=== PATIENT | female | born 1975 | race Caucasian/White ===

== ENCOUNTER 2019-12-02 08:39 | Outpatient (CLI) | payer BC, SELFPAY ==
[2019-12-02 09:02] LABS: Hematocrit 41.5 % (37.0-47.0); Hemoglobin 13.4 g/dL (12.0-15.0); Mean Corpuscular HGB Conc 32.3 g/dl (32-36); Mean Corpuscular Hemoglobin 27.1 pg (26-34); Mean Corpuscular Volume 83.8 fl (80-100); Platelet Count Result 435 k/mm3 (150-375); Red Blood Count 4.95 M/mm3 (4.2-5.4); Red Cell Distribution Width 13.7 % (11.5-14.5); White Blood Count 9.2 K/mm3 (4.5-10.0)
[2019-12-02 09:38] LABS: Creatinine Urine 172.4 mg/dL
[2019-12-02 09:43] LABS: MALB Creatinine Ratio 3.8 mg/g (0-30); Microalbumin Urine Random 6.5 mg/L (0-16.7)
[2019-12-02 11:12] LABS: Alanine Aminotransferase 29 U/L (4-35); Albumin Level 4.3 g/dL (3.5-5.1); Alkaline Phosphatase 81 U/L (38-126); Anion Gap 8 mmol/L (8-16); Aspartate Amino Transferase 34 U/L (14-36); Bilirubin,Total 0.2 mg/dL (0.2-1.3); Blood Urea Nitrogen 14 mg/dL (7-17); Calcium 9.6 mg/dL (8.4-10.2); Carbon Dioxide 31 mmol/L (22-30); Chloride 100 mmol/L (98-107); Estimated Glomerular Filt Rate > 60; Glucose 182 mg/dL (65-105); Magnesium 1.7 mg/dL (1.6-2.3); Potassium 4.2 mmol/L (3.4-5.0); Sodium 139 mmol/L (137-145)
[2019-12-02 11:45] LABS: Thyroid Stimulating Hormone 0.822 uIU/mL (0.465-4.680)
[2019-12-02 12:20] LABS: Folic Acid > 20.0 ng/mL (2.76->20)
== END 2019-12-02 08:40 | disposition home or self-care (01) ==
LOC: ANHLAB 08:41
PROVIDERS: Physician Assistant; PCP Internal Medicine; Visit Provider Internal Medicine
DX: R53.83 Other fatigue (principal); I10 Essential (primary) hypertension; E11.65 Type 2 diabetes mellitus with hyperglycemia
CPT/HCPCS: 36415; 80053; 82043; 82607; 82746; 83735; 84443; 85027

== ENCOUNTER 2020-01-16 17:07 | Outpatient (CLI) | payer BC, SELFPAY ==
[2020-01-16 17:41] LABS: Add Urine Microscopic? YES; Appearance Urine Clear (Clear); Bilirubin Urine Negative (Negative); Blood Urine Negative (Negative); Color Urine Yellow (Yellow); Glucose Urine UA Negative (Negative); Ketones Urine Trace mg/dL (Negative); Leukocyte Esterase Ur Negative LEU/UL (Negative); Nitrate Urine Negative (Negative); Protein Urine Negative (Negative); RBC Urine 0-2 /hpf (0-2); Specific Grav Ur 1.023 (1.001-1.035); Squamous Epithelial Cell Urine Rare /hpf (Few); Urobilinogen Urine Negative mg/dL (<2.0); WBC Urine 0-3 /hpf
== END 2020-01-16 17:08 | disposition home or self-care (01) ==
LOC: ANHLAB 17:08
PROVIDERS: PCP Internal Medicine; Visit Provider Internal Medicine
DX: R10.9 Unspecified abdominal pain (principal)
CPT/HCPCS: 81001

== ENCOUNTER 2021-02-22 07:54 | Outpatient (CLI) | payer BC, SELFPAY ==
[2021-02-22 08:37] LABS: Basophils Absolute Auto 0.1 K/mm3 (0.0-0.1); Basophils Percent Auto 0.7 % (0.2-1.2); Eosinophils Absolute Auto 0.1 K/mm3 (0-0.3); Eosinophils Percent Auto 1.9 % (0-4.4); Hematocrit 36.9 % (37.0-47.0); Hemoglobin 11.9 g/dL (12.0-15.0); Immature Granulocyte Absolute 0.02 K/mm3 (0.00-0.031); Immature Granulocyte Percent A 0.3 % (0-0.5); Lymphocytes Absolute Auto 2.49 K/mm3 (0.9-3.2); Lymphocytes Percent Auto 33.9 % (18.3-44.2); Mean Corpuscular HGB Conc 32.2 g/dl (32-36); Mean Corpuscular Hemoglobin 27.6 pg (26-34); Mean Corpuscular Volume 85.6 fl (80-100); Mean Platelet Volume 8.3 fl (7.4-10.4); Monocytes Absolute Auto 0.6 K/mm3 (0.1-0.6); Monocytes Percent Auto 7.6 % (2.6-8.5); Neutrophils Absolute Auto 4.1 K/mm3 (1.3-6.7); Neutrophils Percent Auto 55.6 % (45.5-73.1); Platelet Count Result 335 k/mm3 (150-375); Red Blood Count 4.31 M/mm3 (4.2-5.4); Red Cell Distribution Width 13.9 % (11.5-14.5); White Blood Count 7.4 K/mm3 (4.5-10.0)
[2021-02-22 08:49] LABS: Creatinine Urine 129.5 mg/dL
[2021-02-22 08:53] LABS: Microalbumin Urine Random 6.5 mg/L (0-16.7)
[2021-02-22 09:28] LABS: Alanine Aminotransferase 20 U/L (4-35); Albumin Level 4.2 g/dL (3.5-5.1); Alkaline Phosphatase 66 U/L (38-126); Anion Gap 7 mmol/L (8-16); Aspartate Amino Transferase 31 U/L (14-36); Bilirubin,Total 0.2 mg/dL (0.2-1.3); Blood Urea Nitrogen 18 mg/dL (7-17); Calcium 9.6 mg/dL (8.4-10.2); Carbon Dioxide 29 mmol/L (22-30); Chloride 101 mmol/L (98-107); Cholesterol 134 mg/dL (0-200); Estimated Glomerular Filt Rate > 60; Glucose 160 mg/dL (65-110); HDL Direct 38 mg/dL; Magnesium 1.7 mg/dL (1.6-2.3); Potassium 4.6 mmol/L (3.4-5.0); Sodium 137 mmol/L (137-145); Triglycerides 100 mg/dL (<150)
[2021-02-22 09:39] LABS: LDL Cholesterol Direct 74 mg/dL
[2021-02-22 10:34] LABS: Folic Acid 18.6 ng/mL (2.76->20)
[2021-02-22 12:18] LABS: Thyroid Stimulating Hormone 0.501 uIU/mL (0.465-4.680)
== END 2021-02-22 07:55 | disposition home or self-care (01) ==
PROVIDERS: PCP Internal Medicine; Referring Provider Internal Medicine; Visit Provider Nurse Practitioner Family
DX: E11.65 Type 2 diabetes mellitus with hyperglycemia (principal); R53.83 Other fatigue; E78.5 Hyperlipidemia, unspecified; E11.9 Type 2 diabetes mellitus without complications; I10 Essential (primary) hypertension
CPT/HCPCS: 36415; 80053; 80061; 82043; 82607; 82746; 83735; 84443; 85025

== ENCOUNTER → 2021-03-11 08:38 | Outpatient (CLI) | payer BC, SELFPAY ==
[2021-03-11 20:05] LABS: SARS-CoV-2 RNA PCR Negative
== END ==
PROVIDERS: PCP Internal Medicine; Visit Provider Internal Medicine
DX: R05.9 Cough, unspecified (principal); Z20.822 Contact with and (suspected) exposure to COVID-19
CPT/HCPCS: C9803; U0003; U0005

== ENCOUNTER → 2021-03-24 03:05 | Outpatient (CLI) | payer BC, SELFPAY ==
[2021-03-24 19:25] LABS: SARS-CoV-2 RNA PCR Negative
== END ==
PROVIDERS: PCP Internal Medicine; Visit Provider Internal Medicine
DX: Z20.822 Contact with and (suspected) exposure to COVID-19 (principal)
CPT/HCPCS: C9803; U0003; U0005

== ENCOUNTER → 2021-03-25 15:10 | Outpatient (CLI) | payer BC, SELFPAY ==
--- NOTE | ~2021-03-25 | XR_ITS ---
EXAMINATION: XR knee RT 3V DATE: 03/25/2021 15:45 INDICATION: Right knee pain. TECHNIQUE: 3 views of right knee including standing views were obtained. COMPARISON: None. FINDINGS: Bone alignment is normal. No fracture. There is mild tricompartmental osteoarthritis charac terized by tiny marginal osteophytes. No joint space narrowing. There is a small knee joint effusion. IMPRESSION: 1. Mild right knee osteoarthritis. 2. Small right knee joint effusion. Reviewed, dictated and finalized at location A. OSE CELLAR CHARGE HAND
--- NOTE | ~2021-03-25 | XR_ITS ---
EXAMINATION: XR knee LT 3V DATE: 03/25/2021 15:45 INDICATION: Left knee pain. TECHNIQUE: 3 views of left knee including standing views were obtained. COMPARISON: None. FINDINGS: Bone alignment is normal. No fracture. There is mild tricompartment osteoarthritis characte rized by tiny marginal osteophytes. No joint space narrowing. No knee joint effusion. IMPRESSION: 1. Mild left knee osteoarthritis. Reviewed, dictated and finalized at location A. CER
== END ==
PROVIDERS: PCP Internal Medicine; Visit Provider Internal Medicine
DX: M17.0 Bilateral primary osteoarthritis of knee (principal); M25.461 Effusion, right knee
CPT/HCPCS: 73562

== ENCOUNTER 2021-05-23 07:36 | Outpatient (CLI) | payer BC, SELFPAY ==
--- NOTE | 2021-05-27 15:02 | WPDSLEEPSTUD ---
Sleep Study Date of Study: 05/23/21 <Allie Bullard, DO - Last Filed: 05/27/21 16:06> Ordering Provider: Baltazar Hernandez DO <Allie Bullard DO - Last Filed: 05/27/21 16:06> Interpreting Physician: Allie Bullard DO <Allie Bullard DO - Last Filed: 05/27/21 16:06> Sleep Study Type: Split Polysomnogram <Allie Bullard DO - Last Filed: 05/27/21 16:06> Height: 1.88 m <Allie Bullard DO - Last Filed: 05/27/21 16:06> Weight: 139.706 kg <Allie Bullard DO - Last Filed: 05/27/21 16:06> Body Mass Index: 39.5 <Allie Bullrad DO - Last Filed: 05/27/21 16:06> Neck Circumference (inches): 19 <Allie Bullard DO - Last Filed: 05/27/21 16:06> [place]: 12 <Allie Bullard DO - Last Filed: 05/27/21 16:06> Reason for Sleep Study Previously diagnosed with MACARENA and prescribed CPAP. Uses CPAP regularly. <Allie Bullard DO - Last Filed: 05/27/21 16:06> Sleep History The patient is a 45-year-old female with asthma, depression, diabetes, hypertension, hyperlipidemia, osteoarthritis, obesity and known MACARENA that had a sleep study ordered by her PCP. the patient rarely awakens from sleep short of breath. She rarely awakens at night with heartburn, belching or cough. She frequently snores loud enough that others complain. she frequently has trouble sleeping when she has a cold. She rarely wakes up gasping for air throughout the night. She Thatch Ali has breathing problems at night observed by others. She occasionally sweats excessively at night. She rarely notices heart palpitations or irregular heartbeats during the night. She occasionally falls asleep during the day but never while driving. She rarely has trouble at school or work due to sleepiness. She occasionally feels unable to move while waking up or falling asleep. She occasionally experiences vivid dreamlike scenes upon awakening or falling asleep. She denies cataplexy. She occasionally has nightmares. She rarely has thoughts racing through her mind. She occasionally feels sad or depressed. She occasionally has anxiety. She denies noticing parts of her body jerk. She denies kicking throughout the night. She occasionally has crawling and aching feelings in her legs as well as leg pain during the night. She denies grinding her teeth during sleep and awakening with morning jaw pain. She occasionally is bothered by pain during the day and awakened by pain during the night. She occasionally wakes up feeling stiff in the morning with sore achy muscles. She occasionally wakes up with pain neck, spine or other joints. She goes to bed between 9 and 10:00 p.m. on weekdays and between 10 and 11:00 p.m. on the weekends. It takes her 1 hour to fall asleep. She wakes up 4 times throughout the night she roll over or switch positions. She is able to fall back asleep within minutes. She wakes up at 6:30 a.m. on the weekdays and between 730 and 8:00 a.m. on the weekends. She typically gets 8 hours of sleep per night. She will not stay in bed after waking up in the morning. She currently lives with her . She denies consuming any caffeinated beverages within 2 hours of bedtime. She does not engage in physical exercise before bedtime. She will watch television before falling asleep. She will occasionally take naps in the afternoon or the evening but they are not refreshing. She drinks 3-4 caffeinated beverages per day. She quit smoking several years ago. She denies alcohol and recreational drug use. <Allie Bullard DO - Last Filed: 05/27/21 16:06> [facility] Past Medical History Medical History: Medical History Anxiety Hyperlipidemia Hypertension Sleep apnea in adult Type 2 diabetes mellitus with hyperglycemia <Allie Bullard DO - Last Filed: 05/27/21 16:06> Family History Family History:
[2021-05-27 16:06] VITALS: BMI 39.5
== END 2021-05-24 08:08 | disposition home or self-care (01) ==
LOC: ANHCSM 07:38
PROVIDERS: PCP Internal Medicine; Visit Provider Internal Medicine
DX: G47.33 Obstructive sleep apnea (adult) (pediatric) (principal)
CPT/HCPCS: 95811

== ENCOUNTER 2021-08-23 07:02 | Outpatient (CLI) | payer BC, SELFPAY ==
[2021-08-23 07:41] LABS: Basophils Absolute Auto 0.1 K/mm3 (0.0-0.1); Basophils Percent Auto 0.6 % (0.2-1.2); Eosinophils Absolute Auto 0.1 K/mm3 (0-0.3); Eosinophils Percent Auto 1.4 % (0-4.4); Hematocrit 40.6 % (37.0-47.0); Hemoglobin 12.7 g/dL (12.0-15.0); Immature Granulocyte Absolute 0.03 K/mm3 (0.00-0.031); Immature Granulocyte Percent A 0.3 % (0-0.5); Lymphocytes Absolute Auto 2.37 K/mm3 (0.9-3.2); Lymphocytes Percent Auto 26.1 % (18.3-44.2); Mean Corpuscular HGB Conc 31.3 g/dl (32-36); Mean Corpuscular Hemoglobin 27.6 pg (26-34); Mean Corpuscular Volume 88.3 fl (80-100); Mean Platelet Volume 8.2 fl (7.4-10.4); Monocytes Absolute Auto 0.6 K/mm3 (0.1-0.6); Monocytes Percent Auto 6.9 % (2.6-8.5); Neutrophils Absolute Auto 5.9 K/mm3 (1.3-6.7); Neutrophils Percent Auto 64.7 % (45.5-73.1); Platelet Count Result 395 k/mm3 (150-375); Red Cell Distribution Width 14.2 % (11.5-14.5); White Blood Count 9.1 K/mm3 (4.5-10.0)
[2021-08-23 07:58] LABS: Cholesterol 150 mg/dL (0-200); HDL Direct 41 mg/dL; Triglycerides 95 mg/dL (<150)
[2021-08-23 08:11] LABS: LDL Cholesterol Direct 79 mg/dL
[2021-08-23 08:13] LABS: Iron 69 ug/dL (37-170)
[2021-08-23 08:14] LABS: Creatinine Urine 131.7 mg/dL
[2021-08-23 08:19] LABS: Microalbumin Urine Random 6.6 mg/L (0-16.7)
[2021-08-23 08:23] LABS: Percent Iron Saturation 18 % (20-50)
[2021-08-23 08:27] LABS: Thyroid Stimulating Hormone 0.688 uIU/mL (0.465-4.680)
[2021-08-23 09:09] LABS: Folic Acid 19.2 ng/mL (2.76->20)
== END 2021-08-23 07:03 | disposition home or self-care (01) ==
LOC: ANHLAB 07:04
PROVIDERS: PCP Internal Medicine; Visit Provider Internal Medicine
DX: E11.65 Type 2 diabetes mellitus with hyperglycemia (principal); D64.9 Anemia, unspecified; R53.83 Other fatigue
CPT/HCPCS: 36415; 80061; 82043; 82607; 82746; 83540; 83550; 84443; 85025

== ENCOUNTER 2021-09-24 07:07 | Outpatient (CLI) | payer BC, SELFPAY ==
[2021-09-24 08:15] LABS: Alanine Aminotransferase 18 U/L (6-35); Albumin Level 4.3 g/dL (3.5-5.1); Alkaline Phosphatase 77 U/L (38-126); Anion Gap 5 mmol/L (8-16); Aspartate Amino Transferase 24 U/L (14-36); Bilirubin,Total 0.3 mg/dL (0.2-1.3); Blood Urea Nitrogen 19 mg/dL (7-17); Calcium 9.1 mg/dL (8.4-10.2); Carbon Dioxide 30 mmol/L (22-30); Chloride 102 mmol/L (98-107); Estimated Glomerular Filt Rate > 60; Glucose 118 mg/dL (65-110); Potassium 4.1 mmol/L (3.4-5.0); Sodium 137 mmol/L (137-145)
== END 2021-09-24 07:08 | disposition home or self-care (01) ==
LOC: ANHLAB 07:08
PROVIDERS: PCP Internal Medicine; Visit Provider Internal Medicine
DX: E11.65 Type 2 diabetes mellitus with hyperglycemia (principal); D64.9 Anemia, unspecified; R53.83 Other fatigue
CPT/HCPCS: 36415; 80053

== ENCOUNTER 2022-01-07 14:31 | Emergency (ER) | payer BC, SELFPAY ==
[2022-01-07] VITALS (16 sets, daily range): BP systolic 123–157; BP diastolic 77–99; PULSE 91–114; RESP 10–19; TEMP 36.5; O2SAT 94–99
--- NOTE | 2022-01-07 14:35 | ECG_ITS ---
Measurements Intervals Banks Rate: 97 P: 28 ME: 164 QRS: -19 QRSD: 100 T: 66 QT: 354 QTc: 450 Interpretive Statements SINUS RHYTHM DELAYED PRECORDIAL R/S TRANSITION BORDERLINE ECG NO PREVIOUS ECG AVAILABLE FOR COMPARISON Electronically Signed On 01-07-2022 15:01:05 CDT by Richy Santiago D.O.
[2022-01-07] MEDS: SODIUM CHLORIDE 0.9% IV 1,000 ML 998.89 ML IV CONT (16:13)
[2022-01-07 16:15] LABS: Glucose Point of Care 84 mg/dl (65-105)
[2022-01-07 16:22] LABS: Basophils Absolute Auto 0.1 K/mm3 (0.0-0.1); Basophils Percent Auto 0.5 % (0.2-1.2); Eosinophils Absolute Auto 0.1 K/mm3 (0-0.3); Eosinophils Percent Auto 1.3 % (0-4.4); Hematocrit 41.3 % (37.0-47.0); Hemoglobin 13.5 g/dL (12.0-15.0); Immature Granulocyte Absolute 0.03 K/mm3 (0.00-0.031); Immature Granulocyte Percent A 0.3 % (0-0.5); Lymphocytes Absolute Auto 2.78 K/mm3 (0.9-3.2); Lymphocytes Percent Auto 27.9 % (18.3-44.2); Mean Corpuscular HGB Conc 32.7 g/dl (32-36); Mean Corpuscular Hemoglobin 27.9 pg (26-34); Mean Corpuscular Volume 85.3 fl (80-100); Monocytes Absolute Auto 0.6 K/mm3 (0.1-0.6); Monocytes Percent Auto 6.1 % (2.6-8.5); Neutrophils Absolute Auto 6.4 K/mm3 (1.3-6.7); Neutrophils Percent Auto 63.9 % (45.5-73.1); Platelet Count Result 445 k/mm3 (150-375); Red Blood Count 4.84 M/mm3 (4.2-5.4); Red Cell Distribution Width 14.6 % (11.5-14.5)
--- NOTE | 2022-01-07 16:31 | ED.GENADULT ---
HPI - General Adult General Chief complaint: Arrhythmia/Palpitations Stated complaint: rapid HR all morning Time Seen by Provider: 01/07/22 15:30 History of Present Illness HPI narrative: this is a 38-year-old woman presenting to ED with a chief complaint of palpitations for the month. Patient's had COVID on December 15. She says started about 1 week after that she is having intermittent episodes of palpitations and not feeling right. There is associated with some shortness of breath. There is no associated chest pain. Usually they last for several hours and then resolve on their own. Today they started ADM and last until 1:00 p.m.. She is not currently having palpitations. The patient denies any source of dehydration such as nausea vomiting diarrhea decreased oral intake. Patient has a history of anxiety with panic attacks although she says this is not feel like them. Patient denies any lower extremity edema, history of blood clots, recent trauma or or cancer. Related Data Home Medications Medication Instructions Recorded Confirmed escitalopram oxalate 20 mg tablet 20 mg PO DAILY 03/16/19 12/31/21 multivitamin (Multiple Vitamins 1 tablet PO DAILY 03/16/19 12/31/21 tablet) venlafaxine 150 mg 150 mg PO DAILY 03/16/19 12/31/21 capsule,extended release 24 hr melatonin 10 mg capsule 10 mg PO QHS 12/31/21 12/31/21 Allergies Allergy/AdvReac Type Severity Reaction Status Date / Time vancomycin Allergy Mild Hives Verified 12/31/21 09:04 Review of Systems Review of Systems: CONSTITUTIONAL: Denies night sweats. EYES: No eye pain ENT: Denies rhinorrhea CARDIOVASCULAR: Denies palpitations RESPIRATORY: Denies hemoptysis GASTROINTESTINAL: Denies hematemesis GENITOURINARY: Denies hematuria. SKIN: Denies rash MUSCULOSKELETAL: Denies myalgia. NEUROLOGIC: Denies weakness. PSYCHIATRIC: Denies delusions PMFSH Past Medical History Medical History Anemia Anxiety Bilateral hand numbness Bilateral knee pain Hyperlipidemia Hypertension Insomnia Obesity MACARENA (obstructive sleep apnea) Peripheral neuropathy Type 2 diabetes mellitus with hyperglycemia Surgical History Surgical History History of surgery on wrist 05/05/21, carpal tunnel right Previous back surgery x2 Family History Family History Other Asthma Depression Diabetes mellitus Family history of alcoholism Family history of lymphoma Family history of thyroid disease Hypertension Malignant neoplasm of prostate Social History Social History Smoking packs per day: 0.5 Smoking cigarettes per day: 10.0 Years smoked: 10 Smoking pack-years: 5.00 Smoking status: Former smoker Alcohol intake: never Substance use: never Exam Narrative: APPEARANCE: No apparent distress. Head atraumatic. EYES: PERRLA/EOMI, NOSE: Normal no drainage NECK: Supple, Trachea midline RESPIRATORY: CTAB, No increased work of breathing. CARDIOVASCULAR: S1S2 appreciated ABDOMINAL: Soft, nontender, nondistended, MUSCULOSKELETAl: No obvious deformities NEURO: Alert. Moving 4/4 extremities SKIN:: Warm, dry. Normal color PSYCHIATRIC: Normal affect Course Vital Signs Vital signs: Vital Signs Temperature 97.7 F 01/07/22 14:36 Pulse Rate 94 01/07/22 14:36 Respiratory Rate 18 01/07/22 14:36 Blood Pressure 157/84 H 01/07/22 14:36 Pulse Oximetry 99 01/07/22 14:36 Oxygen Delivery Room Air 01/07/22 14:36 Temperature 97.7 F 01/07/22 14:36 Pulse Rate 94 01/07/22 14:36 Respiratory Rate 18 01/07/22 14:36 Blood Pressure 157/84 H 01/07/22 14:36 Pulse Oximetry 99 01/07/22 14:36 Oxygen Delivery Room Air 01/07/22 14:36 Medical Decision Making MDM Narrative Medical decision making narrative: Is
[2022-01-07 16:35] LABS: Anion Gap 10 mmol/L (8-16); Blood Urea Nitrogen 19 mg/dL (7-17); Calcium 9.5 mg/dL (8.4-10.2); Carbon Dioxide 27 mmol/L (22-30); Chloride 100 mmol/L (98-107); Estimated CRCL calculation 160 ml/min; Estimated Glomerular Filt Rate > 60; Glucose 83 mg/dL (65-110); Potassium 3.8 mmol/L (3.4-5.0); Sodium 137 mmol/L (137-145)
[2022-01-07 16:52] LABS: Troponin I < 0.012 ng/mL (0.000-0.034)
== END 2022-01-07 17:39 | disposition home or self-care (01) ==
PROVIDERS: Emergency Provider Emergency Medicine; PCP Internal Medicine
DX: R00.2 Palpitations (principal); I49.1 Atrial premature depolarization; E78.5 Hyperlipidemia, unspecified; I10 Essential (primary) hypertension; G47.33 Obstructive sleep apnea (adult) (pediatric); E11.42 Type 2 diabetes mellitus with diabetic polyneuropathy; E66.9 Obesity, unspecified; Z68.41 Body mass index [BMI] 40.0-44.9, adult; F41.9 Anxiety disorder, unspecified; Z87.891 Personal history of nicotine dependence; Z79.84 Long term (current) use of oral hypoglycemic drugs
CPT/HCPCS: 36415; 80048; 82948; 83735; 84484; 85025; 93005; 99284; J7030

== ENCOUNTER 2023-03-20 09:06 | Outpatient (CLI) | payer BC, SELFPAY ==
[2023-03-20 11:23] LABS: Basophils Absolute Auto 0.1 K/mm3 (0.0-0.1); Basophils Percent Auto 0.6 % (0.2-1.2); Eosinophils Absolute Auto 0.1 K/mm3 (0-0.3); Eosinophils Percent Auto 1.2 % (0-4.4); Hematocrit 44.6 % (37.0-47.0); Immature Granulocyte Absolute 0.04 K/mm3 (0.00-0.031); Immature Granulocyte Percent A 0.5 % (0-0.5); Immature Platelet Fraction Pct 1.5 % (0.9-11.2); Lymphocytes Absolute Auto 2.18 K/mm3 (0.9-3.2); Lymphocytes Percent Auto 26.5 % (18.3-44.2); Mean Corpuscular HGB Conc 31.4 g/dl (32-36); Mean Corpuscular Hemoglobin 27.4 pg (26-34); Mean Corpuscular Volume 87.3 fl (80-100); Mean Platelet Volume 8.5 fl (7.4-10.4); Monocytes Absolute Auto 0.6 K/mm3 (0.1-0.6); Monocytes Percent Auto 7.1 % (2.6-8.5); Neutrophils Absolute Auto 5.3 K/mm3 (1.3-6.7); Neutrophils Percent Auto 64.1 % (45.5-73.1); Platelet Count Result 478 k/mm3 (150-375); Red Blood Count 5.11 M/mm3 (4.2-5.4); Red Cell Distribution Width 14.5 % (11.5-14.5); White Blood Count 8.2 K/mm3 (4.5-10.0)
[2023-03-20 11:38] LABS: Alanine Aminotransferase 20 U/L (6-35); Albumin Level 4.4 g/dL (3.5-5.1); Alkaline Phosphatase 102 U/L (38-126); Anion Gap 8 mmol/L (8-16); Aspartate Amino Transferase 28 U/L (14-36); Bilirubin,Total 0.3 mg/dL (0.2-1.3); Blood Urea Nitrogen 17 mg/dL (7-17); Carbon Dioxide 30 mmol/L (22-30); Chloride 99 mmol/L (98-107); Cholesterol 162 mg/dL (0-200); Estimated Glomerular Filt Rate > 60; Glucose 154 mg/dL (65-110); HDL Direct 42 mg/dL; Potassium 4.1 mmol/L (3.4-5.0); Sodium 137 mmol/L (137-145); Triglycerides 101 mg/dL (<150)
[2023-03-20 11:48] LABS: LDL Cholesterol Direct 96 mg/dL
[2023-03-20 12:07] LABS: Thyroid Stimulating Hormone 0.532 uIU/mL (0.465-4.680)
[2023-03-20 12:27] LABS: Creatinine Urine 64.1 mg/dL
[2023-03-20 12:41] LABS: Vitamin D 25 Hydroxy 24.6 ng/mL
[2023-03-20 13:00] LABS: MALB Creatinine Ratio < 9.4 mg/g (0-30); Microalbumin Urine Random < 6.0 mg/L (0-16.7)
== END 2023-03-20 09:07 | disposition home or self-care (01) ==
LOC: ANHLAB 09:11
PROVIDERS: Nurse Practitioner Family; PCP Internal Medicine; Visit Provider Internal Medicine
DX: E78.5 Hyperlipidemia, unspecified (principal); I10 Essential (primary) hypertension; E11.65 Type 2 diabetes mellitus with hyperglycemia; R53.83 Other fatigue; E66.01 Morbid (severe) obesity due to excess calories
CPT/HCPCS: 36415; 80053; 80061; 82043; 82306; 82607; 84443; 85025; 85055

== ENCOUNTER 2024-06-17 08:54 | Outpatient (CLI) | payer BC, SELFPAY ==
--- OUTSIDE RECORDS SUMMARY | 2024-06-17 08:57 | XMS_ITS | Referral Summary ---
Author Organization [facility] Address [address] [place] [address] Care Team Providers Care Recruiting Coordinator Name Role Phone Unavailable Primary Care Provider Unavailabl e Source Comments [facility],non-owned Affiliates and Associated Physician Practices is amultiple site organization consisting of ambulatory clinics and hospital sitesin [place] and [place]. This disclosure is being madepursuant to the Care Everywhere program and may not contain all information available regarding this patient. Last updated 17.[facility] Social History Tobacco Use Types Packs/Day Years Used Date Smoking Tobacco: Never Assessed Sex and Gender Information Value Date Recorded Sex Assigned at Not on file Gender Identity Not on file Sexual Orientation Not on file Plan of Treatment Not on file
--- OUTSIDE RECORDS SUMMARY | 2024-06-17 08:57 | XMS_ITS | Clinical Summary ---
Author Organization [facility] Address [address] [place] [address] Care Team Providers Care Db2 Dba Name Role Phone Baltazar Hernandez MD Primary Care Provider [phone] Allergies Active Allergy Reactions Criticality Noted Date Comments Vancomycin Fever,Flushing (skin),Hives,Itching,Rash,Swelling Medium 08/11/1995 Medications busPIRone (BUSPAR) 5 mg tabletIndications :Generalized Anxiety Disorder Take 5 mg by mouth every morning Active diclofenac DR (VOLTAREN) 75 mg EC tablet Take 75 mg by mouth as needed for pain 1 Active dulaglutide (TRULICITY) 3 mg/0.5 mL pen injectorIndicatio ns:type 2 diabetes mellitus Inject 3 mg under the skin once a week Wednesday Active escitalopram (LEXAPRO) 20 mg tabletIndications :Anxiety with Depression Take 20 mg by mouth every morning Active ezetimibe (ZETIA) 10 mg tabletIndications :hypercholesterol emia Take 10 mg by mouth every morning Active felodipine (PLENDIL) 5 mg 24 hr tabletIndications :hypertension Take 5 mg by mouth every morning Active hydroCHLOROthiazi de (HYDRODIURIL) 25 mg tabletIndications :hypertension Take 25 mg by mouth maintenance of way superintendent before breakfast Active insulin glargine (TOUJEO MAX) 300 unit/mL (3 mL) pen for injectionIndicati ons:type 2 diabetes mellitus Inject 80 Units under the skin nightly Active losartan (COZAAR) 100 mg tabletIndications :hypertension Take 100 mg by mouth every morning Active venlafaxine XR (EFFEXOR-XR) 150 mg 24 hr capsuleIndication s:Anxiety with Depression Take 150 mg by mouth every morning Active multivitamin capsuleIndication s:Vitamin Deficiency Prevention Take 1 capsule by mouth every morning Active melatonin 5 mg tablet Take 10 mg by mouth nightly as needed (sleep) Active ibuprofen (ADVIL,MOTRIN) 200 mg tab/cap Take 400 mg by mouth every 6 (six) hours as needed for pain Active dapagliflozin propanediol (FARXIGA ORAL) Take 10 mg by mouth every morning Active insulin regular U-500 (HumuLIN R) 500 unit/mL CONCENTRATED vial for injectionIndicati ons:Diabetes Mellitus with Severe Insulin Resistance,75-80 units in AM 60 units with Dinner Inject under the skin 2 (two) times a day with meals Active Active Problems Problem Noted Date Diagnosed Date Palpitations 01/23/2022 Hyperlipidemia 01/23/2022 Secondary hypertension 01/23/2022 Diabetes mellitus 01/23/2022 Morbid obesity 01/23/2022 Left carpal tunnel syndrome 11/03/2021 Overview (11/03/2021): Added automatically from request for surgery [id number] Right carpal tunnel syndrome 04/23/2021 Overview (04/23/2021): Added automatically from request for surgery [id number] Closed fracture of fourth cervical vertebra 01/10 Surgical History Surgery Date Site/Laterality Comments BACK SURGERY x2- lumbar CARPAL TUNNEL RELEASE 04/12/2021 - 05/12/2021 Right SPINE SURGERY 1993 Medical History Medical History Date Comments Anxiety and depression MACARENA (obstructive sleep apnea) we ars CPAP HTN (hypertension) well controll ed HLD (hyperlipidemia) on statin Motion sickness rare Diabetes mellitus (HCC) on Insul in and Trulicity. A1C ~8.0 02/2021 Family History Medical History Relation Name Comments Alcohol abuse Brother 1 Eloy Drug abuse Brother 1 Eloy Cancer Brother 2 Ramón Cancer Father Honorio Diabetes Father Honorio Hypertension Father Honorio Mental illness Father's Sister Brit Hearing loss Maternal Grandfather Guido Cancer Mother September Depression Mother September Hearing loss Mother September Obesity Mother September Diabetes Paternal Grandfather Bill Heart attack Paternal Grandfather Bill Stroke Paternal Grandfather Bill Vision loss Paternal Grandfather Bill Diabetes Paternal Grandmother Devika Mental illness Paternal Grandmother Devika Anesthesia problems Neg Hx Relation Name Status Comments Brother 1 Eloy Brother 2 Ramón Father Honorio Father's Sister Brit Maternal Grandfather Guido Mother Erendira Paternal Grandfather Dhruv Paternal Grandmother Devika Social History Tobacco Use Types Packs/Day Years Used Date Smoking Tobacco: Former Cigarettes 0.3 16 1 990 - 2006 Smokeless Tobacco: Never Tobacco Cessation:Counseling Given: Not Answered AUDIT-C Answer Date Recorded Q1: How often do you have a drink containing alc ohol? Monthly or less 11/17/2021 Q2: How many drinks containi ng alcohol do you have on a typical day when you are drinking? 1 or 2 11/17/2021 Frequency of Binge Drinking Not on file 11/2021 Personal Safety Answer Date Recorded Getting School Help Needed Not on file 06/11 Comments No Sex and Gender Information Value Date Recorded Sex Assigned at Not on file Legal Sex Female 5:09 PM CDT Gender Identity Not on file Sexual Orientation Lesbian 04/21/2021 4: 52 PM [employer] Obstetrics History Last Filed Vital Signs Vital Sign Reading Time Taken Comments Blood Pressure 118/76 01/23/2022 1:08 PM CDT Pulse 90 01/23/2022 1:08 PM CDT Temperature 36.4 C (97.5 F) 12/01/2021 9:40 AM CDT Respiratory Rate 14 12/01/2021 9:40 AM CDT Oxygen Saturation 98% 01/23/2022 1:08 PM CDT Inhaled Oxygen Concentration - - Weight 142 kg (313 lb) 01/23/2022 1:08 PM CDT Height 188 cm (6' 2 ) 01/23/2022 1:08 PM CDT Body Mass Index 40.19 01/23/2022 1:08 PM CDT Plan of Treatment Health Maintenance Due Date Last Done Comments Albumin Creatinine Ratio, Urine 1973 Breast Cancer Screening-Mammogram 1973 Cervical Cancer Screening 1973 Colon Cancer Screening-Colonoscopy 1973 Depression Screening 1973 Hemoglobin A1C 1973 Hepatitis C Screening 1973 eGFR 1973 Dilated Eye Exam 1973 Foot Exam 1973 Hepatitis B Screening 06/30/1991 Regular Well Visit/Exam 18-64 06/30/1991 Pneumococcal vaccine <65 (1 of 2 - PCV) 1992 DTaP/Tdap/Td Vaccine (1 - Tdap) 05/03/2018 9 Lipid Panel 01/23/2023 01/23/2022 Zoster Vaccine (1 of 2) 06/30/2023 Covid-19 Vaccine (4 - season) 2023 04/03/2021, 07/04/2020, 06/13/2020 Influenza Vaccine (#1) 2023 02/21/2020 Procedures Procedure Name Priority Date/Time Associated Diagnosis Comments POCT LIPID PANEL Routine 01/23/2022 4:17 PM CDT Hyperlipidemia, unspecified hyperlipidemia type from Last 3 Months or Most Recently Relevant to Health Maintenance Results * POCT lipid panel (01/23/2022 4:17 PM CDT) Cholesterol, POC 138 mg/dL HDL, POC 37 mg/dL Triglycerides, POC 100 mg/dL LDL Cholesterol POC 81 mg/dL Chol/HDL Ratio, POC 3.7 Non-HDL Cholesterol, POC 101 mg/dL Cholesterol Total, POC 138 mg/dL Capillary blood 01/23/2022 4 :17 PM CDT [facility] Courtney Lopez MD POINT OF CARE TEST YOU SANDERS Final Result from Last 3 Months or Most Recently Relevant to Health Maintenance Insurance [employer] [place] Care Teams Db2 Dba Relationship Specialty Start Date End Date Baltazar Hernandez MD [address] [facility] [address] [place] [address] PCP - General Internal Medicine 03/20/21
--- OUTSIDE RECORDS SUMMARY | 2024-06-17 08:57 | XMS_ITS ---
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 Name Role Phone Nilam Molina Unavailable [phone] Allergies Allergen (clinical drug ingredient) Drug/Non Drug Allergy documented on EMR Reaction Allergy Type Onset Date Status vancomycin Vancomycin Unknown Drug Allergy 06/28/2023 Acti ve REASON FOR VISIT f/u medications Medications Medication SIG (Take, Route, Frequency, Duration) Notes Start Date End Date Status busPIRone HCl 10 MG 1 tablet Oral Once a day for 90 days 06/28/2023 Active Escitalopram Oxalate 20 MG 1 tablet Oral Once a day for 90 days 06/28/2023 Active Venlafaxine HCl ER 150 MG 1 capsule Oral Once a day for 90 days 06/28/2023 Active FREESTYLE JH 2 SENSOR KIT *Reorder from [employer] for eRx and Interaction Alerts* 06/28/2023 Active Melatonin *[facility]* 06/28/2023 Active Felodipine ER 5 mg Oral 06/28/2023 Active Ezetimibe 10 MG Oral 06/28/2023 Act sang Ketoconazole 2% External 06/28/2023 Act sang Farxiga 10 MG Oral 06/28/2023 Activ e BD ULTRA-FINE PEN NEEDLE 32 gauge x MISCELLANEOUS *Reorder from [employer] for eRx and Interaction Alerts* 06/28/2023 Active Clobetasol Propionate 0.05 % External 06/28/2023 Active Losartan Potassium 100 MG Oral 06/28/2023 Active Mounjaro 10 MG/0.5ML Subcutaneous *Reorder fr om [employer] for eRx and Interaction Alerts* 06/28/2023 Active Glimepiride 4 MG Oral 06/28/2023 Ac tive hydroCHLOROthiazide 25 MG Oral 06/28/2023 Active Hydrocortisone 2.50% External 06/28/2023 Active Social History Sex Assigned At : Social History Observation Description Sex Assigned At Female Problems Problem Type SNOMED Code ICD Code Onset Dates Problem Status W/U Status Risk Notes Problem [id number] MDD (major depressive disorder), recurrent episode, mild (F33.0) Active confirmed Problem Generalized anxiety disorder (23667884) Generalized anxiety disorder (F41.1) Active confirmed Problem Primary insomnia (5028375) Primary insomnia (F51.01) Active confirmed Vital Signs Respiratory Rate 18 /min 12/27/2023 Height 74.00 in 12/27/2023 Weight 322 lbs 12/27/2023 BMI 41.34 kg/m2 12/27/2023 Height-cm 187.96 cm 12/27/2023 Weight-kg 146.06 kg 12/27/2023 Encounters Encounter Location Date Provider Diagnosis [facility] [employer] [facility] [address] [facility] [address] [place] [address] 12/27/2023 Nilam Molina MDD (major depressiv e disorder), recurrent episode, mild F33.0 ; Generalized anxiety disorder F41.1 and Primary insomnia F51.01 Assessments Encounter Date Diagnosis (ICD Code) Assessment Notes Treatment Notes Treatment Clinical Notes Section Notes 12/27/2023 MDD (major depressive disorder), recurrent episode, mild (ICD-10 - F33.0) 1. Mild major depression - stable Buspar 10mg a day in am Lexapro 20 mg daily Effexor 150 mg daily continue therapy schedule for colonoscopy, mammogram PAP 2023 seeing eye provider 06/28/23 2. Generalized anxiety disorder - stable Lexapro 20 mg daily Buspar 10mg a day in am sleep study completed- CPAP 12/27/2023 Generalized anxiety disorder (ICD-10 - F41.1) 1. Mild major depression - stable Buspar 10mg a day in am Lexapro 20 mg daily Effexor 150 mg daily continue therapy schedule for colonoscopy, mammogram PAP 2023 seeing eye provider 06/28/23 2. Generalized anxiety disorder - stable Lexapro 20 mg daily Buspar 10mg a day in am sleep study completed- CPAP 12/27/2023 Primary insomnia (ICD-10 - F51.01) 1. Mild major depression - stable Buspar 10mg a day in am Lexapro 20 mg daily Effexor 150 mg daily continue therapy schedule for colonoscopy, mammogram PAP 2023 seeing eye provider 06/28/23 2. Generalized anxiety disorder - stable Lexapro 20 mg daily Buspar 10mg a day in am sleep study completed- CPAP Plan Of Treatment Medication Medication Name Sig Start Date Stop Date Notes busPIRone HCl 10 MG 1 tablet Oral Once a day for 90 days 06/28/2023 06/24/2024 Escitalopram Oxalate 20 MG 1 tablet Oral Once a day for 90 days 06/28/2023 Venlafaxine HCl ER 150 MG 1 capsule Oral Once a day for 90 days 06/28/2023 Next Appt Details Follow Up: 6 Months, Reason: F/U Provider Name:Nilam Molina , 06/26/2024 08:15:00 AM, [address], [facility] [address], [place], [address], Progress Notes * CHRIS OLIVA ADOB: (48 yo F)Acc No.[id number]:12/27/2023 Patient: CHRIS BAKER Provider: Mohamud MOLINA PMHNP :1975 A ge:48 Y S ex:Female Date:12/27/2023 [address] [facility] Subjective: * Chief Complaints: * 1 . F/u medications. * HPI: H istory of Presenting Problem: Sleep Problems HPIReported by jamison santiago.General Sleep: n ormal sleep; not sleepy during the day (daytime somnolence); no early childhood lead teacher headache Onset/Timing: g radual onset; chronic Severity: d oes not interfere with daily activities; no drowsiness while driving; drowsiness not affecting work; mild Pain disturbing sleep: i mproved with current treatment Prescribed sleep medications: c urrently taking medication to help sleep CPAP: u ses CPAP every night Associated Symptoms: s leep problems for years, sleep problems are getting better and the patient has problems getting to sleepNotes:Insomnia chronic stable mild over last few months mild, sleeping use CPAP does not take Melatonin Suicide AssessmentReported by jamison santiago.Notes: NO SI/HI, no plans or intent no thoughts harm to self or others Follow up depression, anxiety and sleep chronic stable since last visit I feel timmy goood I was on vacation for week and camped and relaxing, now back to work today, depression and anxiety not been too bad, things been going well and Busapr at 10 mg daose in am been working well, denies r estless or fidgety or mind racing, no sad or down, no hopeless or helpless sleep is off and on, sleep at least 5- 8 hours, I in bed 8 hours and depend on how long to fall asleep some nights right to sleep and BS levels, CPAP nightly, I am better with Mounjaro with appetite and I had to be off it couple weeks with short supply and back on it and now low appetite being on it and ? my A1C 8.0 last time, and motivation and interest alright and also fine with concentration and focus, medications are good, no SI/HI no del, no psychosis ETOH denies smoking denies drugs denies labs with Dr. Hernandez. dad liver cancer, 2020 rx hx Lexapro Effexor. * ROS: Jamison santiago reports s leep apnea (CPAP) b ut reports no cough; covid 12/15/21 had sleep study completed. She reports a rthralgias/joint pain; h and surgery 2021. She reports f atigue. She reports no fever, no significant weight gain, and weight loss unsure on Mounjaro recently. She reports wears glasses/contact lenses. She reports no chest pain, no arm pain on exertion, no shortness of breath when walking, no shortness of breath when lying down, no palpitations, no known heart murmur, and no ankle swelling. She reports no abdominal pain, no nausea, no vomiting, no constipation, normal appetite, no diarrhea, and no GERD. She reports no incontinence, no difficulty urinating, nd no increased frequency. She reports no gait dysfunction. She reports no depression, no sleep disturbances, feeling safe in a relationship, no alcohol abuse, no anxiety, no hallucinations, no suicidal thoughts, no mood swings, no memory loss, and no agitation. * Medical History: P morgan: Acute COVID-19, Generalized anxiety disorder, Mild major depression, Primary insomnia, ,. * Medications: T aking Mounjaro 10 MG/0.5ML Solution Pen-injector Subcutaneous , Notes to Pharmacist: *[facility] for eRx and Interaction Alerts*, Taking Glimepiride 4 MG Tablet Oral , Taking hydroCHLOROthiazide 25 MG Tablet Oral , Taking Hydrocortisone 2.50% Cream External , Taking Losartan Potassium 100 MG Tablet Oral , Taking Clobetasol Propionate 0.05 % Ointment External , Taking busPIRone HCl 10 MG Tablet Oral , Taking Escitalopram Oxalate 20 MG Tablet Oral , Taking Ketoconazole 2% Cream External , Taking Farxiga 10 MG Tablet Oral , Taking BD ULTRA-FINE PEN NEEDLE 32 gauge x 5/32 NEEDLE, DISPOSABLE MISCELLANEOUS , Notes to Pharmacist: *[facility] for eRx and Interaction Alerts*, Taking FREESTYLE JH 2 SENSOR KIT , Notes to Pharmacist: *[facility] for eRx and Interaction Alerts*, Taking Felodipine ER 5 mg Tablet Extended Release 24 Hour Oral , Taking Venlafaxine HCl ER 150 MG Capsule Extended Release 24 Hour Oral , Taking Ezetimibe 10 MG Tablet Oral , Taking Melatonin , Notes to Pharmacist: *Pick strength-form from [employer] for eRX*, Discontinued busPIRone HCl 5 MG Tablet Oral , Discontinued Lexapro 20 MG Tablet Oral , Discontinued Effexor XR 150 MG Capsule Extended Release 24 Hour Oral * Allergies: V ancomycin: Allergy - Onset Date 06/28/2023. Objective: * Vitals: R R:18/min, Wt:322lbs, Wt-k.06 kg, Ht: 74.00 in, Ht-cm: 187.96 cm, BMI:41.34Index, Body Surface Area: 2.76. * Examination: P sychiatry: Appearance: w ell-groomed, well-nourished, appears stated age, over weight. Abnormal body movements: n one. Affect / mood: a ppropriate, full range. Aggression: l ow. Anger control: g ood. Attention: g ood. Attitude: c ooperative. Homicidal ideation: n one. Suicidal ideation: n one. Memory status: n o impairment noted. Degree of awareness of surroundings: w ithin normal limits.? Delusions: n o. Hallucinations: n o. Impulse control: g ood. Insight: g ood. Intellectual functioning: a verage. Comprehension - Intellectual function: a verage. Judgement: g ood. Orientation: a wake, alert and oriented x 3. Perceptual disorders: n o perceptual disorder noted. Psychomotor activity: w ithin normal range. Sexual impulse control: g ood. Speech / language: a ppropriate pitch/modulation, clear and coherent, normal rate, volume, and articulation (RVR), proper grammar used. Thought content: a ppropriate. Thought process: i ntact. Assessment: * Assessment: 1. M DD (major depressive disorder), recurrent episode, mild - F33.0 (Primary) 2 . G eneralized anxiety disorder - F41.1 3 . P rimary insomnia - F51.01? 1. Mild major depression - stable B uspar 10mg a day in am Lexapro 20 mg daily Effexor 150 mg daily continue therapy schedule for colonoscopy, mammogram PAP 2023 seeing eye provider 06/28/23 2. Generalized anxiety disorder - stable Lexapro 20 mg daily Buspar 10mg a day in am sleep study completed- CPAP Plan: * Treatment: 2. G eneralized anxiety disorder Refill busPIRone HCl Tablet, 10 MG, 1 tablet, Oral, Once a day, 90 days, 90 Tablet, Refills 1. * Procedure Codes: G 2211 VISIT COMPLEXITY INHERENT TO ONGOING CARE RELATED TO A PATIENT'S SINGLE, SERIOUS CONDITION OR A COMPLEX CONDITION * Follow Up: 6 Months (Reason: F/U) * Billing Information: * Visit Code: 28023 OFFICE OUTPATIENT VISIT 25 MINUTES DETAILED HISTORY AND EXAM/MODERATE MEDICAL DECISION MAKING. * Procedure Codes: G2211 VISIT COMPLEXITY INHERENT TO ONGOING CARE RELATED TO A PATIENT'S SINGLE, SERIOUS CONDITION OR A COMPLEX CONDITION. 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 and Physical Notes * HPI (History of Present Illness) Category Sub-Category Detail Notes Category Not es History of Presenting Problem Sleep Problems HPIReported by patient.General Sleep: normal sleep; not sleepy during the day (daytime somnolence); no early childhood lead teacher headache Onset/Timing: gradual onset; chronic Severity: does not interfere with daily activities; no drowsiness while driving; drowsiness not affecting work; mild Pain disturbing sleep: improved with current treatment Prescribed sleep medications: currently taking medication to help sleep CPAP: uses CPAP every night Associated Symptoms: sleep problems for years, sleep problems are getting better and the patient has problems getting to sleepNotes:Insomnia chronic stable mild over last few months mild, sleeping use CPAP does not take Melatonin Suicide AssessmentReported by patient.Notes: NO SI/HI, no plans or intent no thoughts harm to self or others Follow up depression, anxiety and sleep chronic stable since last visit I feel timmy goood I was on vacation for week and camped and relaxing, now back to work today, depression and anxiety not been too bad, things been going well and Busapr at 10 mg daose in am been working well, denies restless or fidgety or mind racing, no sad or down, no hopeless or helpless sleep is off and on, sleep at least 5- 8 hours, I in bed 8 hours and depend on how long to fall asleep some nights right to sleep and BS levels, CPAP nightly, I am better with Mounjaro with appetite and I had to be off it couple weeks with short supply and back on it and now low appetite being on it and my A1C 8.0 last time, and motivation and interest alright and also fine with concentration and focus, medications are good, no SI/HI no del, no psychosis ETOH denies smoking denies drugs denies labs with Dr. Hernandez. dad liver cancer, 2020 rx hx Lexapro Effexor Examination Category Sub-Category Detail Notes Category Not es Psychiatry Appearance: well-groomed, we ll-nourished, appears stated age, over weight Attitude: cooperative Psychomotor activity: within normal rang e Abnormal body movements: none Attention: good Degree of awareness of surroundings: wit hin normal limits Orientation: awake, alert and ted ented x 3 Affect / mood: appropriate, full ra nge Speech / language: appropriate pitch/mo dulation, clear and coherent, normal rate, volume, and articulation (RVR), proper grammar used Insight: good Judgement: good Thought process: intact Thought content: appropriate Perceptual disorders: no perceptual diso rder noted Aggression: low Anger control: good Suicidal ideation: none Homicidal ideation: none Intellectual functioning: average Impulse control: good Sexual impulse control: good Memory status: no impairment noted Delusions: no Hallucinations: no Comprehension - Intellectual function: a verage
--- OUTSIDE RECORDS SUMMARY | 2024-06-17 08:57 | XMS_ITS | Referral Summary ---
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 Active insulin glargine (TOUJEO MAX) [...] (11/03/2021): Added automatically from request for surgery [id number] Right carpal tunnel syndrome 04/23/2021 Overview (04/23/2021): Added automatically from request for surgery [id number] Closed fracture of fourth cervical vertebra 01/10 Social History Tobacco Use Types Packs/Day Years Used Date Smoking Tobacco: Former Cigarettes 0.3 16 1 990 - 2005 Smokeless Tobacco: Never Tobacco Cessation:Counseling Given: Not [...] Sexual Orientation Lesbian 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 Vital Signs Vital Sign Reading [...] 01/23/2022 1:08 PM CDT Plan of Treatment Not on file Procedures Procedure Name Priority Date/Time Associated Diagnosis [...] Capillary blood 01/23/2022 4 :17 PM CDT [facility] Courtney Lopez MD POINT OF CARE TEST YOU SANDERS Final Result from Last 3 Months or Most Recently Relevant to Health Maintenance Insurance [facility] Care Teams Truck Sales Manager Relationship Specialty Start Date End Date Baltazar Hernandez MD [address] [place] [address] PCP - General Internal Medicine 03/20/21
--- OUTSIDE RECORDS SUMMARY | 2024-06-17 08:57 | XMS_ITS | Patient Health Summary ---
Author Organization [facility] Address [address] [place] [address] Care Team Providers Care Drier Belt Conveyor Name Role Phone Unavailable Primary Care Provider Unavailabl e Note from [facility],non-owned Affiliates and Associated Physician Practices is amultiple site organization consisting of ambulatory clinics and hospital sitesin [place], [place], [place] and [place]. This disclosure is being madepursuant to the Care Everywhere program and may not contain all information available regarding this patient. Last updated 17.[facility] Social History Tobacco Use Types Packs/Day Years Used Date Smoking Tobacco: Never Assessed Sex and Gender Information Value Date Recorded Sex Assigned at Not on file Gender Identity Not on file Sexual Orientation Not on file Procedures * CULTURE URINE(Performed 10/01/2013) * GROSS + MICRO EXAM(Performed 12/07/1998) Results * CULTURE URINE (10/01/2013 5:48 PM CDT) Culture Urine Less than 10,000 CFU/ML of Normal Fecal [facility] Comment:. Culture Urine Less than 10,000 CFU/ML of Normal Urogenital/ Skin [facility] Comment:. Urine specimen (specimen) URINE SPECIMEN OBTAINED BY CLEAN CATCH PROCEDURE / Unknown 10/01/2013 5:48 PM CDT 10/01/2013 9:23 PM CDT Narrative [facility] - 10/04/2013 9:04 AM CDT HerreraSpecimen#[id number] Herrera Loc/Rm/Bed: ED// CLN CATCH U @10/01/13 1802: URINE CULTURE added. RFLXG = UAUCC. Historical Provider LAB - MICROBIOLOG Y ORDERABLES [facility] [address] [phone] * GROSS + MICRO EXAM (12/07/1998 10:12 AM CDT) Result CASE NUMBER [id number] Comment: ORDERING PHYSICIAN JUAN MANUEL SLOAN SPECIMEN TYPE Intervertebral Disc-lumbar Date 12/07/1998 Physician Gross Description The specimen is received in a single formalin-filled container labeled with the patient's name and disc and consists of numerous fibrous white tissue fragments with focal areas of brown granular cautery artifact, all of which measure 3.5 x 2.7 x .7 cm. All tissue is wrapped and submitted entirely in one cassette. KIMBERLY/marinoc Microscopic Exam Sections of the intervertebral disc shows cartilaginous material displaying mild degeneration characterized by condensation of nuclei. No inflammation, malignancy is seen. JW/marino Diagnosis I. Intervertebral disc, lumbar, for clinical diagnosis of lumbar disc displacement. /[facility] Line Installer [facility] [place] Pathologist Cesar Almaraz M.D. Snomed. 12/09/1998 1230 <1> CPT code 57589/42476 MISCELLANEOUS SAMPLES / Unknown 12/07/1998 10:12 AM CDT 12/07/1998 10:12 AM CDT Historical Provider LAB - PATHOLOGY/C YTOLOGY ORDERABLES
--- OUTSIDE RECORDS SUMMARY | 2024-06-17 08:57 | XMS_ITS | Clinical Summary ---
Author Organization [facility] Address [address] [place] [address] Care Team Providers Care Broadcast News Producer Name Role Phone Unavailable Primary Care Provider Unavailabl e Source Comments [facility],non-owned Affiliates and Associated Physician Practices is amultiple site organization consisting of ambulatory clinics and hospital sitesin [place], [place], [place] and [place]. This disclosure is being madepursuant to the Care Everywhere program and may not contain all information available regarding this patient. Last updated 17.[facility] Social History Tobacco Use Types Packs/Day Years Used Date Smoking Tobacco: Never Assessed Sex and Gender Information Value Date Recorded Sex Assigned at Not on file Gender Identity Not on file Sexual Orientation Not on file Plan of Treatment Health Maintenance Due Date Last Done Comments COLOGUARD (AGES 45-75) - COL ON CA SCREENING 1973 COLON MONITORING 1973 COLONOSCOPY - COLON CA SCREENING 1973 CT COLONOGRAPHY - COLON CA SCREENING 1973 Colorectal Cancer Screening 1973 FIT - COLON CA SCREENING 1973 FLEX SIG - COLON CA SCREENING 1973 LIPID TESTING 1973 MAMMOGRAM 1973 PAP SMEAR 1973 HIV SCREENING 1988 HEPATITIS C SCREENING 06/25/1991 DTAP/TDAP/TD VACCINES (1 - Tdap) 1992 HEPATITIS B VACCINE (1 of 3 - 19+ 3-dose series) 1992 PNEUMOCOCCAL VACCINE 50+ (1 of 1 - PCV) 06/30/2023 ZOSTER VACCINE (1 of 2) 06/30/2023 COVID-19 VACCINE (1 - 2023-2 5 season) 2023 INFLUENZA VACCINE (#1) 2023 DEPRESSION SCREENING 04/12/2024 HIB VACCINE Aged Out No longer eligi ble based on patient's age to complete this topic HPV VACCINE Aged Out No longer eligi ble based on patient's age to complete this topic MENINGOCOCCAL (Group B) VACCINE Aged Out No longer eligible based on patient's age to complete this topic MENINGOCOCCAL VACCINE Aged Out No rambo marc eligible based on patient's age to complete this topic PNEUMOCOCCAL VACCINE Aged Out No long er eligible based on patient's age to complete this topic
--- OUTSIDE RECORDS SUMMARY | 2024-06-17 08:57 | XMS_ITS ---
Author Organization [facility] [employer] Address [address] [place] [address] Care Team Providers Care Linen Supply Load Builder Name Role Phone Nilam Molina Unavailable [phone] Migration, Provider Unavailable Unavailable Allergies Allergen (clinical drug ingredient) Drug/Non Drug Allergy documented on EMR Reaction Allergy Type Onset Date Status vancomycin Vancomycin Unknown Drug Allergy 06/28/2023 Acti ve REASON FOR VISIT EMR-Pasquale Medications Medication SIG (Take, Route, Frequency, Duration) Notes Start Date End Date Status BD ULTRA-FINE PEN NEEDLE 32 gauge x MISCELLANEOUS *Reorder from [facility] for eRx and Interaction Alerts* 06/28/2023 Active FREESTYLE JH 2 SENSOR KIT *Reorder from [facility] for eRx and Interaction Alerts* 06/28/2023 Active Venlafaxine HCl ER 150 MG Oral 06/28/2023 Active Lexapro 20 MG Oral 06/28/2023 Activ e Felodipine ER 5 mg Oral 06/28/2023 Active Mounjaro 10 MG/0.5ML Subcutaneous *[facility] and Interaction Alerts* 06/28/2023 Active busPIRone HCl 5 MG Oral 06/28/2023 Active Hydrocortisone 2.50% External 06/28/2023 Active Losartan Potassium 100 MG Oral 06/28/2023 Active Clobetasol Propionate 0.05 % External 06/28/2023 Active Ezetimibe 10 MG Oral 06/28/2023 Act sang Effexor XR 150 MG Oral 06/28/2023 A ctive Melatonin *Pick strength-form from [employer] for eRX* 06/28/2023 Active Escitalopram Oxalate 20 MG Oral 06/28/2023 Active busPIRone HCl 10 MG Oral 06/28/2023 Active hydroCHLOROthiazide 25 MG Oral 06/28/2023 Active Farxiga 10 MG Oral 06/28/2023 Activ e Ketoconazole 2% External 06/28/2023 Act sang Glimepiride 4 MG Oral 06/28/2023 Ac tive Social History Sex Assigned At : Social History Observation Description Sex Assigned At Female Encounters Encounter Location Date Provider Diagnosis [facility] [address] [facility] [address] [place] [address] 08/29/2023 Provider Migration Plan Of Treatment Next Appt Details Provider Name:Nilam Molina , 06/26/2024 08:15:00 AM, [address], [facility] [address], [place], [address], Progress Notes * CHRIS OLIVA ADOB: (48 yo F)Acc No.[id number]:08/29/2023 Patient: Edvin CHRIS ANDERSON :1975 A ge:48 Y S ex:Female Address:[address] [place], [address] Subjective: * Chief Complaints: * E MR-Pasquale * Medical History: * Game Programmer History: M igrated GYNHistory M igrated GYNHistory:: Abnormal Pap: N Modified Date:06/17/2020,Age at Menarche: 12 Modified Date:06/17/2020,Date of Last Mammogram: 04/22/2020 Modified Date:06/17/2020,Date of Last Pap Smear: 04/15/2020 Modified Date:06/17/2020,LMP: Unknown Modified Date:06/17/2020,Sexual Problems: N Modified Date:06/17/2020,Sexually Active: Y Modified Date:12/29/2021, . * Surgical History: O ther right hand 05/05/2021ny surgical history 2Other 09/15/2018Other left hand 12/01/2021 * Hospitalization/Major Diagno stic Procedure: * Family History: F ather: Diabetes mellitus , Malignant neoplastic disease . U nspecified Relation: History of attempted suicide . M other: Depressive disorder , Diabetes mellitus , Anxiety disorder . Paternal Grandmother: Diabetes mellitus . B rother: Alcohol abuse . S ister: Hypothyroidism . * Social History: M igrated Social History: M igrated Social History: Alcohol Intake: None 07/25/2018,Tobacco Years: Former smoker 01/24/2018,Smoking Status: 5 12/28/2022. * Medications: T akingMounjaro 10 MG/0.5ML Solution Pen-injector Subcutaneous , Notes to Pharmacist: *Reorder from [facility] for eRx and Interaction Alerts*Glimepiride 4 MG Tablet Oral hydroCHLOROthiazide 25 MG Tablet Oral Hydrocortisone 2.50% Cream External Losartan Potassium 100 MG Tablet Oral Clobetasol Propionate 0.05 % Ointment External busPIRone HCl 10 MG Tablet Oral Escitalopram Oxalate 20 MG Tablet Oral Ketoconazole 2% Cream External Farxiga 10 MG Tablet Oral BD ULTRA-FINE PEN NEEDLE 32 gauge x 5/32 NEEDLE, DISPOSABLE MISCELLANEOUS , Notes to Pharmacist: *Reorder from [facility] for eRx and Interaction Alerts*FREESTYLE JH 2 SENSOR KIT , Notes to Pharmacist: *Reorder from [facility] for eRx and Interaction Alerts*busPIRone HCl 5 MG Tablet Oral Lexapro 20 MG Tablet Oral Felodipine ER 5 mg Tablet Extended Release 24 Hour Oral Venlafaxine HCl ER 150 MG Capsule Extended Release 24 Hour Oral Ezetimibe 10 MG Tablet Oral Effexor XR 150 MG Capsule Extended Release 24 Hour Oral Melatonin , Notes to Pharmacist: *Pick strength-form from [facility] for eRX*Taking Mounjaro 10 MG/0.5ML Solution Pen-injector Subcutaneous , Notes to Pharmacist: *Reorder from [facility] for eRx and Interaction Alerts*Taking Glimepiride 4 MG Tablet Oral Taking hydroCHLOROthiazide 25 MG Tablet Oral Taking Hydrocortisone 2.50% Cream External Taking Losartan Potassium 100 MG Tablet Oral Taking Clobetasol Propionate 0.05 % Ointment External Taking busPIRone HCl 10 MG Tablet Oral Taking Escitalopram Oxalate 20 MG Tablet Oral Taking Ketoconazole 2% Cream External Taking Farxiga 10 MG Tablet Oral Taking BD ULTRA- FINE PEN NEEDLE 32 gauge x 5/32 NEEDLE, DISPOSABLE MISCELLANEOUS , Notes to Pharmacist: *Reorder from [facility] for eRx and Interaction Alerts*Taking FREESTYLE JH 2 SENSOR KIT , Notes to Pharmacist: *Reorder from [facility] for eRx and Interaction Alerts*Taking busPIRone HCl 5 MG Tablet Oral Taking Lexapro 20 MG Tablet Oral Taking Felodipine ER 5 mg Tablet Extended Release 24 Hour Oral Taking Venlafaxine HCl ER 150 MG Capsule Extended Release 24 Hour Oral Taking Ezetimibe 10 MG Tablet Oral Taking Effexor XR 150 MG Capsule Extended Release 24 Hour Oral Taking Melatonin , Notes to Pharmacist: *Pick strength-form from [facility] for eRX* * Allergies: V ancomycin: Allergy - Onset Date 06/28/2023 Objective: * Vitals: * Physical Examination: Assessment: Plan: * Treatment: * Procedure Codes: * true * Date: Generated for Gab crane/Tim/Williamsitting on: 0 06/17/2024 08:57 AM SUPERINTENDENT LAUNDRY
--- OUTSIDE RECORDS SUMMARY | 2024-06-17 08:57 | XMS_ITS | Continuity of Care Document ---
Author Organization [facility] Address [address] [facility] [address] [place] [address] Phone Care Team Providers Care Filter Cleaner Name Role Phone Norbert Talavera MD Unavailable Unavailable Allergies, Adverse Reactions, Alerts Substance Reaction Status Criticality vancomycin swelling Active No Information Medications Medication Instructions Dosage Effective Dates (start - stop) Status Comments felodipine ER 5 mg tablet,extended release 24 hr - Active losartan 100 mg-hydrochlorothiazide 25 mg tablet - Active metformin 500 mg tablet - Active Trulicity 0.75 mg/0.5 mL subcutaneous pen injector - Active venlafaxine ER 150 mg capsule,extended release 24 hr - Active WelChol 625 mg tablet - Active Procedures Procedure Date OFFICE/OUTPATIENT VISIT [facility] OFFICE/OUTPATIENT VISIT [facility] Advance Directives Directive Yes / No Effective Date File Name No Information Encounters Encounter Description Practice Location Reason(s) For Visit Diagnoses Date Provider Providers Copied on Encounter OFFICE/OUTPAT IENT VISIT [facility], [address] [place] [address], [address], [place] tel:[phone] [facility] Follow Up of L knee-MRI results (chief complaint) Acute pain of left knee 6 Ilan Toussaint. [address], [place], [place], [id number] . tel: [phone] OFFICE/OUTPAT IENT VISIT [facility], [address] [facility] [address], [place], [address], [place] tel:[phone] [facility] [place] left knee subluxation /dislocatio n (chief complaint) Acute pain of left knee 6 Ilan Toussaint. [address], [place], [place], [address] . tel: [phone] Family History Family Member Type Diagnosis Age At Onset Father Problem (finding) Maternal history of debbie betes mellitus 55 Payers Payer name Insurance type Covered libertarian ID Chen farley(s) Blue Access Choice PPO [id number] Social History Type Description Quantity Date Captured [...]
--- OUTSIDE RECORDS SUMMARY | 2024-06-17 08:57 | XMS_ITS | Continuity of Care Document ---
Author Organization [facility] Address [address] [place] [address] [facility] [address] [place] [address] Phone Care Team Providers Care Hand Crocheter Name Role Phone Luis Miguel Gudino Unavailable Unavailable Procedures Procedure Date Office/outpatient Visit, Est Eye Exam & Treatment Advance Directives Directive Yes / No Effective Date File Name No Information Encounters Encounter Description Practice Location Reason(s) For Visit Diagnoses Date Provider Providers Copied on Encounter Office/outpa tient Visit, Est [facility], [address], [place], [place], [id number], [place] tel:[phone] [facility] No Information 5-200 8 Vidalcatherinerobert Bolanos. [address] [facility] [facility] [address], [address], [place]. tel:[phone] [facility], [address] [place] [address] [address], [place], [place], [address], [place] tel:[phone] [facility] No Information 8-200 7 Wankgricelda Delgado. [address] [facility], [place], [place], [address], [place]. tel:[phone] Referring Provider: Riki Phillips MD, [address], [address]. tel:[phone] Family History Family Member Type Diagnosis Age [...]
--- OUTSIDE RECORDS SUMMARY | 2024-06-17 08:57 | XMS_ITS | Encounter Summary ---
Author Organization [facility] Address [address] [place] [address] Care Team Providers Care Urban Planner Name Role Phone Malathi Mackay Primary Care Provider [phone] Encounter Details Date Type Department Care Team (Late st Contact Info) Description 04/26/2020 Lyks Message Enc [facility] Family & Internal Medicine [facility] [address] [place] [address] [facility], [facility] Provider Pap smear result Social History Tobacco Use Types Packs/Day Years Used Date Smoking Tobacco: Former Cigarettes Q uit: 04/12/2001 Smokeless Tobacco: Never Alcohol Use Standard Drinks/Week Comments Not Currently 0 (1 standard drink = 0.6 oz pur e alcohol) PHQ-2 Answer Date Recorded PHQ-2 Score - If the patient scores above 3, please move on to questions 3-9 0 04/17/2020 Comments No Sex and Gender Information Value Date Recorded Sex Assigned at Not on file Legal Sex Female 12:54 PM FISH 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 No / Unsure 04/17/2020 7:34 AM FISH AND WILDLIFE BIOLOGIST documented as of this encounter Plan of Treatment Not on file documented as of this encounter Visit Diagnoses Not on filedocumented in this encounter Care Teams Urban Planner Relationship Specialty Start Date End Date Malathi Mackay [place] [id number] [place] [address] PCP - General PHYSICIAN BANK BOSS 04/08/20 documented as of this encounter
--- OUTSIDE RECORDS SUMMARY | 2024-06-17 08:57 | XMS_ITS | Clinical Summary ---
Author Organization [facility] Address [address] [place] [address] Care Team Providers Care Title One Reading Teacher Name Role Phone Malathi Mackay Primary Care Provider [phone] Allergies Active Allergy Reactions Criticality Noted Date Comments Vancomycin Swelling Medium 04/17/2020 Medications busPIRone 5 MG tablet Take 5 mg by mouth 2 (two) times daily. Active escitalopram 20 MG tablet Take 20 mg by mouth daily. Active ezetimibe 10 MG tablet Take 10 mg by mouth daily. Active felodipine ER 10 MG TABLET SR 24 HR 24 hr tablet Take 1 tablet by mouth daily. Active glimepiride 4 MG tablet Take 4 mg by mouth every morning before breakfast. Active hydroCHLOROthia zide 25 MG tablet Take 25 mg by mouth every morning. Active losartan 100 MG tablet Take 100 mg by mouth daily. Active metFORMIN 1000 MG tablet Take 1,000 mg by mouth 2 (two) times daily with meals. Active Insulin Glargine, 2 Unit Dial, (TOUJEO MAX SOLOSTAR) 300 UNIT/ML Solution Pen-injector Active Dulaglutide (TRULICITY) 1.5 MG/0.5ML Solution Pen-injector Active venlafaxine XR 150 MG 24 hr capsule Take 150 mg by mouth daily. Active Active Problems No known active problems Immunizations Name Administration Dates Next Due Influenza Adult (Generic) 02/21/2020 Family History Medical History Relation Comments Cancer Brother 1 prostate Alcohol Abuse Brother 2 Cirrhosis of the Liver Brother 2 Depression Brother 2 Early Brother 2 Diabetes Father type 2 Hyperlipidemia Father Hypertension Father Cancer Maternal Grandfather prostate Asthma Maternal Grandmother Dementia Maternal Grandmother Heart Disease Mother Lymphoma Mother Early Paternal Aunt Diabetes Paternal Grandfather Heart Attack Paternal Grandfather Heart Disease Paternal Grandfather Stroke Paternal Grandfather Diabetes Paternal Grandmother Heart Disease Paternal Grandmother Allergies Sister Anxiety Sister Asthma Sister Depression Sister Relation Status Comments Brother 1 Alive Brother 2 Father Alive Maternal Grandfather Maternal Grandmother Mother Alive Paternal Aunt Paternal Grandfather Paternal Grandmother Sister Alive Social History Tobacco Use Types Packs/Day Years [...] on file Legal Sex Female 12:54 PM REAL ESTATE PARALEGAL Gender Identity Not on file Sexual Orientation Not on file Last Filed Vital Signs Vital Sign Reading Time Taken Comments Blood Pressure 138/80 04/17/2020 7:52 AM REAL ESTATE PARALEGAL Pulse 86 04/17/2020 7:52 AM REAL ESTATE PARALEGAL Temperature 36.2 C (97.2 F) 04/17/2020 7:52 AM REAL ESTATE PARALEGAL Respiratory Rate 18 04/17/2020 7:52 AM REAL ESTATE PARALEGAL Oxygen Saturation 98% 04/17/2020 7:52 AM REAL ESTATE PARALEGAL Inhaled Oxygen Concentration - - Weight 138.9 kg (306 lb 3.2 oz) 04/17/2020 7:52 AM REAL ESTATE PARALEGAL Height 188 cm (6' 2 ) 04/17/2020 7:52 AM REAL ESTATE PARALEGAL Body Mass Index 39.31 04/17/2020 7:52 AM REAL ESTATE PARALEGAL Plan of Treatment Health Maintenance Due Date Last Done Comments Colorectal Cancer Screening Colonoscopy (10 Years) 1975 Hepatitis C 06/30/1991 Hepatitis B Vaccines (1 of 3 - 19+ 3-dose series) 1992 Cervical Cancer Screening Pa p with HPV Testing (Age 30 to 64) Every 5 Years 06/30/2003 Annual Physical 04/17/2021 04/17/2020, 04/17/2020 Mammogram Screening 05/08/2022 05/08/2020 Cervical Cancer Screening Pa p Smear (Age 30 to 64) Every 3 Years 04/17/2023 04/17/2020 Cervical Cancer Screening with HPV 04/17/2023 Zoster Vaccines (1 of 2) 06/30/2023 COVID-19 Vaccine (3 - 2023-2 5 season) 2023 07/04/2020, 06/13/2020 Influenza Adult (#1) 2024 02/21/2020 DTaP, Tdap and Td Vaccines ( 1 - Tdap) 04/17/2028 05/02/2018 Postponed from 05/03 (Patient Refused) Meningococcal B Vaccine Aged Out No l onger eligible based on patient's age to complete this topic Meningococcal Vaccine Aged Out No rambo marc eligible based on patient's age to complete this topic Pneumococcal Vaccine: Pediatrics (0 to 5 Years) and At-Risk Patients (6 to 64 Years) Aged Out No longer eligible b ased on patient's age to complete this topic RSV Immunizations Under 20 Months Aged Out No longer eligible b ased on patient's age to complete this topic Procedures Procedure Name Priority Date/Time Associated Diagnosis Comments MG SCREENING W VINNY TROY DIGI Routine 05/08/2020 8:42 AM REAL ESTATE PARALEGAL Breast cancer screening by mammogram OUTSIDE CYTOPATH CERV/VAG INTERPRET (PAP) (SCAN ORDER) 04/17/2020 from Last 3 Months or Most Recently Relevant to Health Maintenance Results * MG SCREENING W VINNY TROY DIGI (05/08/2020 8:42 AM REAL ESTATE PARALEGAL) Anatomical Region Laterality Modality Breast Bilateral Mammography 05/10/2020 3:26 PM REAL ESTATE PARALEGAL Narrative 05/10/2020 3:27 PM REAL ESTATE PARALEGAL IMAGING STUDIES: MG SCREENING W VINNY TROY DIGI DATE: 05/08/2020 8:30 AM INDICATION: screening. COMPARISON: 11/22/2017, 11/04/2011. FINDINGS: Bilateral CC and MLO views, digital with CAD. 2-D with 3-D tomosynthesis. Breast compostition: Category B - There are areas of scattered fibroglandular density. No suspicious microcalcification, worrisome mass or evidence of architectural distortion. No skin thickening or nipple retraction. Benign microcalcifications. CONCLUSION: No mammographic evidence of malignancy. BI-RADS Category 2 - benign findings. Routine screening mammography recommended MQSA BI-RADS Categories: Category 0 - needs additional imaging evaluation. Category 1 - negative. Category 2 - benign findings. Category 3 - probably benign findings, but short interval follow-up is recommended. Category 4 - suspicious abnormality and biopsy should be considered though the lesion may well be benign. Category 5 - highly suggestive of malignancy and appropriate action should be taken. A) A negative report should not delay a biopsy if a dominant or clinically suspicious mass is present. B) Adenosis and dense breasts may obscure an underlying neoplasm. C) Study interpreted with computer aided detection. Interpreted By: Riki Denton, 05/10/2020 3:26 PM Malathi DE DIOS MAMMO Final Result * OUTSIDE CYTOPATH CERV/VAG INTERPRET (PAP) (04/17/2020) 04/17/2020 Narrative 04/17/2020 Ordered by an unspecified provider. us Documents Scanned SCANNING Final Result from Last 3 Months or Most Recently Relevant to Health Maintenance Insurance [facility] Care Teams Title One Reading Teacher Relationship Specialty Start Date End Date Malathi Mackay, LAN[place] [address] [place] [address] PCP - General PHYSICIAN SUBSTANCE ABUSE NURSE 04/08/20
--- OUTSIDE RECORDS SUMMARY | 2024-06-17 08:58 | XMS_ITS ---
Author Organization [facility] Address [address] [facility] [address] [facility] [address] [place] [address] Care Team Providers Care Internal Medicine Doctor Name Role Phone Nilam Molina Unavailable [phone] Migration, Provider Unavailable Unavailable REASON FOR VISIT [facility] Social History Sex Assigned At : Social History Observation Description Sex Assigned At Female Encounters Encounter Location Date Provider Diagnosis [facility] [employer] [place] [id number] [facility] [address] [address] 08/28/2023 Provider Migration Plan Of Treatment Next Appt Details Provider Name:Nilam Molina , 06/26/2024 08:15:00 AM, [address], [facility] [address], [place], [address], Progress Notes * CHRIS OLIVA ADOB: (48 yo F)Acc No.[id number]:08/28/2023 Patient: Edvin MENDOZACHRIS DECKER Edvin :1975 A ge:48 Y S ex:Female Address:[address] [place], [address] Subjective: * Chief Complaints: * E MR-Pasquale * Medical History: * Surgical History: * Hospitalization/Major Diagno stic Procedure: * Medications: Objective: * Vitals: * Physical Examination: Assessment: Plan: * Treatment: * Procedure Codes: * true * Date: Generated for Printi ng/Faxing/eTransmitting on: 0 06/17/2024 08:57 AM CONSTRUCTION TEACHER
[2024-06-17 09:56] LABS: Hematocrit 44.8 % (37.0-47.0); Hemoglobin 14.1 g/dL (12.0-15.0); Mean Corpuscular HGB Conc 31.5 g/dl (32-36); Mean Corpuscular Hemoglobin 27.1 pg (26-34); Mean Platelet Volume 7.9 fl (7.4-10.4); Platelet Count Result 413 k/mm3 (150-375); Red Blood Count 5.21 M/mm3 (4.2-5.4); Red Cell Distribution Width 14.6 % (11.5-14.5)
[2024-06-17 10:33] LABS: Alanine Aminotransferase 19 U/L (6-35); Albumin Level 4.3 g/dL (3.5-5.1); Alkaline Phosphatase 97 U/L (38-126); Anion Gap 8 mmol/L (4-12); Aspartate Amino Transferase 26 U/L (14-36); Bilirubin,Total 0.5 mg/dL (0.2-1.3); Blood Urea Nitrogen 17 mg/dL (7-17); Calcium 9.5 mg/dL (8.4-10.2); Carbon Dioxide 31 mmol/L (22-30); Chloride 100 mmol/L (98-107); Cholesterol 151 mg/dL (0-200); Estimated Glomerular Filt Rate > 60; Glucose 155 mg/dL (65-110); HDL Direct 41 mg/dL; LDL Cholesterol Direct 84 mg/dL; Sodium 139 mmol/L (137-145); Triglycerides 101 mg/dL (<150)
[2024-06-17 10:46] LABS: Thyroid Stimulating Hormone 0.235 uIU/mL (0.465-4.680)
[2024-06-17 10:51] LABS: Vitamin D 25 Hydroxy 35.1 ng/mL
== END 2024-06-17 08:55 | disposition home or self-care (01) ==
LOC: ANHLAB 08:55
PROVIDERS: PCP Family Medicine; Visit Provider Family Medicine
DX: F41.9 Anxiety disorder, unspecified (principal); I10 Essential (primary) hypertension; E11.65 Type 2 diabetes mellitus with hyperglycemia; Z79.4 Long term (current) use of insulin; Z00.00 Encounter for general adult medical examination without abnormal findings; E66.9 Obesity, unspecified; D64.9 Anemia, unspecified; R53.83 Other fatigue; G47.33 Obstructive sleep apnea (adult) (pediatric); G47.00 Insomnia, unspecified
CPT/HCPCS: 36415; 80053; 80061; 82306; 82607; 84443; 85027

== ENCOUNTER 2024-07-12 23:00 | Emergency (ER) | payer BC, SELFPAY ==
--- NOTE | ~2024-07-12 | XR_ITS ---
HISTORY: twistng injury, felt hip pop COMPARISON: None TECHNIQUE: 2 views of the right hip along with an AP view of the pelvis FINDINGS: No acute fracture or dislocation is identified. Superior lateral sclerosis of the femoral acetabular joint space is present consistent with osteoarth ritis. Degenerative disease within the visualized portion of the lower lumbar spine. Fecal stasis within the colon. Air within the rectum. Age-appropriate mineralization. IMPRESSION: Degenerative disease, without acute fracture or dislocation. Reviewed, dictated and finalized at location A.
[2024-07-12 23:00] VITALS: BP 139/64; PULSE 80; RESP 17; TEMP 36.8; O2SAT 100
--- NOTE | 2024-07-12 23:16 | ED_ITS ---
HPI - Extremity Injury (Lower) General Chief Complaint: Extremity Injury, Lower Stated Complaint: R HIP PAIN Time Seen by Provider: 07/12/24 23:05 History of Present Illness HPI Narrative: 49-year-old female with no significant past medical history presenting to the emergency department with right hip pain after twisting while trying to get her pants off to go to bed. She felt a loud pop and some crepitus and fell to her bed. EMS called and patient was administered 100 mcg of fentanyl EN route with improvement. Patient denies any weakness or numbness in the extremity. No history of orthopedic surgeries in that hip or knee. She has a history of laminectomy in the lumbar region but this is not the area that she is in pain from. No loss of continence. No other trauma. She was otherwise in her normal state of health. Related Data Home Medications ?Medication ?Instructions ?Recorded ?Confirmed ?Last Taken ?Type escitalopram oxalate 20 mg tablet 20 mg PO DAILY 03/16/19 07/12/24 Unknown History multivitamin (Multiple Vitamins 1 tablet PO DAILY 03/16/19 07/12/24 Unknown History tablet) venlafaxine 150 mg 150 mg PO DAILY 03/16/19 07/12/24 Unknown History capsule,extended release 24 hr hydrocortisone 2.5 % topical cream g topical 02/16/22 07/12/24 Unknown History ketoconazole 2 % topical cream g topical 02/16/22 07/12/24 Unknown History buspirone 5 mg tablet 10 mg PO ONCE 07/07/23 07/12/24 Unknown History aripiprazole 5 mg tablet (Abilify) 5 mg PO DAILY 07/12/24 07/12/24 Unknown History Allergies Allergy/AdvReac Type Severity Reaction Status Date / Time Penicillins Allergy Intermediate Rash Verified 07/12/24 23:21 Sulfa (Sulfonamide Allergy Intermediate Rash Verified 07/12/24 23:21 Antibiotics) vancomycin Allergy Mild Hives Verified 07/12/24 23:21 Review of Systems Review of Systems: As reviewed above in HPI REPLACED BY [facility] Past Medical History Medical History Headache Peripheral neuropathy Obesity, Class III, BMI 40-49.9 (morbid obesity) MACARENA (obstructive sleep apnea) Insomnia Anemia Bilateral hand numbness Bilateral knee pain Hypertension Type 2 diabetes mellitus with hyperglycemia Anxiety Hyperlipidemia Surgical History Surgical History Previous back surgery x2 History of surgery on wrist 05/05/21, carpal tunnel right Family History Family History Other Asthma Cerebrovascular accident Depression Diabetes mellitus Family history of alcoholism Family history of lymphoma Family history of thyroid disease Heart problem Hypertension Malignant neoplasm of prostate Social History Social History Smoking packs per day: 0.5 Smoking cigarettes per day: 10.0 Years smoked: 10 Smoking pack-years: 5.00 Smoking status: Former smoker Additional smoking assessment comments: Quit a long time ago 20+ years ago. Alcohol intake: never Substance use: never Lack of Transportation: No Lack of Food: Never True Current Housing: I Have Housing Concerned About Future Housing: No Difficulty Paying Gas/Electric Bills: No Difficulty Paying for Meds: No Currently Unemployed: No Education: High School Diploma/GED Difficulty w/ Childcare or Family Care: No Exam Narrative: GENERAL: Morbidly obese, not in any distress HEAD: [Normocephalic, atraumatic.] EYES: [PERRLA and EOMI.] ENT: Nares clear, no rhinorrhea or epistaxis. Mucous membranes moist. NECK: Supple. CHEST: [Clear to auscultation. No respiratory distress.] HEART: [Regular rate and rhythm]. No murmur heard. [Normal peripheral pulses.] ABDOMEN: [Soft, nondistended], [nontender], [No rigidity or guarding] EXTREMITIES: Normal range of motion. [No edema.] Able to hold extensor mechanism of bilateral lower extremities, EHL and FHL 5/5 strength. Tenderness to palpation over the lateral aspect of the right hip posteriorly but no step- offs deformities. No overlying skin changes. No crepitus with manipulation of the hip or knee. Pain in the right hip with flexion of the hip but internal and external rotation without any any pain. SKIN: Warm, dry, no rash. NEURO: [No focal deficits]. Alert and oriented [x3.] PSYCH: [Normal mood and affect.] Course Vital Signs Vital signs: Vital Signs Temperature 36.8 C 07/12/24 23:00 Pulse Rate 80 07/12/24 23:00 Respiratory Rate 17 07/12/24 23:00 Blood Pressure 139/64 07/12/24 23:00 Pulse Oximetry 100 07/12/24 23:00 Oxygen Delivery Room Air 07/12/24 23:00 Temperature 36.8 C 07/12/24 23:27 Pulse Rate 80 07/12/24 23:27 Respiratory Rate 17 07/12/24 23:27 Blood Pressure 139/64 07/12/24 23:27 Pulse Oximetry 100 07/12/24 23:27 Oxygen Delivery Room Air 07/12/24 23:00 MDM - Extremity Injury (Lower) MDM Narrative Medical decision making narrative: 49-year-old female presenting with right hip pain after twisting while trying to get her pants off to go to bed. She heard a loud pop and felt some crepitus in her right hip. No orthopedic history on that side. She has a history of lumbar laminectomy for bulging discs. No midline back pain, no back pain radiating down the leg. Was administered fentanyl EN route for significant pain with resolution. Patient is comfortable without any pain at this time. Normal vital signs, 2+ dorsalis pedis pulse, warm extremity. She has a positive straight leg raise on that side causing hip pain but otherwise able to hold extensor mechanism intact, distal neuro vasculature is intact, no bony tenderness in the knee or ankle. Some tenderness over the lateral posterior aspect of the right hip without any crepitus or deformity. Multiple views of the right hip and pelvis were obtained. Patient politely declined any additional analgesia at this time. Suspicion presently is for musculoskeletal hip pain, low suspicion for fracture dislocation/relocation. Low suspicion for any lumbar pathology and she has no red flag signs for neurological insult. Patient's x-rays were independently reviewed and there is no acute osseous injury. She was given morphine for analgesia and ambulated. Patient successfully ambulated albeit slow from some discomfort but is safe for discharge at this time will be given pain control medications as needed and follow-up instructions. Medical Records Attestation: I reviewed the patient's medical records. Imaging Data Attestation: I personally reviewed and interpreted this imaging study as follows: My impression: Impressions Hip/Pelvis X-Ray 07/12/24 23:36 IMPRESSION: Degenerative disease, without acute fracture or dislocation. Discharge Plan Discharge Clinical Impression: Acute hip pain, Osteoarthritis Patient Disposition: Home, Self-Care Condition: Stable Instructions: Antibiotic Form Additional Instructions: Your x-rays are reassuring, no broken or dislocated bones. You likely pulled a muscle around her hip joint and we will send you home with some anti- inflammatory medications and pain medications as needed. If this is a persistent concern after several days of treatments follow-up with regular doctor. You can apply ice up to 20 minutes at a time to the area that is mostly painful and then you can introduce heat in approximately 48 hours. Patient Language: Turkmen Prescriptions: New acetaminophen [Tylenol Extra Strength] 500 mg tablet 1,000 mg PO TID PRN (Reason: pain) Qty: 30 0RF ketorolac 10 mg tablet 10 mg PO Q8H PRN (Reason: pain) 5 Days Qty: 20 0RF Rx Instructions: maximum total duration of 5 days from all oral, intranasal, or parenteral formulations methocarbamol 750 mg tablet 750 mg PO TID PRN (Reason: pain) Qty: 20 0RF lidocaine 5 % adhesive patch,medicated 1 patch topical DAILY Qty: 15 0RF Rx Instructions: leave on most painful area for up to 12 hrs No Action buspirone 5 mg tablet 10 mg PO ONCE aripiprazole [Abilify] 5 mg tablet 5 mg PO DAILY multivitamin [Multiple Vitamins] Tablet 1 tablet PO DAILY venlafaxine 150 mg capsule,extended release 24hr 150 mg PO DAILY escitalopram oxalate 20 mg tablet 20 mg PO DAILY hydrocortisone 2.5 % cream topical ketoconazole 2 % cream topical (DME) Dexcom G7 Hospice Registered Nurse Misc See Rx Instructions .ROUTE .MEDSUPPLY Qty: 1 0RF Rx Instructions: Will use smartphone Humulin R U-500 (Conc) Kwikpen 500 unit/mL (3 mL) insulin pen 200 unit subcut DAILY Qty: 36 3RF Rx Instructions: Take 100 units before breakfast, 50 units before lunch, 50 units before Farxiga 10 mg tablet 10 mg PO DAILY Qty: 90 3RF Gvoke HypoPen 2-Pack 1 mg/0.2 mL auto-injector 1 mg subcut ONCE Qty: 0.4 4RF Rx Instructions: may repeat once after 15 minutes if no response ezetimibe [Zetia] 10 mg tablet 10 mg PO DAILY Qty: 90 3RF hydrochlorothiazide 25 mg tablet See Rx Instructions .ROUTE .COMPLEX Qty: 90 1RF Dose Instruction: TAKE 1 TABLET BY MOUTH DAILY Rx Instructions: TAKE 1 TABLET BY MOUTH DAILY Mounjaro 15 mg/0.5 mL pen injector 15 mg subcut WEEKLY Qty: 2 5RF losartan 100 mg tablet 100 mg PO DAILY Qty: 90 3RF felodipine 5 mg tablet extended release 24 hr 5 mg PO DAILY Qty: 90 2RF (DME) Dexcom G7 Sensor Device See Rx Instructions .ROUTE .MEDSUPPLY Qty: 9 3RF Rx Instructions: Use to monitor glcuose hydroxyzine HCl 50 mg tablet 50 mg PO QHS PRN (Reason: insomnia) Qty: 30 0RF (DME) pen needle, diabetic 32 gauge x /32 needle See Rx Instructions .ROUTE .MEDSUPPLY Qty: 400 3RF Rx Instructions: Use with insulin, 4 shots daily Follow-up/Referrals: Alvaro Parker MD [Primary Care Provider] - Time of Disposition: 00:33
--- OUTSIDE RECORDS SUMMARY | 2024-07-12 23:16 | XMS_ITS | Clinical Summary ---
Author Organization [facility] Address [address] [place] [address] Care Team Providers Care Parent Trainer Name Role Phone Baltazar Hernandez MD Primary Care Provider [phone] Allergies Active Allergy Reactions Criticality Noted Date [...] tabletIndications :hypertension Take 25 mg by mouth striker off before breakfast Active insulin glargine (TOUJEO MAX) [...] (11/03/2021): Added automatically from request for surgery [id number] Right carpal tunnel syndrome 04/23/2021 Overview (04/23/2021): Added automatically from request for surgery [id number] Closed fracture of fourth cervical vertebra 01/10 [...] Sexual Orientation Lesbian 04/21/2021 4: 52 PM 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
--- OUTSIDE RECORDS SUMMARY | 2024-07-12 23:16 | XMS_ITS | Clinical Summary ---
Author Organization [facility] Address [address] [place] [address] Care Team Providers Care Toys Inspector Name Role Phone Unavailable Primary Care Provider Unavailabl e Source Comments [facility],non-owned Affiliates and Associated Physician Practices is amultiple site organization consisting of ambulatory clinics and hospital sitesin [place], [place], [place] and [place]. This disclosure is being madepursuant to the Care Everywhere program and may not contain all information available regarding this patient. Last updated 17.[facility] Social History Tobacco Use Types Packs/Day Years [...] VACCINE (1 of 2) 06/30/2023 COVID-19 VACCINE ( - 2023-2 5 season) 2023 DEPRESSION SCREENING 04/12/2024 INFLUENZA VACCINE (Season Ended) 2024 HIB VACCINE Aged Out No longer eligi ble based on patient's age to complete this topic HPV VACCINE Aged Out No longer eligi ble based on patient's age to complete this topic MENINGOCOCCAL (Group B) VACC INE SHARED DECISION-MAKING Aged Out No longer eligibl e based on patient's age to complete this topic MENINGOCOCCAL GROUPS A/C/Y/W VACCINE Aged Out No longer eligible b ased on patient's age to complete this topic PNEUMOCOCCAL VACCINE Aged Out No long er eligible based on patient's age to complete this topic
--- OUTSIDE RECORDS SUMMARY | 2024-07-12 23:16 | XMS_ITS | Clinical Summary ---
Author Organization [facility] Address [address] [place] [address] Care Team Providers Care Adjunct Lecturer Name Role Phone Malathi Mackay Primary Care Provider + [phone] Allergies Active Allergy Reactions Criticality Noted Date [...] on file Legal Sex Female 12:54 PM GARAGE WORKER Gender Identity Not on file Sexual Orientation Not on file Last Filed Vital Signs Vital Sign Reading Time Taken Comments Blood Pressure 138/80 04/17/2020 7:52 AM GARAGE WORKER Pulse 86 04/17/2020 7:52 AM GARAGE WORKER Temperature 36.2 C (97.2 F) 04/17/2020 7:52 AM GARAGE WORKER Respiratory Rate 18 04/17/2020 7:52 AM GARAGE WORKER Oxygen Saturation 98% 04/17/2020 7:52 AM GARAGE WORKER Inhaled Oxygen Concentration - - Weight 138.9 kg (306 lb 3.2 oz) 04/17/2020 7:52 AM GARAGE WORKER Height 188 cm (6' 2 ) 04/17/2020 7:52 AM GARAGE WORKER Body Mass Index 39.31 04/17/2020 7:52 AM GARAGE WORKER Plan of Treatment Health Maintenance Due Date [...] - 2023-2 5 season) 2023 07/04/2020, 06/13/2020 DTaP, Tdap and Td Vaccines ( 1 [...] VINNY TROY DIGI Routine 05/08/2020 8:42 AM GARAGE WORKER Breast cancer screening by mammogram OUTSIDE CYTOPATH CERV/VAG INTERPRET (PAP) (SCAN ORDER) 04/17/2020 from Last 3 Months or Most Recently Relevant to Health Maintenance Results * MG SCREENING W VINNY TROY DIGI (05/08/2020 8:42 AM GARAGE WORKER) Anatomical Region Laterality Modality Breast Bilateral Mammography 05/10/2020 3:26 PM GARAGE WORKER Narrative 05/10/2020 3:27 PM GARAGE WORKER IMAGING STUDIES: MG SCREENING W VINNY TROY [...] Most Recently Relevant to Health Maintenance Insurance [facility] Care Teams Adjunct Lecturer Relationship Specialty [place] [address] [place] [address] PCP - General PHYSICIAN PURSE FRAMER 04/08/20
--- OUTSIDE RECORDS SUMMARY | 2024-07-12 23:16 | XMS_ITS | Continuity of Care Document ---
Author Organization [facility] Address [address] [place] [address] [facility] [address] [place] [address] Phone Care Team Providers Care Autocutter Name Role Phone Luis Miguel Gudino Unavailable Unavailable Procedures Procedure Date Office/outpatient Visit, Est Eye Exam & Treatment Advance Directives Directive Yes / No Effective Date File Name No Information Encounters Encounter Description Practice Location Reason(s) For Visit Diagnoses Date Provider Providers Copied on Encounter Office/outpa tient Visit, Est [facility], [address], [place], [place], [id number], [place] tel:[phone] [facility] No Information 5-200 8 Vidalcatherinerobert Bolanos. [address] [facility] [address], [place], [address], [place]. tel:[phone] [facility], [address] [place] [address] [address], [place], [place], [id number], [place] tel:[phone] [facility] No Information 8-200 7 Wankgricelda Delgado. [address] [facility], [place], [place], [address], [place]. tel:[phone] Referring Provider: Riki Phillips MD, [address], [address]. tel:[phone] Family History Family Member Type Diagnosis Age At Onset No Information Payers Payer name Insurance type Covered democrat ID Authoriza tion(s) No Information Social History [...]
--- OUTSIDE RECORDS SUMMARY | 2024-07-12 23:16 | XMS_ITS ---
Author Organization [facility] Address [address] [place] [address] Care Team Providers Care Coal Equipment Operator Name Role Phone Alvaro Parker MD Primary Care Provider Nilam Manzo Unavailable [phone] Allergies Allergen (clinical drug ingredient) Drug/Non Drug Allergy documented on EMR Reaction Allergy Type Onset Date Status vancomycin Vancomycin Unknown Drug Allergy 06/28/2023 Acti ve REASON FOR VISIT f/u depression and anxiety Medications Medication SIG (Take, Route, Frequency, Duration) Notes Start Date End Date Status Hydrocortisone 2.50% External 06/28/2023 Active Losartan Potassium 100 MG Oral 06/28/2023 Active hydroCHLOROthiazide 25 MG Oral 06/28/2023 Active busPIRone HCl 10 MG 1 tablet Oral Once a day for 90 days Active Venlafaxine HCl ER 150 MG 1 capsule ever y motning Oral Once a day for 90 days Active Glimepiride 4 MG Oral 06/28/2023 Ac tive Melatonin *Pick strength-form from [facility] for eRX* 06/28/2023 Active Ezetimibe 10 MG Oral 06/28/2023 Act sang Felodipine ER 5 mg Oral 06/28/2023 Active Mounjaro 10 MG/0.5ML Subcutaneous *[facility] for [facility] and Interaction Alerts* 06/28/2023 Active Farxiga 10 MG Oral 06/28/2023 Activ e BD ULTRA-FINE PEN NEEDLE 32 gauge x MISCELLANEOUS *Reorder from [facility] for eRx and Interaction Alerts* 06/28/2023 Active Ketoconazole 2% External 06/28/2023 Act sang FREESTYLE JH 2 SENSOR KIT *Reorder from [employer] for eRx and Interaction Alerts* 06/28/2023 Active Dextromethorphan-buPROPio n ER 45-105 MG 1 tablet Orally twice a day for 30 days 06/30/2024 Active Escitalopram Oxalate 20 MG 1 tablet Once a day for 90 days Active Clobetasol Propionate 0.05 % External 06/28/2023 Active Social History Sex Assigned At : Social History Observation Description Sex Assigned At Female Problems Problem Type SNOMED Code ICD Code Onset Dates Problem Status W/U Status Risk Notes Problem [id number] MDD (major depressive disorder), recurrent episode, moderate (F33.1) Active confirmed Encounters Encounter Location Date Provider Diagnosis [facility] [employer] [facility] [address] [facility] [address] [place] [address] 06/30/2024 Nilam Molina Generalized anxiety disorder F41.1 ; MDD (major depressive disorder), recurrent episode, moderate F33.1 ; Primary insomnia F51.01 and Encounter for screening for depression Z13.31 Assessments Encounter Date Diagnosis (ICD Code) Assessment Notes Treatment Notes Treatment Clinical Notes Section Notes 06/30/2024 Generalized anxiety disorder (ICD-10 - F41.1) Learning About Generalized Anxiety Disorder material was published, Generalized Anxiety Disorder: Care Instructions material was published, Learning About Anxiety Disorders material was published, Learning About Transcranial Magnetic Stimulation (TMS) material was published 1. depression - increase depression labs done PCP - thyroid low and rechecking in 2 weeks seeing MAINTENANCE REPAIRER for hormone isuses discuss and educated on medications options for depression and anxiety Add Auvelity 45/105 mg 1 tablet for 3 days then take 1 tablet twice a day samples given and sent to pharmacy - educated on rx educated on medical issues may cause depresison and anxiety s/s - Thyroid and hormonal Lexapro 20 mg daily Effexor 150 mg daily monitor B/P continue therapy colonoscopy, mammogram PAP 2023 eye provider 06/28/23 2. Generalized anxiety disorder - increase anxiety Lexapro 20 mg daily Buspar 10 mg a day in am reported has a hard time remember more than daily sleep study completed- CPAP 06/30/2024 MDD (major depressive disorder), recurrent episode, moderate (ICD-10 - F33.1) Preventing Depression From Coming Back: Care Instructions material was published, Depression Treatment: Care Instructions material was published, Seasonal Affective Disorder: Care Instructions material was published 1. depression - increase depression labs done PCP - thyroid low and rechecking in 2 weeks seeing MAINTENANCE REPAIRER for hormone isuses discuss and educated on medications options for depression and anxiety Add Auvelity 45/105 mg 1 tablet for 3 days then take 1 tablet twice a day samples given and sent to pharmacy - educated on rx educated on medical issues may cause depresison and anxiety s/s - Thyroid and hormonal Lexapro 20 mg daily Effexor 150 mg daily monitor B/P continue therapy colonoscopy, mammogram PAP 2023 eye provider 06/28/23 2. Generalized anxiety disorder - increase anxiety Lexapro 20 mg daily Buspar 10 mg a day in am reported has a hard time remember more than daily sleep study completed- CPAP 06/30/2024 Primary insomnia (ICD-10 - F51.01) Insomnia: Care Instructions material was published, Learning About Sleeping Well material was published 1. depression - increase depression labs done PCP - thyroid low and rechecking in 2 weeks seeing MAINTENANCE REPAIRER for hormone isuses discuss and educated on medications options for depression and anxiety Add Auvelity 45/105 mg 1 tablet for 3 days then take 1 tablet twice a day samples given and sent to pharmacy - educated on rx educated on medical issues may cause depresison and anxiety s/s - Thyroid and hormonal Lexapro 20 mg daily Effexor 150 mg daily monitor B/P continue therapy colonoscopy, mammogram PAP 2023 eye provider 06/28/23 2. Generalized anxiety disorder - increase anxiety Lexapro 20 mg daily Buspar 10 mg a day in am reported has a hard time remember more than daily sleep study completed- CPAP 06/30/2024 Encounter for screening for depression (ICD-10 - Z13.31) 1. depression - increase depression labs done PCP - thyroid low and rechecking in 2 weeks seeing MAINTENANCE REPAIRER for hormone isuses discuss and educated on medications options for depression and anxiety Add Auvelity 45/105 mg 1 tablet for 3 days then take 1 tablet twice a day samples given and sent to pharmacy - educated on rx educated on medical issues may cause depresison and anxiety s/s - Thyroid and hormonal Lexapro 20 mg daily Effexor 150 mg daily monitor B/P continue therapy colonoscopy, mammogram PAP 2023 eye provider 06/28/23 2. Generalized anxiety disorder - increase anxiety Lexapro 20 mg daily Buspar 10 mg a day in am reported has a hard time remember more than daily sleep study completed- CPAP 06/30/2024 Other Venlafaxine material was published, Dextromethorphan and Bupropion material was published, Buspirone material was published 1. depression - increase depression labs done PCP - thyroid low and rechecking in 2 weeks seeing MAINTENANCE REPAIRER for hormone isuses discuss and educated on medications options for depression and anxiety Add Auvelity 45/105 mg 1 tablet for 3 days then take 1 tablet twice a day samples given and sent to pharmacy - educated on rx educated on medical issues may cause depresison and anxiety s/s - Thyroid and hormonal Lexapro 20 mg daily Effexor 150 mg daily monitor B/P continue therapy colonoscopy, mammogram PAP 2023 eye provider 06/28/23 2. Generalized anxiety disorder - increase anxiety Lexapro 20 mg daily Buspar 10 mg a day in am reported has a hard time remember more than daily sleep study completed- CPAP Plan Of Treatment Medication Medication Name Sig Start Date Stop Date Notes busPIRone HCl 10 MG 1 tablet Oral Once a day for 90 days 09/28/2024 Venlafaxine HCl ER 150 MG 1 capsule ever y motning Oral Once a day for 90 days Dextromethorphan-buPROPion E R 45-105 MG 1 tablet Orally twice a day for 30 days 06/30/2024 Escitalopram Oxalate 20 MG 1 tablet Once a day for 90 days Treatment Notes Assessment Notes Generalized anxiety disorder Learning Ab out Generalized Anxiety Disorder material was published, Generalized Anxiety Disorder: Care Instructions material was published, Learning About Anxiety Disorders material was published, Learning About Transcranial Magnetic Stimulation (TMS) material was published MDD (major depressive disord er), recurrent episode, moderate Preventing Depression From Coming Back: Care Instructions material was published, Depression Treatment: Care Instructions material was published, Seasonal Affective Disorder: Care Instructions material was published Primary insomnia Insomnia: Care Instr uctions material was published, Learning About Sleeping Well material was published Other Venlafaxine material was published, Dextromethorphan and Bupropion material was published, Buspirone material was published Next Appt Details Follow Up: 3 Weeks, Reason: medication follow up Auvelity Provider Name:Nilam Jesse , 07/25/2024 10:45:00 AM, [address], [place], [address], Progress Notes * CHRIS OLIVA ADOB: (49 yo F)Acc No.[id number]:06/30/2024 Patient: CHRIS BAKER Provider: DANISH NAIDU :1975 A ge:49 Y S ex:Female Date:06/30/2024 Address:[address], [facility] Pcp:Alvaro Parker MD Subjective: * Chief Complaints: * 1 . F/u depression and anxiety. * HPI: H istory of Presenting Problem: Sleep Problems HPIReported by jamison santiago.General Sleep: n ormal sleep; not sleepy during the day (daytime somnolence); no shank rander headache Onset/Timing: g radual onset; chronic Severity: [...] Follow up depression, anxiety and sleep chronic since last visit I feel not really good, may be menopausal and since 05/06 increase d epression I just want to beat home and not do things and augment with and I have not change things and I have appt with MAINTENANCE REPAIRER and PCP change seen 06/06, some hot flashes in past none in 3 months but mood down, and irritable and low interest, motivation, work seem more stressful and not handling things same level as before, anxiety been worst also, and why do not do things, I feel not restless or fidgety, and some mind racing I am worthless and stuck in a paterrn, sleep same, and when I fall asleep I am on new rx for night just filled from PCP, I have not had it last few nights and brain races at night to solve problems, and dreams stressful, CPAP and appetite less and also adjusted rx for DM and weight loss and A1C improved and go again next month, concentration and focus on stuff I want to, board games, no SI/HI no del, no psychosis ETOH denies smoking denies drugs denies labs with PCP- thyroid low and recheck in 2 weeks dad liver cancer, 2020 rx hx Lexapro Effexor. D epression screening: Intervention D epression Screening Findings P ositve F ollow-Up for Depression M ental health treatment assessment, Patient follow-up to return when and if necessary S uicide Risk Assessment Performed _ A dditional Evaluation for Depression P sychiatric interview and evaluation N lesia of the standardized tool used for adult depression screening: Jamison santiago Health Questionnaire (PHQ-9) * ROS: Jamison santiago reports s leep apnea (CPAP) b ut reports no cough; covid 12/15/21 had sleep study completed. She reports a rthralgias/joint pain; h and surgery 2021. She reports f atigue. She reports no fever, no significant weight gain, and weight loss unsure on Mounjaro recently. She reports wears glasses She reports no chest pain, , no shortness of breath , no palpitations, no known heart murmur, and no ankle swelling. She reports no abdominal pain, no nausea, no vomiting, no constipation, normal appetite, no diarrhea, and no GERD. She reports no incontinence, no difficulty urinating, nd no increased frequency. She reports no gait dysfunction. She reports depression, sleep disturbances, feeling safe in a relationship, no alcohol abuse, reported anxiety, no hallucinations, no suicidal thoughts, no mood swings, no memory loss, and reported agitation. * Medical History: Jamison mora: Acute COVID-19, Generalized anxiety disorder, Mild major depression, Primary insomnia, ,. * Medications: T aking Mounjaro 10 MG/0.5ML Solution Pen-injector Subcutaneous , Notes to Pharmacist: *Reorder from [employer] for eRx and Interaction Alerts*, Taking Glimepiride 4 MG Tablet Oral , Taking hydroCHLOROthiazide 25 MG Tablet Oral , Taking Hydrocortisone 2.50% Cream External , Taking Losartan Potassium 100 MG Tablet Oral , Taking Clobetasol Propionate 0.05 % Ointment External , Taking Ketoconazole 2% Cream External , Taking Farxiga 10 MG Tablet Oral , Taking BD ULTRA-FINE PEN NEEDLE 32 gauge x 5/32 NEEDLE, DISPOSABLE MISCELLANEOUS , Notes to Pharmacist: *Reorder from [facility] for eRx and Interaction Alerts*, Taking FREESTYLE JH 2 SENSOR KIT , Notes to Pharmacist: *Reorder from [facility] for eRx and Interaction Alerts*, Taking Felodipine ER 5 mg Tablet Extended Release 24 Hour Oral , Taking Ezetimibe 10 MG Tablet Oral , Taking Melatonin , Notes to Pharmacist: *Pick strength-form from [facility] for eRX*, Taking busPIRone HCl 10 MG Tablet TAKE 1 TABLET BY MOUTH ONCE A DAY , Taking Venlafaxine HCl ER 150 MG Capsule Extended Release 24 Hour TAKE 1 CAPSULE BY MOUTH ONCE A DAY , Taking Escitalopram Oxalate 20 MG Tablet TAKE 1 TABLET BY MOUTH ONCE A DAY , Medication List reviewed and reconciled with the patient * Allergies: V ancomycin: Allergy - Onset Date 06/28/2023. Objective: * Vitals: * Examination: P sychiatry: Appearance: w ell-groomed, well-nourished, appears stated age, over weight. Abnormal body movements: n one. Affect / mood: a ppropriate, full range. Aggression: l ow. Anger control: g ood. Attention: g ood. Attitude: c ooperative. Gait s teady. Homicidal ideation: n one. Suicidal ideation: n [...] M DD (major depressive disorder), recurrent episode, moderate - F33.1 (Primary) ?2. G eneralized anxiety disorder - F41.1 3 . P rimary insomnia - F51.01? 4. E ncounter for screening for depression - Z13.31 1. depression - increase depression labs done PCP - thyroid low and rechecking in 2 weeks seeing MAINTENANCE REPAIRER for hormone isuses discuss and educated on medications options for depression and anxiety Add Auvelity 45/105 mg 1 tablet for 3 days then take 1 tablet twice a day samples given and sent to pharmacy - educated on rx educated on medical issues may cause depresison and anxiety s/s - Thyroid and hormonal Lexapro 20 mg daily Effexor 150 mg daily monitor B/P continue therapy colonoscopy, mammogram PAP 2023 e ye provider 06/28/23 2. Generalized anxiety disorder - increase anxiety Lexapro 20 mg daily Buspar 10 mg a day in am r eported has a hard time remember more than daily sleep study completed- CPAP Plan: * Treatment: 2. G eneralized anxiety disorder Refill busPIRone HCl Tablet, 10 MG, 1 tablet, Oral, Once a day, 90 days, 90 Tablet, Refills 0. Notes: Learning About Generalized Anxiety Disorder material was published, Generalized Anxiety Disorder: Care Instructions material was published, Learning About Anxiety Disorders material was published, Learning About Transcranial Magnetic Stimulation (TMS) material was published 3. P rimary insomnia Notes: Insomnia: Care Instructions material was published, Learning About Sleeping Well material was published 4. O thers Notes: Venlafaxine material was published, Dextromethorphan and Bupropion material was published, Buspirone material was published * Procedure Codes: 9 6127 BEHAV ASSMT W/SCORE & DOCD/STAND INSTRUMENT, G2211 VISIT COMPLEXITY INHERENT TO ONGOING CARE RELATED TO A PATIENT'S SINGLE, SERIOUS CONDITION OR A COMPLEX CONDITION, G8431 CLIN DEPRESSION SCREEN DOC * Follow Up: 3 Weeks (Reason: medication follow up Auvelity) * Billing Information: * Visit Code: 35478 OFFICE OUTPATIENT VISIT 25 MINUTES DETAILED HISTORY AND EXAM/MODERATE MEDICAL DECISION MAKING. * Procedure Codes: 50534 BEHAV ASSMT W/SCORE & DOCD/STAND INSTRUMENT. G2211 VISIT COMPLEXITY INHERENT TO ONGOING CARE RELATED TO A PATIENT'S SINGLE, SERIOUS CONDITION OR A COMPLEX CONDITION. G8431 CLIN DEPRESSION SCREEN DOC. * Sign off status: Completed true * Provider: MANOJ NAIDUP Date: 06/30/2024 Generated for Gab crane/Tim/Helene on: 0 07/12/2024 08:42 AM CDT History and Physical Notes * HPI (History of Present Illness) Category Sub-Category Detail Notes Category Not es History of Presenting Problem Sleep Problems HPIReported by patient.General Sleep: normal sleep; not sleepy during the day (daytime somnolence); no shank rander headache Onset/Timing: gradual onset; chronic Severity: does [...] Follow up depression, anxiety and sleep chronic since last visit I feel not really good, may be menopausal and since 05/06 increase depression I just want to beat home and not do things and augment with and I have not change things and I have appt with MAINTENANCE REPAIRER and PCP change seen 06/06, some hot flashes in past none in 3 months but mood down, and irritable and low interest, motivation, work seem more stressful and not handling things same level as before, anxiety been worst also, and why do not do things, I feel not restless or fidgety, and some mind racing I am worthless and stuck in a paterrn, sleep same, and when I fall asleep I am on new rx for night just filled from PCP, I have not had it last few nights and brain races at night to solve problems, and dreams stressful, CPAP and appetite less and also adjusted rx for DM and weight loss and A1C improved and go again next month, concentration and focus on stuff I want to, board games, no SI/HI no del, no psychosis ETOH denies smoking denies drugs denies labs with PCP- thyroid low and recheck in 2 weeks dad liver cancer, 2020 rx hx Lexapro Effexor Depression screening Intervention Depression Screening Findings: Positve Follow-Up for Depression: Va nta health treatment assessment, Patient follow-up to return when and if necessary Suicide Risk Assessment Performed: Additional Evaluation for Depression: Ps ychiatric interview and evaluation Name of the standardized too l used for adult depression screening:: Patient Health Questionnaire (PHQ-9) Examination Category Sub-Category Detail Notes Category Not [...] no Comprehension - Intellectual function: a verage Gait steady
--- OUTSIDE RECORDS SUMMARY | 2024-07-12 23:16 | XMS_ITS | Continuity of Care Document ---
Author Organization [facility] Address [address] [facility] [address] [place] [address] Phone Care Team Providers Care Wound Specialist Name Role Phone Norbert Talavera MD Unavailable [...] - Active Procedures Procedure Date OFFICE/OUTPATIENT VISIT [facility] OFFICE/OUTPATIENT VISIT [facility] Advance Directives Directive Yes / No Effective Date File Name No Information Encounters Encounter Description Practice Location Reason(s) For Visit Diagnoses Date Provider Providers Copied on Encounter OFFICE/OUTPAT IENT VISIT EST [facility], [address] [place] [address], [address], [place] tel:[phone] [facility] Follow Up of L knee-MRI results (chief complaint) Acute pain of left knee 6 Ilan Toussaint. [address], [place], [place], [id number] . tel: [phone] OFFICE/OUTPAT IENT VISIT [facility], [address] [facility] [address], [place], [address], [place] tel:[phone] [facility] [place] left knee subluxation /dislocatio n (chief complaint) Acute pain of left knee 6 Ilan Toussaint. [address], [place], [place], [id number] . tel: [phone] Family History Family Member Type Diagnosis Age At Onset Father Problem (finding) Maternal history of debbie betes mellitus 55 Payers Payer name Insurance type Covered green party ID Chen farley(s) Blue Access Choice PPO [id number] [id number] Social History Type Description Quantity Date Captured [...]
--- OUTSIDE RECORDS SUMMARY | 2024-07-12 23:16 | XMS_ITS | Encounter Summary ---
Author Organization [facility] Address [address] [place] [address] Care Team Providers Care Public Health Aide Name Role Phone Malathi Mackay Primary Care Provider [phone] Encounter Details Date Type Department Care Team (Late st Contact Info) Description 04/26/2020 AngioScore Message Enc [facility] Medical Group Family & Internal Medicine [facility] [address] [place] [address] [facility], [facility] Provider Pap smear result Social History Tobacco [...] on file Legal Sex Female 12:54 PM 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 No / Unsure 04/17/2020 7:34 AM CARROTING MACHINE OFFBEARER documented as of this encounter Plan of Treatment Not on file documented as of this encounter Visit Diagnoses Not on filedocumented in this encounter Care Teams Public Health Aide Relationship Specialty Start Date End Date Malathi Mackay [place] [id number] [place] [address] PCP - General PHYSICIAN REHABILITATION SERVICES AIDE 04/08/20 documented as of this encounter
--- OUTSIDE RECORDS SUMMARY | 2024-07-12 23:16 | XMS_ITS | Referral Summary ---
Author Organization [facility] Address [address] [place] [address] Care Team Providers Care Tow Truck Dispatcher Name Role Phone Baltazar Hernandez MD Primary Care Provider [phone] Allergies Active Allergy Reactions Criticality Noted Date [...] tabletIndications :hypertension Take 25 mg by mouth resident intern before breakfast Active insulin glargine (TOUJEO MAX) [...] (11/03/2021): Added automatically from request for surgery [id number] Right carpal tunnel syndrome 04/23/2021 Overview (04/23/2021): Added automatically from request for surgery [id number] Closed fracture of fourth cervical vertebra 01/10 [...] Sexual Orientation Lesbian 04/21/2021 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
[2024-07-12 23:27] VITALS: BP 139/64; PULSE 80; RESP 17; TEMP 36.8; O2SAT 100
[2024-07-13] MEDS: MORPHINE SULFATE (*CRX) 4 MG/ML INJ IV PUSH (00:01)
[2024-07-13 01:10] VITALS: BP 143/68; PULSE 87; RESP 16; O2SAT 97
== END 2024-07-13 01:10 | disposition home or self-care (01) ==
PROVIDERS: Emergency Provider Student in an Organized Health Care Education/Training Program; PCP Family Medicine
DX: M25.551 Pain in right hip (principal); M19.90 Unspecified osteoarthritis, unspecified site; G47.30 Sleep apnea, unspecified; D64.9 Anemia, unspecified; I10 Essential (primary) hypertension; E11.9 Type 2 diabetes mellitus without complications; F41.9 Anxiety disorder, unspecified; E78.5 Hyperlipidemia, unspecified
CPT/HCPCS: 73502; 96372; 99283; J2270

== ENCOUNTER 2024-07-24 09:25 | Outpatient (CLI) | payer BC, SELFPAY ==
--- OUTSIDE RECORDS SUMMARY | 2024-07-24 10:13 | XMS_ITS | Clinical Summary ---
Author Organization [facility] Address [address] [place] [address] Care Team Providers Care Flight Follower Name Role Phone Unavailable Primary Care Provider Unavailabl e Source Comments [facility],non-owned Affiliates and Associated Physician Practices is amultiple site organization consisting of ambulatory clinics and hospital sitesin [place], [place], [place] and [place]. This disclosure is being madepursuant to the Care Everywhere program and may not contain all information available regarding this patient. Last updated 17.[facility] Social History Tobacco Use Types Packs/Day Years Used Date Smoking Tobacco: Never Assessed Comments Unknown Sex and Gender Information Value Date Recorded Sex Assigned at Not on file Legal Sex Female 6:14 AM FICTION WRITER Gender Identity Not on file Sexual Orientation [...] SCREENING 1973 LIPID TESTING 1973 MAMMOGRAM 1973 HIV SCREENING 1988 HEPATITIS C SCREENING [...]
--- OUTSIDE RECORDS SUMMARY | 2024-07-24 10:13 | XMS_ITS | Encounter Summary ---
Author Organization [facility] Address [address] [place] [address] Care Team Providers Care Bulb Assembler Name Role Phone Malathi Mackay Primary Care Provider [phone] Encounter Details Date Type Department Care Team (Late st Contact Info) Description 04/26/2020 Ascender Software Message Enc [facility] Medical Group Family & Internal Medicine [facility] [address] [place] [address] [facility], [facility] Provider Pap smear result Social History Tobacco [...] on file Legal Sex Female 12:54 PM MERIT SYSTEM DIRECTOR Gender Identity Not on file Sexual Orientation Not on file COVID-19 Exposure Response Date Recorded In the last month, have you been in contact with someone who was confirmed or suspected to have Coronavirus / COVID-19? No / Unsure 04/17/2020 7:34 AM MERIT SYSTEM DIRECTOR documented as of this encounter Plan of Treatment Not on file documented as of this encounter Visit Diagnoses Not on filedocumented in this encounter Care Teams Bulb Assembler Relationship Specialty Start Date End Date Malathi Mackay [place] [id number] [place] [address] PCP - General PHYSICIAN CONCIERGE 04/08/20 documented as of this encounter
--- OUTSIDE RECORDS SUMMARY | 2024-07-24 10:13 | XMS_ITS | Clinical Summary ---
Author Organization [facility] Address [address] [place] [address] Care Team Providers Care Project Intern Name Role Phone Malathi Mackay Primary Care Provider + [phone] Allergies Active Allergy Reactions Criticality Noted Date [...] Active Problems No known active problems Immunizations Immunization Administration Dates Next Due Influenza Adult (Generic) [...] on file Legal Sex Female 12:54 PM DOCTOR OF NATUROPATHIC MEDICINE Gender Identity Not on file Sexual Orientation Not on file Last Filed Vital Signs Vital Sign Reading Time Taken Comments Blood Pressure 138/80 04/17/2020 7:52 AM DOCTOR OF NATUROPATHIC MEDICINE Pulse 86 04/17/2020 7:52 AM DOCTOR OF NATUROPATHIC MEDICINE Temperature 36.2 C (97.2 F) 04/17/2020 7:52 AM DOCTOR OF NATUROPATHIC MEDICINE Respiratory Rate 18 04/17/2020 7:52 AM DOCTOR OF NATUROPATHIC MEDICINE Oxygen Saturation 98% 04/17/2020 7:52 AM DOCTOR OF NATUROPATHIC MEDICINE Inhaled Oxygen Concentration - - Weight 138.9 kg (306 lb 3.2 oz) 04/17/2020 7:52 AM DOCTOR OF NATUROPATHIC MEDICINE Height 188 cm (6' 2 ) 04/17/2020 7:52 AM DOCTOR OF NATUROPATHIC MEDICINE Body Mass Index 39.31 04/17/2020 7:52 AM DOCTOR OF NATUROPATHIC MEDICINE Plan of Treatment Health Maintenance Due Date [...] 5 Years) and At-Risk Patients (6 to 49 Years) Aged Out No longer eligible b ased on patient's age to complete this topic RSV Immunizations Under 20 Months Aged Out No longer eligible b ased on patient's age to complete this topic Procedures Procedure Name Priority Date/Time Associated Diagnosis Comments MG SCREENING W VINNY TROY DIGI Routine 05/08/2020 8:42 AM DOCTOR OF NATUROPATHIC MEDICINE Breast cancer screening by mammogram OUTSIDE CYTOPATH CERV/VAG INTERPRET (PAP) (SCAN ORDER) 04/17/2020 from Last 3 Months or Most Recently Relevant to Health Maintenance Results * MG SCREENING W VINNY TROY DIGI (05/08/2020 8:42 AM DOCTOR OF NATUROPATHIC MEDICINE) Anatomical Region Laterality Modality Breast Bilateral Mammography 05/10/2020 3:26 PM DOCTOR OF NATUROPATHIC MEDICINE Narrative 05/10/2020 3:27 PM DOCTOR OF NATUROPATHIC MEDICINE IMAGING STUDIES: MG SCREENING W VINNY TROY [...] Most Recently Relevant to Health Maintenance Insurance [facility] Care Teams Project Intern Relationship Specialty [place] [address] [place] [address] PCP - General PHYSICIAN SALES AND SERVICE ENGINEER 04/08/20
--- OUTSIDE RECORDS SUMMARY | 2024-07-24 10:13 | XMS_ITS | Continuity of Care Document ---
Author Organization [facility] Address [address] [facility] [address] [place] [address] Phone Care Team Providers Care Electric Powerline Examiner Name Role Phone Norbert Talavera MD Unavailable [...] - Active Procedures Procedure Date OFFICE/OUTPATIENT VISIT [facility] OFFICE/OUTPATIENT VISIT [facility] Advance Directives Directive Yes / No Effective Date File Name No Information Encounters Encounter Description Practice Location Reason(s) For Visit Diagnoses Date Provider Providers Copied on Encounter OFFICE/OUTPAT IENT VISIT EST [facility], [address] [place] [address], [address], [place] tel:[phone] [facility] Follow Up of L knee-MRI results (chief complaint) Acute pain of left knee 6 Ilan Toussaint. [address], [place], [place], [address] . tel: [phone] OFFICE/OUTPAT IENT VISIT [facility], [address] [facility] [address], [place], [address], [place] tel:[phone] [facility] [place] left knee subluxation /dislocatio n (chief complaint) Acute pain of left knee 6 Ilan Toussaint. [address], [place], [place], [id number] . tel: [phone] Family History Family Member Type Diagnosis Age At Onset Father Problem (finding) Maternal history of debbie betes mellitus 55 Payers Payer name Insurance type Covered green party ID Chen farley(s) Blue Access Choice PPO [id number] [id number] Social History Type Description Quantity Date Captured [...]
--- OUTSIDE RECORDS SUMMARY | 2024-07-24 10:13 | XMS_ITS | Continuity of Care Document ---
Author Organization [facility] Address [address] [place] [address] [facility] [address] [place] [address] Phone Care Team Providers Care Wreath And Garland Maker Name Role Phone Luis Miguel Gudino Unavailable Unavailable Procedures Procedure Date Office/outpatient Visit, Est Eye Exam & Treatment Advance Directives Directive Yes / No Effective Date File Name No Information Encounters Encounter Description Practice Location Reason(s) For Visit Diagnoses Date Provider Providers Copied on Encounter Office/outpa tient Visit, Est [facility], [address], [place], [place], [id number], [place] tel:[phone] [facility] No Information 5-200 [address] Vidalcatherinerobert Bolanos. [address] [facility] [address], [place], [address], [place]. tel:[phone] [facility], [address] [place] [address] [address], [place], [place], [id number], [place] tel:[phone] [facility] No Information 8-200 [address] Wankgricelda Delgado. [address] [facility], [place], [place], [address], [place]. tel:[phone] Referring Provider: Riki Phillips MD, [address], [address]. tel:[phone] Family History Family Member Type Diagnosis Age At Onset No Information Payers Payer name Insurance type Covered constitution party ID Authoriza tion(s) No Information Social History [...]
[2024-07-24 10:19] LABS: Creatinine Urine 64.1 mg/dL
[2024-07-24 10:41] LABS: Thyroid Stimulating Hormone 0.257 uIU/mL (0.465-4.680)
[2024-07-24 10:44] LABS: Free T4 Free Thyroxine 0.83 ng/dL (0.78-2.19)
[2024-07-24 10:45] LABS: MALB Creatinine Ratio < 9.4 mg/g (0-30); Microalbumin Urine Random < 6.0 mg/L (0-16.7)
[2024-07-27 09:39] LABS: Thyroid Peroxidase Antibodies 3 IU/mL (<9)
== END 2024-07-24 09:26 | disposition home or self-care (01) ==
PROVIDERS: PCP Family Medicine; Referring Provider Family Medicine; Visit Provider Nurse Practitioner Family
DX: E78.5 Hyperlipidemia, unspecified (principal); E11.65 Type 2 diabetes mellitus with hyperglycemia; Z79.4 Long term (current) use of insulin; I10 Essential (primary) hypertension; G47.33 Obstructive sleep apnea (adult) (pediatric); R53.83 Other fatigue; R79.89 Other specified abnormal findings of blood chemistry
CPT/HCPCS: 36415; 82043; 84439; 84443; 86376

== ENCOUNTER 2024-12-27 16:22 | Outpatient (CLI) | payer BC, SELFPAY ==
--- OUTSIDE RECORDS SUMMARY | 2008-02-15 07:30 | XMS_ITS | Continuity of Care Document ---
Author Organization [facility] Address [address] [place] [address] [facility] [address] [place] [address] Phone Care Team Providers Care Senior Javascript Engineer Name Role Phone Luis Miguel Gudino Unavailable Unavailable Procedures Procedure Date Office/outpatient Visit, Est Eye Exam & Treatment Advance Directives Directive Yes / No Effective Date File Name No Information Encounters Encounter Description Practice Location Reason(s) For Visit Diagnoses Date Provider Providers Copied on Encounter Office/outpa tient Visit, Est [facility], [address], [place], [place], [id number], [place] tel:[phone] [facility] No Information 5-200 8 Vidalcatherinerobert Bolanos. [address] [facility] [address], [address], [place]. tel:[phone] [facility], [address] [place] [address] [address], [place], [place], [id number], [place] tel:[phone] [facility] No Information 8-200 7 Wankgricelda Delgado. [address] [facility], [place], [place], [id number], [place]. tel:[phone] Referring Provider: Riki Phillips MD, [address], [address]. tel:[phone] Family History Family Member Type Diagnosis Age At Onset No Information Payers Payer name Insurance type Covered libertarian ID Authoriza tion(s) No Information Social History Type Description Quantity Date Captured Comments Sex Female Smoking Status No Information Chief Complaint And Reason For Visit No Information Reason For Referral Reason For Referral No Information History Of Present Illness Encounter Date Complaint History Of Prese nt Illness No Information Functional Status Date Functional Assessmen t No Information Instructions Date Instruction Additional Infor mation No Information Assessments Type Assessment Date No Information Patient Care Teams Name Effective Dates (start - stop) Status Members No Information
--- OUTSIDE RECORDS SUMMARY | 2015-11-13 11:00 | XMS_ITS | Continuity of Care Document ---
Author Organization [facility] Address [address] [facility] [address] [place] [address] Phone Care Team Providers Care Risk Management Manager Name Role Phone Norbert Talavera MD Unavailable Unavailable Allergies, Adverse Reactions, Alerts Substance Reaction Status Criticality vancomycin swelling Active No Information Medications Medication Instructions Dosage Effective Dates (start - stop) Status Comments WelChol 625 mg tablet - Active venlafaxine ER 150 mg capsule,extended release 24 hr - Active Trulicity 0.75 mg/0.5 mL subcutaneous pen injector - Active metformin 500 mg tablet - Active losartan 100 mg-hydrochlorothiazide 25 mg tablet - Active felodipine ER 5 mg tablet,extended release 24 hr - Active Procedures Procedure Date OFFICE/OUTPATIENT VISIT [facility] OFFICE/OUTPATIENT VISIT [facility] Advance Directives Directive Yes / No Effective Date File Name No Information Encounters Encounter Description Practice Location Reason(s) For Visit Diagnoses Date Provider Providers Copied on Encounter OFFICE/OUTPAT IENT VISIT EST [facility], [address] [place] [address], [address], [place] tel:[phone] [facility] Follow Up of L knee-MRI results (chief complaint) Acute pain of left knee 6 Ilan Toussaint. [address], [place], [place], [id number] . tel: [phone] OFFICE/OUTPAT IENT VISIT [facility], [address] [facility] [address], [place], [address], [place] tel:[phone] [facility] [place] left knee subluxation /dislocatio n (chief complaint) Acute pain of left knee 6 Ilan Toussaint. [address], [place], [place], [id number] . tel: [phone] Family History Family Member Type Diagnosis Age At Onset Father Problem (finding) Maternal history of debbie betes mellitus 55 Payers Payer name Insurance type Covered republican ID Chen farley(s) Blue Access Choice PPO E2 OT [id number] Social History Type Description Quantity Date Captured Comments Alcohol Use Details Unknown Caffeine Use Details Unknown Tobacco Use Status Never smoked tobacco 2015 Smoking Status Never smoker Non-Smoking Tobacco Use Details : No Details Available : No Details Available Sex Female Chief Complaint And Reason For Visit From encounter dated '11/13/2015 16:00'. Follow Up of L knee-MRI results (chief complaint) Reason For Referral Reason For Referral No Information Plan Of Treatment Date Type Action Status Referral Ordered: MRI ANY JT LXTR C-MATRL LT knee Appointment date/timeframe: 11/06/2015 ordered Referral Ordered: RADEX KNE COMPL 4/MORE VIEWS LT ordered History Of Present Illness Encounter Date Complaint History Of Prese nt Illness Follow Up of L knee-MRI results left knee subluxation/dislocatio n Functional Status Date Functional Assessmen t No Information Instructions Date Instruction Additional Infor mation elevate higher than your heart R elated to Acute pain of left knee activity as tolerated Related to Acute pain of left knee apply heating pad or ice as tole rated Related to Acute pain of left knee Assessments Type Assessment Date assessment Acute pain of left knee 016 Patient Care Teams Name Effective Dates (start - stop) Status Members No Information
--- OUTSIDE RECORDS SUMMARY | 2024-12-27 16:38 | XMS_ITS | Clinical Summary ---
Author Organization [facility] Address [address] [place] [address] Care Team Providers Care Pharmacognosy Teacher Name Role Phone Baltazar Hernandez MD Primary Care Provider [phone] Allergies Active Allergy Reactions Criticality Noted Date [...] tabletIndications :hypertension Take 25 mg by mouth water quality analyst before breakfast Active insulin glargine (TOUJEO MAX) [...] (11/03/2021): Added automatically from request for surgery [id number] Right carpal tunnel syndrome 04/23/2021 Overview (04/23/2021): Added automatically from request for surgery [id number] Closed fracture of fourth cervical vertebra 01/10 [...] Sexual Orientation Lesbian 04/21/2021 4: 52 PM SPORTS BOOKMAKER Obstetrics History Last Filed Vital Signs Vital [...] 1:08 PM CDT Height 188 cm (6' 2) 01/23/2022 1:08 PM CDT Body Mass Index [...] 2) 06/30/2023 Covid-19 Vaccine (4 - season) 2024 04/03/2021, 07/04/2020, 06/13/2020 Influenza Vaccine (#1) 2024 02/21/2020 Procedures Procedure Name Priority Date/Time Associated [...] Capillary blood 01/23/2022 4 :17 PM CDT [facility] Courtney Lopez MD POINT OF CARE TEST YOU SANDERS Final Result from Last 3 Months or Most Recently Relevant to Health Maintenance Insurance [facility] [employer] Care Teams Pharmacognosy Teacher Relationship Specialty Start Date End Date Baltazar Hernandez MD [address] [facility] [address] [place] [address] PCP - General Internal Medicine 03/20/21
--- OUTSIDE RECORDS SUMMARY | 2024-12-27 16:38 | XMS_ITS | Encounter Summary ---
Author Organization [facility] Address [address] [place] [address] Care Team Providers Care Head Waiter Name Role Phone Malathi Mackay Primary Care Provider [phone] Encounter Details Date Type Department Care Team (Late st Contact Info) Description 04/26/2020 [employer] Message Enc [facility] Medical Group Family & Internal Medicine [facility] [address] [place] [address] [facility] Provider Pap smear result Social History Tobacco [...] on file Legal Sex Female 12:54 PM ZIPPER JOINER Gender Identity Not on file Sexual Orientation Not on file COVID-19 Exposure Response Date Recorded In the last month, have you been in contact with someone who was confirmed or suspected to have Coronavirus / COVID-19? No / Unsure 04/17/2020 7:34 AM ZIPPER JOINER documented as of this encounter Plan of Treatment Not on file documented as of this encounter Visit Diagnoses Not on filedocumented in this encounter Care Teams Head Waiter Relationship Specialty Start Date End Date Malathi Mackay [place] [address] [place] [address] PCP - General PHYSICIAN PRODUCTION OPERATOR 04/08/20 documented as of this encounter
--- OUTSIDE RECORDS SUMMARY | 2024-12-27 16:38 | XMS_ITS | Clinical Summary ---
Author Organization [facility] Address [address] [place] [address] Care Team Providers Care Monomer Purification Operator Name Role Phone Unavailable Primary Care Provider Unavailabl e Source Comments [facility] Captain Wise,non-owned Affiliates and Associated Physician Practices is amultiple site organization consisting of ambulatory clinics and hospital sitesin [place], [place], [place] and [place]. This disclosure is being madepursuant to the Care Everywhere program and may not contain all information available regarding this patient. Last updated 17.[facility] Captain Wise Social History Tobacco Use Types Packs/Day Years Used Date Smoking Tobacco: Never Assessed Comments Unknown Sex and Gender Information Value Date Recorded Sex Assigned at Not on file Legal Sex Female 6:14 AM PROCESS ARTIST Gender Identity Not on file Sexual Orientation [...] 06/30/2023 ZOSTER VACCINE (1 of 2) 06/30/2023 DEPRESSION SCREENING 04/12/2024 COVID-19 VACCINE (1 - 2023-2 5 season) 2024 INFLUENZA VACCINE (#1) 2024 HIB VACCINE Aged Out No longer [...]
--- OUTSIDE RECORDS SUMMARY | 2024-12-27 16:38 | XMS_ITS | Clinical Summary ---
Author Organization [facility] Address [address] [place] [address] Care Team Providers Care As400 Consultant Name Role Phone Malathi Mackay Primary Care Provider + [phone] Allergies Active Allergy Reactions Criticality Noted Date [...] on file Legal Sex Female 12:54 PM PHARMACOLOGY ASSOCIATE Gender Identity Not on file Sexual Orientation Not on file Last Filed Vital Signs Vital Sign Reading Time Taken Comments Blood Pressure 138/80 04/17/2020 7:52 AM PHARMACOLOGY ASSOCIATE Pulse 86 04/17/2020 7:52 AM PHARMACOLOGY ASSOCIATE Temperature 36.2 C (97.2 F) 04/17/2020 7:52 AM PHARMACOLOGY ASSOCIATE Respiratory Rate 18 04/17/2020 7:52 AM PHARMACOLOGY ASSOCIATE Oxygen Saturation 98% 04/17/2020 7:52 AM PHARMACOLOGY ASSOCIATE Inhaled Oxygen Concentration - - Weight 138.9 kg (306 lb 3.2 oz) 04/17/2020 7:52 AM PHARMACOLOGY ASSOCIATE Height 188 cm (6' 2) 04/17/2020 7:52 AM PHARMACOLOGY ASSOCIATE Body Mass Index 39.31 04/17/2020 7:52 AM PHARMACOLOGY ASSOCIATE Plan of Treatment Health Maintenance Due Date [...] 04/17/2020 Cervical Cancer Screening with HPV 04/17/2023 Pneumococcal Vaccine: 50+ Years (1 of 1 - PCV) 06/30/2023 Zoster Vaccines (1 of 2) 06/30/2023 COVID-19 Vaccine (3 - 2024-2 6 season) 2024 07/04/2020, 06/13/2020 DTaP, Tdap and Td Vaccines [...] VINNY TROY DIGI Routine 05/08/2020 8:42 AM PHARMACOLOGY ASSOCIATE Breast cancer screening by mammogram OUTSIDE CYTOPATH CERV/VAG INTERPRET (PAP) (SCAN ORDER) 04/17/2020 from Last 3 Months or Most Recently Relevant to Health Maintenance Results * MG SCREENING W VINNY TROY DIGI (05/08/2020 8:42 AM PHARMACOLOGY ASSOCIATE) Anatomical Region Laterality Modality Breast Bilateral Mammography 05/10/2020 3:26 PM PHARMACOLOGY ASSOCIATE Narrative 05/10/2020 3:27 PM PHARMACOLOGY ASSOCIATE IMAGING STUDIES: MG SCREENING W VINNY TROY [...] Recently Relevant to Health Maintenance Insurance [facility] Care Teams As400 Consultant Relationship Specialty [place] [address] [place] [address] PCP - General PHYSICIAN FOOT DRILL OPERATOR 04/08/20
[2024-12-27 16:54] LABS: Hematocrit 42.8 % (37.0-47.0); Hemoglobin 13.9 g/dL (12.0-15.0); Immature Granulocyte Percent A 0.3 % (0-0.5); Lymphocytes Absolute Auto 2.54 K/mm3 (0.9-3.2); Mean Corpuscular HGB Conc 32.5 g/dl (32-36); Mean Corpuscular Hemoglobin 28.0 pg (26-34); Mean Corpuscular Volume 86.1 fl (80-100); Nucleated Red Blood Cells Absolute Auto 0.000 K/mm3 (0.0-0.012); Nucleated Red Blood Cells Perc 0.0 % (0.0-0.2); Platelet Count Result 404 k/mm3 (150-375); Red Blood Count 4.97 M/mm3 (4.2-5.4); White Blood Count 8.7 K/mm3 (4.5-10.0)
[2024-12-27 17:05] LABS: Add Urine Microscopic? YES; Appearance Urine Clear (Clear); Glucose Urine UA 3+ mg/dL (Negative); Leukocyte Esterase Ur Trace LEU/UL (Negative); Nitrate Urine Negative (Negative); Non Pathogenic Casts 0-2; Specific Grav Ur 1.028 (1.001-1.035)
[2024-12-27 17:11] LABS: Alanine Aminotransferase 17 U/L (6-35); Albumin Level 4.3 g/dL (3.5-5.1); Alkaline Phosphatase 87 U/L (38-126); Anion Gap 9 mmol/L (4-12); Aspartate Amino Transferase 30 U/L (14-36); Bilirubin,Total 0.2 mg/dL (0.2-1.3); Blood Urea Nitrogen 21 mg/dL (7-17); Calcium 9.2 mg/dL (8.4-10.2); Carbon Dioxide 28 mmol/L (22-30); Chloride 100 mmol/L (98-107); Cholesterol 151 mg/dL (0-200); Estimated Glomerular Filt Rate > 60; Glucose 73 mg/dL (65-110); HDL Direct 39 mg/dL; Potassium 3.7 mmol/L (3.4-5.0); Sodium 137 mmol/L (137-145); Total Protein 8.1 g/dL (6.3-8.2); Triglycerides 170 mg/dL (<150)
[2024-12-27 17:30] LABS: MALB Creatinine Ratio 6.6 mg/g (0-30)
[2024-12-27 17:39] LABS: Free T3 3.09 pg/mL (2.71-6.16); Free T4 Free Thyroxine 0.84 ng/dL (0.78-2.19)
[2024-12-27 17:43] LABS: Thyroid Stimulating Hormone 0.189 uIU/mL (0.465-4.680); Total Triiodothyronine (T3) 1.04 NG/ML (0.82-1.58)
[2024-12-27 18:06] LABS: Vitamin B12 561.0 pg/mL (239-931)
== END 2024-12-27 16:23 | disposition home or self-care (01) ==
LOC: ANHLAB 16:25
PROVIDERS: Nurse Practitioner Family; PCP Family Medicine; Visit Provider Nurse Practitioner Family
DX: I95.9 Hypotension, unspecified (principal); N39.0 Urinary tract infection, site not specified; E78.5 Hyperlipidemia, unspecified; E11.65 Type 2 diabetes mellitus with hyperglycemia; I10 Essential (primary) hypertension; R79.89 Other specified abnormal findings of blood chemistry; E66.9 Obesity, unspecified; Z79.4 Long term (current) use of insulin
CPT/HCPCS: 36415; 80053; 80061; 81001; 82043; 82306; 82607; 83520; 84439; 84443; 84480; 84481; 85025; 87086

== ENCOUNTER 2025-01-03 08:41 | Outpatient (CLI) | payer BC, SELFPAY ==
--- OUTSIDE RECORDS SUMMARY | 2025-01-03 09:01 | XMS_ITS | Clinical Summary ---
Author Organization [facility] Address [address] [place] [address] Care Team Providers Care National Account Manager Name Role Phone Baltazar Hernandez MD Primary Care Provider [phone] Allergies Active Allergy Reactions Criticality Noted Date [...] tabletIndications :hypertension Take 25 mg by mouth curve cleaner before breakfast Active insulin glargine (TOUJEO MAX) [...] (11/03/2021): Added automatically from request for surgery [id number] Right carpal tunnel syndrome 04/23/2021 Overview (04/23/2021): Added automatically from request for surgery [id number] Closed fracture of fourth cervical vertebra 01/10 Surgical History Surgery Date Site/Laterality Comments BACK SURGERY x2- lumbar CARPAL TUNNEL RELEASE 04/12/2021 - 05/12/2021 Right SPINE SURGERY 1993 Medical History Medical History Date Comments Anxiety and depression MACARENA (obstructive sleep apnea) we ars CPAP HTN (hypertension) well controll ed HLD (hyperlipidemia) on statin Motion sickness rare Diabetes mellitus on Insulin and Trulicity. 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 Obstetrics History Last Filed Vital Signs Vital [...] of 2) 06/30/2023 Covid-19 Vaccine (4 - 2024- season) 2024 04/03/2021, 07/04/2020, 06/13/2020 Influenza Vaccine [...] Capillary blood 01/23/2022 4 :17 PM CDT [facility] Courtney Lopez MD POINT OF CARE TEST YOU SANDERS Final Result from Last 3 Months or Most Recently Relevant to Health Maintenance Insurance [facility] [employer] Care Teams National Account Manager Relationship Specialty Start Date End Date Baltazar Hernandez MD [address] [facility] [[email or web address] [address] [place] [address] PCP - General Internal Medicine 03/20/21
--- OUTSIDE RECORDS SUMMARY | 2025-01-03 09:02 | XMS_ITS | Clinical Summary ---
Author Organization [facility] Address [address] [place] [address] Care Team Providers Care Director Of Rehabilitation Name Role Phone Malathi Mackay Primary Care Provider + [phone] Allergies Active Allergy Reactions Criticality Noted Date [...] on file Legal Sex Female 12:54 PM HOME CARE CH[facility]IN Gender Identity Not on file Sexual Orientation Not on file Last Filed Vital Signs Vital Sign Reading Time Taken Comments Blood Pressure 138/80 04/17/2020 7:52 AM HOME CARE CHAPLAIN Pulse 86 04/17/2020 7:52 AM HOME CARE [facility] Temperature 36.2 C (97.2 F) 04/17/2020 7:52 AM HOME CARE [facility] Respiratory Rate 18 04/17/2020 7:52 AM HOME CARE [facility] Oxygen Saturation 98% 04/17/2020 7:52 AM HOME CARE [facility] Inhaled Oxygen Concentration - - Weight 138.9 kg (306 lb 3.2 oz) 04/17/2020 7:52 AM HOME CARE [facility] Height 188 cm (6' 2) 04/17/2020 7:52 AM HOME CARE [facility] Body Mass Index 39.31 04/17/2020 7:52 AM HOME CARE [facility] Plan of Treatment Health Maintenance Due Date [...] VINNY TROY DIGI Routine 05/08/2020 8:42 AM HOME CARE [facility] Breast cancer screening by mammogram OUTSIDE CYTOPATH CERV/VAG INTERPRET (PAP) (SCAN ORDER) 04/17/2020 from Last 3 Months or Most Recently Relevant to Health Maintenance Results * MG SCREENING W VINNY TROY DIGI (05/08/2020 8:42 AM HOME CARE [facility]) Anatomical Region Laterality Modality Breast Bilateral Mammography 05/10/2020 3:26 PM HOME CARE [facility] Narrative 05/10/2020 3:27 PM HOME CARE [facility] IMAGING STUDIES: MG SCREENING W VINNY TROY [...] Most Recently Relevant to Health Maintenance Insurance [facility] Care Teams Director Of Rehabilitation Relationship Specialty [place] [address] [place] [address] PCP - General PHYSICIAN TILE LAYER DRAINAGE 04/08/20
--- OUTSIDE RECORDS SUMMARY | 2025-01-03 09:02 | XMS_ITS | Patient Health Record ---
Author Organization [facility] [employer] Address [address] [place] [address] Care Team Providers Care Victim Witness Administrator Name Role Phone Alvaro Parker MD Primary Care Provider Nilam Manzo Unavailable [phone] Allergies Allergen (clinical drug ingredient) Drug/Non Drug Allergy documented on EMR Reaction Allergy Type Onset Date Status vancomycin Vancomycin Unknown Drug Allergy 06/28/2023 Acti ve Reason For Referral No Information Medications Medication SIG (Take, Route, Frequency, Duration) Notes Start Date End Date Status hydroCHLOROthiazide 25 MG Tablet Oral 06/28/2023 Active Glimepiride 4 MG Tablet Oral 06/28/2023 Active Melatonin *Pick strength-form from [employer] for eRX* 06/28/2023 Active Losartan Potassium 100 MG Tablet Oral 06/28/2023 Active Hydrocortisone 2.50% Cream External 06/28/2023 Active Mounjaro 10 MG/0.5ML Solution Pen-injector Subcutaneous *Reorder from [employer] for eRx and Interaction Alerts* 06/28/2023 Active Ezetimibe 10 MG Tablet Oral 06/28/2023 Active Felodipine ER 5 mg Tablet Extended Release 24 Hour Oral 06/28/2023 Act sang FREESTYLE JH 2 SENSOR KIT *Reorder from [employer] for eRx and Interaction Alerts* 06/28/2023 Active Venlafaxine HCl ER 150 MG Capsule Extended Release 24 Hour 1 capsule every motning Oral Once a day; Duration: 90 days Active busPIRone HCl 10 MG Tablet 1 tablet Oral Once a day; Duration: 90 days Active Ketoconazole 2% Cream External 06/28/2023 Active Clobetasol Propionate 0.05 % Ointment External 06/28/2023 Active BD ULTRA-FINE PEN NEEDLE 32 gauge x 5/32 NEEDLE, DISPOSABLE MISCELLANEOUS *Reorder from [employer] for eRx and Interaction Alerts* 06/28/2023 Active Farxiga 10 MG Tablet Oral 06/28/2023 Active Dextromethorphan-buPROPio n ER 45-105 MG Tablet Extended Release 1 tablet Orally twice a day; Duration: 90 days Active Escitalopram Oxalate 20 MG Tablet 1 tablet Once a day; Duration: 90 days Active Immunizations Vaccine Route Administration Date Status Comme nts Influenza virus vaccine, quadrivalent (IIV4), split virus, 0.25 mL dosage Unknown 02/21/2020 Administered Influenza virus vaccine, quadrivalent (IIV4), split virus, 0.25 mL dosage Unknown 02/03/2021 Administered Influenza, injectable, MDCK, preservative free Unknown 02/21/2020 Administered Pfizer [employer] Covid-19 Vac cine 2nd dose Unknown 06/13/2020 Administered Pf[employer] Covid-19 Vac cine 2nd dose Unknown 07/04/2020 Administered Pf[employer] Covid-19 Vac cine 2nd dose Unknown 04/03/2021 Administered Td (adult), adsorbed Unknown 05/02/2018 Administered Social History Tobacco Use: Social History Observation Description Date Details (start date - stop date) Former Smoker NA - NA Sex Assigned At : Social History Observation Description Sex Assigned At Female Social History Tobacco Use: Social Info Question Answer Notes Tobacco Control (Standard) Tobacco use: Former smoker Additional Details Category Social Info Options Details Migrated Social History Migrated Social History Alcohol Intake: None 07/25/2018,Tobacco Years: Former smoker 01/24/2018,Smoking Status: 5 12/28/2022 Problems Problem Type SNOMED Code ICD Code Onset Dates Problem Status W/U Status Risk Notes Problem Generalized anxiety disorder (14212838) Generalized anxiety disorder (F41.1) 06/28/19 24 Active confirmed Problem Primary insomnia (8546555) Primary insomnia (F51.01) 06/28/19 24 Active confirmed Problem Screening for cardiovascular system disease (271335991) Encounter for screening for cardiovascular disorders (Z13.6) Active confirmed Problem Depression Screening (115899095) Encounter for screening for depression (Z13.31) Active confirmed Problem Moderate recurrent major depression (12702365) MDD (major depressive disorder), recurrent episode, moderate (F33.1) Active confirmed Problem Mild recurrent major depression (86447027) MDD (major depressive disorder), recurrent episode, mild (F33.0) Active confirmed Vital Signs Heart Rate 85 /min 11/13/2024 Respiratory Rate 18 /min 07/24/2024 Height-cm 187.96 cm 11/13/2024 Blood pressure diastolic 87 mm Hg 11/13/2024 Weight-kg 145.15 kg 11/13/2024 Height 74.00 in 11/13/2024 Blood pressure systolic 141 mm Hg 11/13/2024 Weight 320 lbs 11/13/2024 BMI 41.08 kg/m2 11/13/2024 Encounters Encounter Location Date Provider Diagnosis [facility] [employer] [place] [address] [address] 06/30/2024 Nilam Therhai Generalized anxiety disorder F41.1 ; MDD (major depressive disorder), recurrent episode, moderate F33.1 ; Primary insomnia F51.01 and Encounter for screening for depression Z13.31 [facility] [place] [address] [address] 07/24/2024 Nilma Thery Encounter for screen ing for cardiovascular disorders Z13.6 ; Generalized anxiety disorder F41.1 ; MDD (major depressive disorder), recurrent episode, moderate F33.1 ; Primary insomnia F51.01 and Encounter for screening for depression Z13.31 [facility] [place] [place] [address] [address] 10/23/2024 Nilam Thery [facility] [place] [place] [address] [address] 11/13/2024 Nilam Thery Encounter for screen ing for cardiovascular disorders Z13.6 ; Generalized anxiety disorder F41.1 ; MDD (major depressive disorder), recurrent episode, moderate F33.1 ; Primary insomnia F51.01 and Encounter for screening for depression Z13.31 [facility] [place] [address] [address] 11/15/2024 Nilam Thery [facility] [place] [place] [address] [address] 06/27/2024 Nilam Molina [facility] [employer] [address] [place] [address] 11/13/2024 Nilam Molina Assessments Encounter Date Diagnosis (ICD Code) Assessment Notes Treatment Notes Treatment Clinical Notes Section Notes 06/30/2024 MDD (major depressive disorder), recurrent episode, moderate (ICD-10 - F33.1) Preventing Depression From Coming Back: Care Instructions material was published, Depression Treatment: Care Instructions material was published, Seasonal Affective Disorder: Care Instructions material was published 1. depression - increase depression labs done PCP - thyroid low and rechecking in 2 weeks seeing [employer] for hormone isuses discuss and educated on [...] more than daily sleep study completed- CPAP 07/24/2024 Encounter for screening for cardiovascular disorders (ICD-10 - Z13.6) 1. depression - labs done PCP - seeing [employer] for hormone isuses- seen [employer] and watching thyroid first discuss and educated on medications options for depression and anxiety Auvelity 45/105 mg 1 tablet twice a day - educated on rx educated on take as prescribed educated on medical issues may cause depresison and anxiety s/s - Thyroid high - see Endo and A1C 7 and hormonal- recent Hip pain Lexapro 20 mg daily Effexor 150 mg daily monitor B/P continue therapy colonoscopy, mammogram PAP 2023 eye provider 06/28/23 2. Generalized anxiety disorder - Lexapro 20 mg daily Buspar 10 mg a day in am reported has a hard time remember more than daily sleep study completed- CPAP 11/13/2024 Encounter for screening for cardiovascular disorders (ICD-10 - Z13.6) 1. depression - labs done PCP - seeing [employer] for hormone isuses- seen [employer] and watching thyroid first discuss and educated on medications options for depression and anxiety Auvelity 45/105 mg 1 tablet twice a day - educated on rx educated on take as prescribed educated on medical issues may cause depresison and anxiety s/s - Thyroid high - see Endo and A1C 7 and hormonal- improved Hip pain Lexapro 20 mg daily Effexor 150 mg daily monitor B/P continue therapy colonoscopy, mammogram PAP 2023 eye provider 06/28/23 2. Generalized anxiety disorder - Lexapro 20 mg daily Buspar 10 mg a day in am reported has a hard time remember more than daily sleep study completed- CPAP 06/30/2024 Generalized anxiety disorder (ICD-10 - F41.1) [employer] Generalized Anxiety Disorder material was published, Generalized Anxiety Disorder: Care Instructions material was published, [employer] Anxiety Disorders material was published, [employer] Transcranial Magnetic Stimulation (TMS) material was published 1. depression - increase depression labs done PCP - thyroid low and rechecking in 2 weeks seeing [employer] for hormone isuses discuss and educated on [...] low and rechecking in 2 weeks seeing [employer] for hormone isuses discuss and educated on [...] more than daily sleep study completed- CPAP 11/13/2024 Generalized anxiety disorder (ICD-10 - F41.1) [employer] Generalized Anxiety Disorder material was published, Generalized Anxiety Disorder: Care Instructions material was published, [employer] Anxiety Disorders material was published, Learning About Transcranial Magnetic Stimulation (TMS) material was published 1. depression - labs done PCP - seeing [employer] for hormone isuses- seen [employer] and watching thyroid first discuss and educated on medications options for depression and anxiety Auvelity 45/105 mg 1 tablet twice a day - educated on rx educated on take as prescribed educated on medical issues may cause depresison and anxiety s/s - Thyroid high - see Endo and A1C 7 and hormonal- improved Hip pain Lexapro 20 mg daily Effexor 150 mg daily monitor B/P continue therapy colonoscopy, mammogram PAP 2023 eye provider 06/28/23 2. Generalized anxiety disorder - Lexapro 20 mg daily Buspar 10 mg a day in am reported has a hard time remember more than daily sleep study completed- CPAP 07/24/2024 Generalized anxiety disorder (ICD-10 - F41.1) [employer] Generalized Anxiety Disorder material was published, Generalized Anxiety Disorder: Care Instructions material was published, [employer] Anxiety Disorders material was published, Learning About Transcranial Magnetic Stimulation (TMS) material was published 1. depression - labs done PCP - seeing [employer] for hormone isuses- seen [employer] and watching thyroid first discuss and educated on medications options for depression and anxiety Auvelity 45/105 mg 1 tablet twice a day - educated on rx educated on take as prescribed educated on medical issues may cause depresison and anxiety s/s - Thyroid high - see Endo and A1C 7 and hormonal- recent Hip pain Lexapro 20 mg daily Effexor 150 mg daily monitor B/P continue therapy colonoscopy, mammogram PAP 2023 eye provider 06/28/23 2. Generalized anxiety disorder - Lexapro 20 mg daily Buspar 10 mg a day in am reported has a hard time remember more than daily sleep study completed- CPAP 07/24/2024 MDD (major depressive disorder), recurrent episode, moderate (ICD-10 - F33.1) Preventing Depression From Coming Back: Care Instructions material was published, Depression Treatment: Care Instructions material was published, Seasonal Affective Disorder: Care Instructions material was published 1. depression - labs done PCP - seeing [employer] for hormone isuses- seen [employer] and watching thyroid first discuss and educated on medications options for depression and anxiety Auvelity 45/105 mg 1 tablet twice a day - educated on rx educated on take as prescribed educated on medical issues may cause depresison and anxiety s/s - Thyroid high - see Endo and A1C 7 and hormonal- recent Hip pain Lexapro 20 mg daily Effexor 150 mg daily monitor B/P continue therapy colonoscopy, mammogram PAP 2023 eye provider 06/28/23 2. Generalized anxiety disorder - Lexapro 20 mg daily Buspar 10 mg a day in am reported has a hard time remember more than daily sleep study completed- CPAP 11/13/2024 MDD (major depressive disorder), recurrent episode, moderate (ICD-10 - F33.1) Preventing Depression From Coming Back: Care Instructions material was published, Depression Treatment: Care Instructions material was published, Seasonal Affective Disorder: Care Instructions material was published 1. depression - labs done PCP - seeing [employer] for hormone isuses- seen [employer] and watching thyroid first discuss and educated on medications options for depression and anxiety Auvelity 45/105 mg 1 tablet twice a day - educated on rx educated on take as prescribed educated on medical issues may cause depresison and anxiety s/s - Thyroid high - see Endo and A1C 7 and hormonal- improved Hip pain Lexapro 20 mg daily Effexor 150 mg daily monitor B/P continue therapy colonoscopy, mammogram PAP 2023 eye provider 06/28/23 2. Generalized anxiety disorder - Lexapro 20 mg daily Buspar 10 mg a day in am reported has a hard time remember more than daily sleep study completed- CPAP 06/30/2024 Encounter for screening for depression (ICD-10 - Z13.31) 1. depression - increase depression labs done PCP - thyroid low and rechecking in 2 weeks seeing [employer] for hormone isuses discuss and educated on [...] more than daily sleep study completed- CPAP 07/24/2024 Primary insomnia (ICD-10 - F51.01) Insomnia: Care Instructions material was published, Learning About Sleeping Well material was published 1. depression - labs done PCP - seeing [employer] for hormone isuses- seen [employer] and watching thyroid first discuss and educated on medications options for depression and anxiety Auvelity 45/105 mg 1 tablet twice a day - educated on rx educated on take as prescribed educated on medical issues may cause depresison and anxiety s/s - Thyroid high - see Endo and A1C 7 and hormonal- recent Hip pain Lexapro 20 mg daily Effexor 150 mg daily monitor B/P continue therapy colonoscopy, mammogram PAP 2023 eye provider 06/28/23 2. Generalized anxiety disorder - Lexapro 20 mg daily Buspar 10 mg a day in am reported has a hard time remember more than daily sleep study completed- CPAP 11/13/2024 Primary insomnia (ICD-10 - F51.01) Insomnia: Care Instructions material was published, Learning About Sleeping Well material was published 1. depression - labs done PCP - seeing [employer] for hormone isuses- seen [employer] and watching thyroid first discuss and educated on medications options for depression and anxiety Auvelity 45/105 mg 1 tablet twice a day - educated on rx educated on take as prescribed educated on medical issues may cause depresison and anxiety s/s - Thyroid high - see Endo and A1C 7 and hormonal- improved Hip pain Lexapro 20 mg daily Effexor 150 mg daily monitor B/P continue therapy colonoscopy, mammogram PAP 2023 eye provider 06/28/23 2. Generalized anxiety disorder - Lexapro 20 mg daily Buspar 10 mg a day in am reported has a hard time remember more than daily sleep study completed- CPAP 11/13/2024 Encounter for screening for depression (ICD-10 - Z13.31) 1. depression - labs done PCP - seeing [employer] for hormone isuses- seen [employer] and watching thyroid first discuss and educated on medications options for depression and anxiety Auvelity 45/105 mg 1 tablet twice a day - educated on rx educated on take as prescribed educated on medical issues may cause depresison and anxiety s/s - Thyroid high - see Endo and A1C 7 and hormonal- improved Hip pain Lexapro 20 mg daily Effexor 150 mg daily monitor B/P continue therapy colonoscopy, mammogram PAP 2023 eye provider 06/28/23 2. Generalized anxiety disorder - Lexapro 20 mg daily Buspar 10 mg a day in am reported has a hard time remember more than daily sleep study completed- CPAP 07/24/2024 Encounter for screening for depression (ICD-10 - Z13.31) 1. depression - labs done PCP - seeing [employer] for hormone isuses- seen [employer] and watching thyroid first discuss and educated on medications options for depression and anxiety Auvelity 45/105 mg 1 tablet twice a day - educated on rx educated on take as prescribed educated on medical issues may cause depresison and anxiety s/s - Thyroid high - see Endo and A1C 7 and hormonal- recent Hip pain Lexapro 20 mg daily Effexor 150 mg daily monitor B/P continue therapy colonoscopy, mammogram PAP 2023 eye provider 06/28/23 2. Generalized anxiety disorder - Lexapro 20 mg daily Buspar 10 mg a day in am reported has a hard time remember more than daily sleep study completed- CPAP 06/30/2024 Other Venlafaxine material was published, Dextromethorphan and Bupropion material was published, Buspirone material was published 1. depression - increase depression labs done PCP - thyroid low and rechecking in 2 weeks seeing [employer] for hormone isuses discuss and educated on [...] sleep study completed- CPAP Plan Of Treatment Next Appt Details Provider Name:Nilam Molina , 05/07/2025 08:15:00 AM, [address], [facility] [address], [place], [address], Insurance Providers Payer Name Payer Address Payer Phone Subscriber Number Group Number Insured Name Patient Relationship to Insured Coverage Start Date Coverage End Date [facility] [address] [place] [address] [id number] CHRIS COVARRUBIAS Self - patient is the insured Medical (General) History Medical History History ICD Code Problems: Acute COVID-19 Generalized anxiety disorder Mild major depression Primary insomnia , Surgical History Surgery Date(Month/Year) Any surgical history 05/05/2021 Other right hand 05/05/2021 Other 09/15/2018 Other left hand 12/01/2021
--- OUTSIDE RECORDS SUMMARY | 2025-01-03 09:02 | XMS_ITS | Encounter Summary ---
Author Organization [facility] Address [address] [place] [address] Care Team Providers Care Study Abroad Advisor Name Role Phone Malathi Mackay Primary Care Provider [phone] Encounter Details Date Type Department Care Team (Late st Contact Info) Description 04/26/2020 [employer] Message Enc [facility] Family & Internal Medicine [facility] [address] [place] [address] [facility], [facility] Provider Pap smear result Social [...] on file Legal Sex Female 12:54 PM MICROARRAY ANALYST Gender Identity Not on file Sexual Orientation Not on file COVID-19 Exposure Response Date Recorded In the last month, have you been in contact with someone who was confirmed or suspected to have Coronavirus / COVID-19? No / Unsure 04/17/2020 7:34 AM MICROARRAY ANALYST documented as of this encounter Plan of Treatment Not on file documented as of this encounter Visit Diagnoses Not on filedocumented in this encounter Care Teams Study Abroad Advisor Relationship Specialty Start Date End Date Malathi Mackay [place] [id number] [place] [id number] PCP - General PHYSICIAN SUBJECT SCIENTIFIC RESEARCH 04/08/20 documented as of this encounter
--- OUTSIDE RECORDS SUMMARY | 2025-01-03 09:02 | XMS_ITS | Clinical Summary ---
Author Organization [facility] Address [address] [place] [address] Care Team Providers Care Black Off Worker Name Role Phone Unavailable Primary Care Provider Unavailabl e Source Comments [facility]!,non-owned Affiliates and Associated Physician Practices is amultiple site organization consisting of ambulatory clinics and hospital sitesin [place], [place], [place] and [place]. This disclosure is being madepursuant to the Care Everywhere program and may not contain all information available regarding this patient. Last updated 17.[facility] 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
--- NOTE | 2025-01-18 12:29 | WPDHOLTEREM ---
Holter/Event Monitor Holter/Event Monitor Date of procedure: 01/03/25 Holter/Event Procedure: 3-7 Day Holter Monitor Indications: Palpitations Conclusion: 1. 7 days holter monitor on 01/03/25. 2. Underlying rhythm is sinus rhythm. HR range 60-151 bpm; average HR 87 bpm. HR at 151 bpm was on 01/07/25 at 4:07 pm. 3. There are rare premature supraventricular complexes. No supraventricular tachycardia. 4. There are rare premature ventricular complexes. No ventricular tachycardia. 5. No significant pauses greater than 3 seconds. 6. Patient reports 5 episodes of symptoms of heart racing, chest pain, fluttering, 84-90 bpm with 2 episodes with PVC's.
== END 2025-01-03 08:42 | disposition home or self-care (01) ==
PROVIDERS: PCP Family Medicine; Visit Provider Nurse Practitioner Family
DX: R94.31 Abnormal electrocardiogram [ECG] [EKG] (principal); R00.2 Palpitations
CPT/HCPCS: 93242

== ENCOUNTER 2025-01-12 01:46 | Day surgery (SDC) | payer BC, SELFPAY ==
[2025-01-02 13:47] VITALS: BMI 40.4
[2025-01-12 06:25] VITALS: BP 135/80; PULSE 92; RESP 16; TEMP 36.2; O2SAT 98; BMI 38.9
[2025-01-12] MEDS: LACTATED RINGERS 1,000 ML 150 ML IV CONT (06:36)
--- NOTE | 2025-01-12 07:07 | WPDANESEPPF ---
Anes - Initial Pre Proc Eval Procedure: Operation Date: 01/12/25 07:30 Proposed Procedures p Screening Colonoscopy - Johnson Umanzor MD Date/Time: 01/12/25 07:07 Surgeon: Johnson Umanzor MD Pre Op Diagnosis: screening Patient Data Age: 49 Gender: F Height: 1.85 m Weight: 134.1 kg Last Vital Signs Temp 97.1 F L 01/12/25 06:25 Pulse 92 01/12/25 06:25 Resp 16 01/12/25 06:25 BP 135/80 01/12/25 06:25 Pulse Ox 98 01/12/25 06:25 O2 Del Method Room Air 01/12/25 06:25 Allergies Allergy/AdvReac Type Severity Reaction Status Date / Time vancomycin Allergy Mild Hives Verified 01/12/25 06:23 Home Medications ?Medication ?Instructions ?Recorded ?Confirmed ?Type escitalopram oxalate 20 mg tablet 20 mg PO DAILY 03/16/19 01/12/25 History multivitamin (Multiple Vitamins 1 tablet PO DAILY 03/16/19 01/12/25 History tablet) venlafaxine 150 mg 150 mg PO DAILY 03/16/19 01/12/25 History capsule,extended release 24 hr ketoconazole 2 % topical cream 1 applic topical DAILY 02/16/22 01/12/25 History 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,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,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 ea 03/17/23 12/27/24 Rx (Dexcom G7 Top Cleaner) buspirone 5 mg tablet 10 mg PO ONCE 07/07/23 01/12/25 History glucagon 1 mg/0.2 mL subcutaneous 1 mg (0.2 mL) subcut ONCE #0.4 mL 03/22/24 01/02/25 Rx auto-injector (Gvmarisol HypoPen 2-Pack) pen needle, diabetic 32 gauge x #400 ea 06/29/24 12/27/24 Rx /32 aripiprazole 5 mg tablet (Abilify) 5 mg PO DAILY 07/12/24 01/12/25 History ketorolac 10 mg tablet 10 mg PO Q8H PRN pain 5 days #20 07/13/24 01/02/25 Rx tabs methocarbamol 750 mg tablet 750 mg PO TID PRN pain #20 tabs 07/13/24 01/02/25 Rx losartan 100 mg tablet 100 mg PO DAILY #90 tabs 11/07/24 01/12/25 Rx tirzepatide 15 mg/0.5 mL 15 mg (0.5 mL) subcut WEEKLY #2 mL 11/07/24 01/12/25 Rx subcutaneous pen injector (Mounjaro) insulin regular hum U-500 conc 500 200 unit (0.4 mL) subcut DAILY #36 11/08/24 01/12/25 Rx unit/mL(3 mL) subcut pen (Humulin mL R U-500 (Conc) Insulin Kwikpen) ezetimibe 10 mg tablet (Zetia) 10 mg PO DAILY #90 tabs 11/09/24 01/12/25 Rx felodipine 5 mg tablet,extended 5 mg PO DAILY #90 tabs 11/09/24 01/12/25 Rx release 24 hr hydrochlorothiazide 25 mg tablet See Rx Instructions .Route 11/09/24 12/27/24 Rx Held on 12/27/24. .COMPLEX #90 tabs Instructions: .Provider Order 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 sensor (Dexcom G7 #9 ea 12/13/24 12/27/24 Rx Sensor device) dapagliflozin propanediol 10 mg 10 mg PO DAILY #90 tabs 12/13/24 01/12/25 Rx tablet (Farxiga) methimazole 5 mg tablet 5 mg PO DAILY #90 tabs 12/28/24 01/12/25 Rx Patient hx anesthesia problems: none Family hx anesthesia problems: none Results Review: All pre-operative results and documents have been reviewed as part of the pre-operative evaluation. [facility] Past Medical History Medical History Headache Peripheral neuropathy Obesity, Class III, BMI 40-49.9 (morbid obesity) MACARENA (obstructive sleep apnea) Insomnia Anemia Bilateral hand numbness Bilateral knee pain Hypertension Type 2 diabetes mellitus with hyperglycemia Anxiety Hyperlipidemia Surgical History Surgical History Previous back surgery x2 History of surgery on wrist 05/05/21, carpal tunnel right Family History Family History Other Asthma Cerebrovascular accident Depression Diabetes mellitus Family history of alcoholism Family history of lymphoma Family history of thyroid disease Heart problem Hypertension Malignant neoplasm of prostate Social History Social History Smoking packs per day: 0.5 Smoking cigarettes per day: 10.0 Years smoked: 10 Smoking pack-years: 5.00 Smoking status: Former smoker Additional smoking assessment comments: Quit a long time ago 20+ years ago. Alcohol intake: never Substance use: never Lack of Transportation: No Lack of Food: Never True Current Housing: I Have Housing Concerned About Future Housing: No Difficulty Paying Gas/Electric Bills: No Difficulty Paying for Meds: No Currently Unemployed: No Education: High School Diploma/GED Difficulty w/ Childcare or Family Care: No Anes - Eval Final PreProcedure Day of Procedure 01/12/25 07:07 Patient weight: obese Lungs: normal air movement Airway: Mallampati scale class II Neurological: alert and oriented Last oral intake: >/= 8 hours ASA classification: III Emergent: no Anesthetic plan: proceed Anesthesia type and monitoring: general GIVS and standard monitoring Results Review: All pre-operative results and documents have been reviewed as part of the pre-operative evaluation. BMI 39, DM fsbs 84, HTN, hyperlipidemia, neuropathy. Informed Consent: The patient's anesthetic plan and its attendant risks and benefits were discussed with the patient/family/POA. Questions were solicited and answers provided to the satisfaction of the patient/family/POA.
--- NOTE | 2025-01-12 07:32 | PM.IMHP ---
H&P: HPI History of Present Illness Date/Time: 01/12/25 07:32 Chief Complaint: Screening colonoscopy Narrative: This is the patient's first colonoscopy. There are no GI symptoms and there is no family history of colorectal cancer. Review of Systems Review of Systems: All systems reviewed & are unremarkable except as noted in HPI and below PMFSH Past Medical History Medical History Headache Peripheral neuropathy Obesity, Class III, BMI 40-49.9 (morbid obesity) MACARENA (obstructive sleep apnea) Insomnia Anemia Bilateral hand numbness Bilateral knee pain Hypertension Type 2 diabetes mellitus with hyperglycemia Anxiety Hyperlipidemia Surgical History Surgical History Previous back surgery x2 History of surgery on wrist 05/05/21, carpal tunnel right Family History Family History Other Asthma Cerebrovascular accident Depression Diabetes mellitus Family history of alcoholism Family history of lymphoma Family history of thyroid disease Heart problem Hypertension Malignant neoplasm of prostate Social History Social History Smoking packs per day: 0.5 Smoking cigarettes per day: 10.0 Years smoked: 10 Smoking pack-years: 5.00 Smoking status: Former smoker Additional smoking assessment comments: Quit a long time ago 20+ years ago. Alcohol intake: never Substance use: never Lack of Transportation: No Lack of Food: Never True Current Housing: I Have Housing Concerned About Future Housing: No Difficulty Paying Gas/Electric Bills: No Difficulty Paying for Meds: No Currently Unemployed: No Education: High School Diploma/GED Difficulty w/ Childcare or Family Care: No Meds Home Medications and Allergies Home Medications ?Medication ?Instructions ?Recorded ?Confirmed ?Type escitalopram oxalate 20 mg tablet 20 mg PO DAILY 03/16/19 01/12/25 History multivitamin (Multiple Vitamins 1 tablet PO DAILY 03/16/19 01/12/25 History tablet) venlafaxine 150 mg 150 mg PO DAILY 03/16/19 01/12/25 History capsule,extended release 24 hr ketoconazole 2 % topical cream 1 applic topical DAILY 02/16/22 01/12/25 History 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,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,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 ea 03/17/23 12/27/24 Rx (Dexcom G7 Cloth Finishing Range Back Tender) buspirone 5 mg tablet 10 mg PO ONCE 07/07/23 01/12/25 History glucagon 1 mg/0.2 mL subcutaneous 1 mg (0.2 mL) subcut ONCE #0.4 mL 03/22/24 01/02/25 Rx auto-injector (Gvoke HypoPen 2-Pack) pen needle, diabetic 32 gauge x #400 ea 06/29/24 12/27/24 Rx aripiprazole 5 mg tablet (Abilify) 5 mg PO DAILY 07/12/24 01/12/25 History ketorolac 10 mg tablet 10 mg PO Q8H PRN pain 5 days #20 07/13/24 01/02/25 Rx tabs methocarbamol 750 mg tablet 750 mg PO TID PRN pain #20 tabs 07/13/24 01/02/25 Rx losartan 100 mg tablet 100 mg PO DAILY #90 tabs 11/07/24 01/12/25 Rx tirzepatide 15 mg/0.5 mL 15 mg (0.5 mL) subcut WEEKLY #2 mL 11/07/24 01/12/25 Rx subcutaneous pen injector (Jeannine) insulin regular hum U-500 conc 500 200 unit (0.4 mL) subcut DAILY #36 11/08/24 01/12/25 Rx unit/mL(3 mL) subcut pen (Humulin mL R U-500 (Conc) Insulin Kwikpen) ezetimibe 10 mg tablet (Zetia) 10 mg PO DAILY #90 tabs 11/09/24 01/12/25 Rx felodipine 5 mg tablet,extended 5 mg PO DAILY #90 tabs 11/09/24 01/12/25 Rx release 24 hr hydrochlorothiazide 25 mg tablet See Rx Instructions .Route 11/09/24 12/27/24 Rx Held on 12/27/24. .COMPLEX #90 tabs Instructions: .Provider Order 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 sensor (Dexcom G7 #9 ea 12/13/24 12/27/24 Rx Sensor device) dapagliflozin propanediol 10 mg 10 mg PO DAILY #90 tabs 12/13/24 01/12/25 Rx tablet (Farxiga) methimazole 5 mg tablet 5 mg PO DAILY #90 tabs 12/28/24 01/12/25 Rx Allergies Allergy/AdvReac Type Severity Reaction Status Date / Time vancomycin Allergy Mild Hives Verified 01/12/25 06:23 Vital Signs Vital Signs - 24 hr 01/12/25 06:25 Temperature 97.1 F L Pulse Rate 92 Respiratory Rate 16 Blood Pressure 135/80 Pulse Oximetry 98 Oxygen Delivery Room Air Exam Const: General: cooperative and healthy appearing Resp: Effort & Inspection: normal respiratory effort and able to speak in complete sentences Auscultation: clear to auscultation bilaterally Cardio: Rate: regular rate Rhythm: regular rhythm GI: Inspection: normal to inspection GI Palp: No No hepatosplenomegaly present Auscultation: normal bowel sounds Rectal Exam: deferred Skin: General skin exam: normal color Psych: Appearance: grossly normal Mental Status: mental status grossly normal Assessment and Plan Assessment and plan (1) Encounter for screening colonoscopy: Code(s): Z12.11 - Encounter for screening for malignant neoplasm of colon Status: Acute Assessment and Plan: The patient is deemed a good candidate for the procedure. Consent signed. Will proceed.
--- NOTE | 2025-01-12 07:48 | SUR.OPER ---
per cecum unreachable, started withdrawal timer at hepatic flexure.
[2025-01-12 08:00] VITALS: BP 101/65; PULSE 74; RESP 17; O2SAT 97
[2025-01-12 08:10] VITALS: BP 103/67; PULSE 77; RESP 17; O2SAT 97
--- NOTE | 2025-01-12 08:16 | SUR.PHASEII ---
Patient's blood glucose on CGM is 155 at time of recovery.
[2025-01-12 08:20] VITALS: BP 112/60; PULSE 76; RESP 17; O2SAT 99
[2025-01-12 12:48] LABS: BEDSIDEPREGUCG Negative (Negative)
== END 2025-01-12 08:29 | disposition home or self-care (01) ==
PROVIDERS: PCP Family Medicine; Referring Provider Family Medicine; Visit Provider Internal Medicine Gastroenterology
PROC: 0DJD8ZZ Inspection of Lower Intestinal Tract, Via Natural or Artificial Opening Endoscopic (ICD-10-PCS; CPT 45378; principal; 2025-01-12 07:30)
DX: Z12.11 Encounter for screening for malignant neoplasm of colon (principal); Z87.891 Personal history of nicotine dependence; E66.9 Obesity, unspecified; Z68.39 Body mass index [BMI] 39.0-39.9, adult
CPT/HCPCS: 45378; J2003; J2704; J7120

== ENCOUNTER 2025-03-03 07:09 | Outpatient (CLI) | payer BC, SELFPAY ==
--- OUTSIDE RECORDS SUMMARY | 2025-03-03 07:13 | XMS_ITS | Clinical Summary ---
Author Organization [facility] Address [address] [place] [address] Care Team Providers Care First Mate Name Role Phone Unavailable Primary Care Provider Unavailabl e Source Comments [facility] [employer],non-owned Affiliates and Associated Physician Practices is amultiple site organization consisting of ambulatory clinics and hospital sitesin [place], [place], [place] and [place]. This disclosure is being madepursuant to the Care Everywhere program and may not contain all information available regarding this patient. 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
--- OUTSIDE RECORDS SUMMARY | 2025-03-03 07:13 | XMS_ITS | Clinical Summary ---
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 Gender Identity Not on file Sexual Orientation Not on file Last Filed Vital Signs Vital Sign Reading Time Taken Comments Blood Pressure 138/80 04/17/2020 7:52 AM SUPERVISOR RICE MILLING Pulse 86 04/17/2020 7:52 AM SUPERVISOR RICE MILLING Temperature 36.2 C (97.2 F) 04/17/2020 7:52 AM SUPERVISOR RICE MILLING Respiratory Rate 18 04/17/2020 7:52 AM SUPERVISOR RICE MILLING Oxygen Saturation 98% 04/17/2020 7:52 AM SUPERVISOR RICE MILLING Inhaled Oxygen Concentration - - Weight 138.9 kg (306 lb 3.2 oz) 04/17/2020 7:52 AM SUPERVISOR RICE MILLING Height 188 cm (6' 2) 04/17/2020 7:52 AM SUPERVISOR RICE MILLING Body Mass Index 39.31 04/17/2020 7:52 AM SUPERVISOR RICE MILLING Plan of Treatment Health Maintenance Due Date [...] - 2024-2 6 season) 2024 07/04/2020, 06/13/2020 Influenza Adult (#1) 2025 02/21/2020 DTaP, Tdap and Td Vaccines ( 1 - Tdap) 04/17/2028 05/02/2018 Postponed from 05/03 (Patient Refused) Hepatitis A Vaccines Aged Out No long er eligible based on patient's age to complete this topic Meningococcal B Vaccine Aged Out No l [...] VINNY TROY DIGI Routine 05/08/2020 8:42 AM SUPERVISOR RICE MILLING Breast cancer screening by mammogram OUTSIDE CYTOPATH CERV/VAG INTERPRET (PAP) (SCAN ORDER) 04/17/2020 from Last 3 Months or Most Recently Relevant to Health Maintenance Results * MG SCREENING W VINNY TROY DIGI (05/08/2020 8:42 AM SUPERVISOR RICE MILLING) Anatomical Region Laterality Modality Breast Bilateral Mammography 05/10/2020 3:26 PM SUPERVISOR RICE MILLING Narrative 05/10/2020 3:27 PM SUPERVISOR RICE MILLING IMAGING STUDIES: MG SCREENING W VINNY TROY [...] Most Recently Relevant to Health Maintenance Insurance [facility] Care Teams Master Cook Relationship Specialty Start Date End Date Malathi Mackay, [address] [address] [place] [address] PCP - General PHYSICIAN CLINICAL TRIAL LEADER 04/08/20
--- OUTSIDE RECORDS SUMMARY | 2025-03-03 07:13 | XMS_ITS | Encounter Summary ---
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 No / Unsure 04/17/2020 7:34 AM SCHOOL BUS MONITOR documented as of this encounter Plan of Treatment Not on file documented as of this encounter Visit Diagnoses Not on filedocumented in this encounter Care Teams Chief Pilot Relationship Specialty Start Date End Date Malathi Mackay [place] [id number] [place] [address] PCP - General PHYSICIAN BENZENE WASHER OPERATOR 04/08/20 documented as of this encounter
--- OUTSIDE RECORDS SUMMARY | 2025-03-03 07:13 | XMS_ITS | Clinical Summary ---
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 Active insulin glargine (TOUJEO MAX) [...] (11/03/2021): Added automatically from request for surgery [id number] Right carpal tunnel syndrome 04/23/2021 Overview (04/23/2021): Added automatically from request for surgery [id number] Closed fracture of fourth cervical vertebra 01/10 [...] Maternal Grandfather Guido Mother Erendira Paternal Grandfather Bill Paternal Grandmother Devika Social History Tobacco Use [...] Sexual Orientation Lesbian 04/21/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
--- OUTSIDE RECORDS SUMMARY | 2025-03-03 07:13 | XMS_ITS | Patient Health Record ---
Author Organization [facility] [employer] Address [address] [place] [address] Care Team Providers Care Infection Prevention Practitioner Name Role Phone Alvaro Parker MD Primary Care Provider Nilam Manzo Unavailable [phone] Allergies Allergen (clinical drug ingredient) Drug/Non Drug Allergy documented on EMR Reaction Allergy Type Onset Date Status vancomycin Vancomycin Unknown Drug Allergy 06/28/2023 Acti ve Reason For Referral No Information Medications Medication SIG (Take, Route, Frequency, Duration) Notes Start Date End Date Status hydroCHLOROthiazide 25 MG Tablet Oral 06/28/2023 Active Glimepiride 4 MG Tablet Oral 06/28/2023 Active Melatonin *Pick strength-form from [employer] for eRX* 06/28/2023 Active Losartan Potassium 100 MG Tablet Oral 06/28/2023 Active Hydrocortisone 2.50% Cream External 06/28/2023 Active Mounjaro 10 MG/0.5ML Solution Pen-injector Subcutaneous *Reorder from [employer] for eRx and Interaction Alerts* 06/28/2023 Active Ezetimibe 10 MG Tablet Oral 06/28/2023 Active Felodipine ER 5 mg Tablet Extended Release 24 Hour Oral 06/28/2023 Act sang FREESTYLE JH 2 SENSOR KIT *Reorder from [employer] for eRx and Interaction Alerts* 06/28/2023 Active [...] x 5/32 NEEDLE, DISPOSABLE MISCELLANEOUS *Reorder from [employer] for eRx and Interaction Alerts* 06/28/2023 Active [...] Status Risk Notes Problem Generalized anxiety disorder (64290247) Generalized anxiety disorder (F41.1) 06/28/19 24 Active confirmed Problem Primary insomnia (7308835) Primary insomnia (F51.01) 06/28/19 24 Active confirmed Problem Screening for cardiovascular system disease (385909565) Encounter for screening for cardiovascular disorders (Z13.6) Active confirmed Problem Depression Screening (220920486) Encounter for screening for depression (Z13.31) Active confirmed Problem Moderate recurrent major depression (33315669) MDD (major depressive disorder), recurrent episode, moderate (F33.1) Active confirmed Problem Mild recurrent major depression (75596929) MDD (major depressive disorder), recurrent episode, mild (F33.0) Active confirmed Vital Signs Heart Rate 85 /min 11/13/2024 Respiratory Rate 18 /min 07/24/2024 Height-cm 187.96 cm 11/13/2024 Blood pressure diastolic 87 mm Hg 11/13/2024 Weight-kg 145.15 kg 11/13/2024 Height 74.00 in 11/13/2024 Blood pressure systolic 141 mm Hg 11/13/2024 Weight 320 lbs 11/13/2024 BMI 41.08 kg/m2 11/13/2024 Encounters Encounter Location Date Provider Diagnosis [facility] [place] [address] [address] 06/30/2024 Nilam Therhai Generalized anxiety disorder F41.1 ; MDD (major depressive disorder), recurrent episode, moderate F33.1 ; Primary insomnia F51.01 and Encounter for screening for depression Z13.31 [facility] [place] [address] [address] 07/24/2024 Nilam Thery Encounter for screen ing for cardiovascular disorders Z13.6 ; Generalized anxiety disorder F41.1 ; MDD (major depressive disorder), recurrent episode, moderate F33.1 ; Primary insomnia F51.01 and Encounter for screening for depression Z13.31 [facility] [place] [address] [address] 10/23/2024 Nilam Thery [facility] [place] [address] [address] 11/13/2024 Nilam Thery Encounter for screen ing for cardiovascular disorders Z13.6 ; Generalized anxiety disorder F41.1 ; MDD (major depressive disorder), recurrent episode, moderate F33.1 ; Primary insomnia F51.01 and Encounter for screening for depression Z13.31 [facility] [place] [address] [address] 11/15/2024 Nilam Thery [facility] [place] [address] [address] 06/27/2024 Nilam Molina [facility] [employer] [address] [place] [address] 11/13/2024 Nilam Molina Assessments Encounter Date Diagnosis (ICD Code) Assessment Notes Treatment Notes Treatment Clinical Notes Section Notes 11/13/2024 Encounter for screening for cardiovascular disorders (ICD-10 - Z13.6) 1. depression - labs done PCP - seeing PUBLIC SERVICES LIBRARIAN for hormone isuses- seen PUBLIC SERVICES LIBRARIAN and watching thyroid first discuss and educated [...] depression - labs done PCP - seeing PUBLIC SERVICES LIBRARIAN for hormone isuses- seen PUBLIC SERVICES LIBRARIAN and watching thyroid first discuss and educated [...] low and rechecking in 2 weeks seeing PUBLIC SERVICES LIBRARIAN for hormone isuses discuss and educated on [...] low and rechecking in 2 weeks seeing PUBLIC SERVICES LIBRARIAN for hormone isuses discuss and educated on [...] low and rechecking in 2 weeks seeing PUBLIC SERVICES LIBRARIAN for hormone isuses discuss and educated on [...] depression - labs done PCP - seeing PUBLIC SERVICES LIBRARIAN for hormone isuses- seen PUBLIC SERVICES LIBRARIAN and watching thyroid first discuss and educated [...] depression - labs done PCP - seeing PUBLIC SERVICES LIBRARIAN for hormone isuses- seen PUBLIC SERVICES LIBRARIAN and watching thyroid first discuss and educated [...] depression - labs done PCP - seeing PUBLIC SERVICES LIBRARIAN for hormone isuses- seen PUBLIC SERVICES LIBRARIAN and watching thyroid first discuss and educated [...] depression - labs done PCP - seeing PUBLIC SERVICES LIBRARIAN for hormone isuses- seen PUBLIC SERVICES LIBRARIAN and watching thyroid first discuss and educated [...] low and rechecking in 2 weeks seeing PUBLIC SERVICES LIBRARIAN for hormone isuses discuss and educated on [...] depression - labs done PCP - seeing PUBLIC SERVICES LIBRARIAN for hormone isuses- seen PUBLIC SERVICES LIBRARIAN and watching thyroid first discuss and educated [...] depression - labs done PCP - seeing PUBLIC SERVICES LIBRARIAN for hormone isuses- seen PUBLIC SERVICES LIBRARIAN and watching thyroid first discuss and educated [...] depression - labs done PCP - seeing PUBLIC SERVICES LIBRARIAN for hormone isuses- seen PUBLIC SERVICES LIBRARIAN and watching thyroid first discuss and educated [...] depression - labs done PCP - seeing PUBLIC SERVICES LIBRARIAN for hormone isuses- seen PUBLIC SERVICES LIBRARIAN and watching thyroid first discuss and educated [...] low and rechecking in 2 weeks seeing PUBLIC SERVICES LIBRARIAN for hormone isuses discuss and educated on [...] Provider Name:Nilam Molina , 05/07/2025 08:15:00 AM, [address], [facility] [address], [place], [address], Insurance Providers Payer Name Payer Address Payer Phone Subscriber Number Group Number Insured Name Patient Relationship to Insured Coverage Start Date Coverage End Date [facility] [address] [place] [address] [id number] CHRIS COVARRUBIAS Self - patient is the insured Medical (General) History Medical History History ICD Code Problems: Acute COVID-19 Generalized anxiety disorder Mild major depression Primary insomnia , Surgical History Surgery Date(Month/Year) Any surgical history 05/05/2021 Other right hand 05/05/2021 Other 09/15/2018 Other left hand 12/01/2021
[2025-03-03 08:45] LABS: Thyroid Stimulating Hormone 0.706 uIU/mL (0.465-4.680)
[2025-03-03 09:24] LABS: Free T4 Free Thyroxine 0.82 ng/dL (0.78-2.19)
== END 2025-03-03 07:10 | disposition home or self-care (01) ==
LOC: ANHLAB 07:11
PROVIDERS: PCP Family Medicine; Visit Provider Nurse Practitioner Family
DX: R79.89 Other specified abnormal findings of blood chemistry (principal)
CPT/HCPCS: 36415; 84439; 84443

== ENCOUNTER 2025-04-09 09:55 | Outpatient (CLI) | payer BC, SELFPAY ==
--- OUTSIDE RECORDS SUMMARY | 2025-04-09 10:21 | XMS_ITS | Patient Health Record ---
Author Organization [facility] Address [address] [place] [address] Care Team Providers Care Informatica Architect Name Role Phone Alvaro Parker MD Primary Care Provider Nilam Manzo Unavailable [phone] Allergies Allergen (clinical drug ingredient) Drug/Non Drug Allergy documented on EMR Reaction Allergy Type Onset Date Status vancomycin Vancomycin Unknown Drug Allergy 06/28/2023 Acti ve Reason For Referral No Information Medications Medication SIG (Take, Route, Frequency, Duration) Notes Start Date End Date Status hydroCHLOROthiazide 25 MG Tablet Oral 06/28/2023 Active Glimepiride 4 MG Tablet Oral 06/28/2023 Active Melatonin *Pick strength-form from [employer] for eRX* 06/28/2023 Active Losartan Potassium 100 MG Tablet Oral 06/28/2023 Active Hydrocortisone 2.50% Cream External 06/28/2023 Active Mounjaro 10 MG/0.5ML Solution Pen-injector Subcutaneous *Reorder from [employer] for eRx and Interaction Alerts* 06/28/2023 Active Ezetimibe 10 MG Tablet Oral 06/28/2023 Active Felodipine ER 5 mg Tablet Extended Release 24 Hour Oral 06/28/2023 Act sang Venlafaxine HCl ER 150 MG Capsule Extended Release 24 Hour 1 capsule every motning Oral Once a day; Duration: 30 days Active busPIRone HCl 10 MG Tablet 1 tablet Oral Once a day; Duration: 30 days Active FREESTYLE JH 2 SENSOR KIT *Reorder from [employer] for eRx and Interaction Alerts* 06/28/2023 Active Ketoconazole 2% Cream External 06/28/2023 Active Clobetasol Propionate 0.05 % Ointment External 06/28/2023 Active Escitalopram Oxalate 20 MG Tablet 1 tablet Once a day; Duration: 30 days Active BD ULTRA-FINE PEN NEEDLE 32 gauge x 5/32 NEEDLE, DISPOSABLE MISCELLANEOUS *Reorder from [employer] for eRx and Interaction Alerts* 06/28/2023 Active Farxiga 10 MG Tablet Oral 06/28/2023 Active Dextromethorphan-buPROPio n ER 45-105 MG Tablet Extended Release 1 tablet Orally twice a day; Duration: 90 days Active Immunizations [...] Status Risk Notes Problem Generalized anxiety disorder (40264782) Generalized anxiety disorder (F41.1) 06/28/19 24 Active confirmed Problem Primary insomnia (4676054) Primary insomnia (F51.01) 06/28/19 24 Active confirmed Problem Screening for cardiovascular system disease (505830546) Encounter for screening for cardiovascular disorders (Z13.6) Active confirmed Problem Depression Screening (420859162) Encounter for screening for depression (Z13.31) Active confirmed Problem Moderate recurrent major depression (00492312) MDD (major depressive disorder), recurrent episode, moderate (F33.1) Active confirmed Problem Mild recurrent major depression (71616464) MDD (major depressive disorder), recurrent episode, mild (F33.0) Active confirmed Vital Signs Heart Rate 85 /min 11/13/2024 Respiratory Rate 18 /min 07/24/2024 Height-cm 187.96 cm 11/13/2024 Blood pressure diastolic 87 mm Hg 11/13/2024 Weight-kg 145.15 kg 11/13/2024 Height 74.00 in 11/13/2024 Blood pressure systolic 141 mm Hg 11/13/2024 Weight 320 lbs 11/13/2024 BMI 41.08 kg/m2 11/13/2024 Encounters Encounter Location Date Provider Diagnosis [facility] [employer] [place] [address] [address] 06/30/2024 Nilam Therhai Generalized anxiety disorder F41.1 ; MDD (major depressive disorder), recurrent episode, moderate F33.1 ; Primary insomnia F51.01 and Encounter for screening for depression Z13.31 [facility] [place] [address] [address] 07/24/2024 Nilam Thery Encounter for screen ing for cardiovascular disorders Z13.6 ; Generalized anxiety disorder F41.1 ; MDD (major depressive disorder), recurrent episode, moderate F33.1 ; Primary insomnia F51.01 and Encounter for screening for depression Z13.31 [facility] [place] [address] [address] 10/23/2024 Nilam Thery [facility] [place] [address] [address] 11/13/2024 Nilam Thery Encounter for screen ing for cardiovascular disorders Z13.6 ; Generalized anxiety disorder F41.1 ; MDD (major depressive disorder), recurrent episode, moderate F33.1 ; Primary insomnia F51.01 and Encounter for screening for depression Z13.31 [facility] [place] [address] [address] 11/15/2024 Nilam Thery [facility] [place] [address] [address] 03/27/2025 Nilam Molina MDD (major depressiv e disorder), recurrent episode, moderate F33.1 and Generalized anxiety disorder F41.1 [facility] [employer] [facility] [address] [place] [address] 06/27/2024 Nilam Molina [facility] [employer] [facility] [address] [place] [address] 11/13/2024 Nilam Jesse Assessments Encounter Date Diagnosis (ICD Code) Assessment [...] low and rechecking in 2 weeks seeing SHOULDER JOINER for hormone isuses discuss and educated on [...] low and rechecking in 2 weeks seeing SHOULDER JOINER for hormone isuses discuss and educated on [...] depression - labs done PCP - seeing SHOULDER JOINER for hormone isuses- seen SHOULDER JOINER and watching thyroid first discuss and educated [...] depression - labs done PCP - seeing SHOULDER JOINER for hormone isuses- seen SHOULDER JOINER and watching thyroid first discuss and educated [...] more than daily sleep study completed- CPAP 03/27/2025 MDD (major depressive disorder), recurrent episode, moderate (ICD-10 - F33.1) 03/27/2025 Generalized anxiety disorder (ICD-10 - F41.1) 11/13/2024 Generalized anxiety disorder (ICD-10 - F41.1) Learning About Generalized Anxiety Disorder material was published, Generalized Anxiety Disorder: Care Instructions material was published, Learning About Anxiety Disorders material was published, Learning About Transcranial Magnetic Stimulation (TMS) material was published 1. depression - labs done PCP - seeing SHOULDER JOINER for hormone isuses- seen SHOULDER JOINER and watching thyroid first discuss and educated [...] depression - labs done PCP - seeing SHOULDER JOINER for hormone isuses- seen SHOULDER JOINER and watching thyroid first discuss and educated [...] low and rechecking in 2 weeks seeing SHOULDER JOINER for hormone isuses discuss and educated on [...] depression - labs done PCP - seeing SHOULDER JOINER for hormone isuses- seen SHOULDER JOINER and watching thyroid first discuss and educated [...] depression - labs done PCP - seeing SHOULDER JOINER for hormone isuses- seen SHOULDER JOINER and watching thyroid first discuss and educated [...] depression - labs done PCP - seeing SHOULDER JOINER for hormone isuses- seen SHOULDER JOINER and watching thyroid first discuss and educated [...] low and rechecking in 2 weeks seeing SHOULDER JOINER for hormone isuses discuss and educated on [...] depression - labs done PCP - seeing SHOULDER JOINER for hormone isuses- seen SHOULDER JOINER and watching thyroid first discuss and educated [...] depression - labs done PCP - seeing SHOULDER JOINER for hormone isuses- seen SHOULDER JOINER and watching thyroid first discuss and educated [...] depression - labs done PCP - seeing SHOULDER JOINER for hormone isuses- seen SHOULDER JOINER and watching thyroid first discuss and educated [...] low and rechecking in 2 weeks seeing SHOULDER JOINER for hormone isuses discuss and educated on [...] Of Treatment Next Appt Details Provider Name:Nilam Jesse , 05/07/2025 08:15:00 AM, [address], [place], [address], Insurance Providers Payer Name Payer Address Payer Phone Subscriber Number Group Number Insured Name Patient Relationship to Insured Coverage Start Date Coverage End Date [facility] [address] [place] [address] [id number] CHRIS COVARRUBIAS Self - patient is the insured Medical (General) History Medical History History ICD Code Problems: Acute COVID-19 Generalized anxiety disorder Mild major depression Primary insomnia , Surgical History Surgery Date(Month/Year) Any surgical history 05/05/2021 Other right hand 05/05/2021 Other 09/15/2018 Other left hand 12/01/2021
--- OUTSIDE RECORDS SUMMARY | 2025-04-09 10:21 | XMS_ITS | Clinical Summary ---
Author Organization [facility] Address [address] [place] [address] Care Team Providers Care Slot Manager Name Role Phone Unavailable Primary Care Provider Unavailabl e Source Comments [facility],non-owned Affiliates and Associated Physician Practices is amultiple site organization consisting of ambulatory clinics and hospital sitesin [place], [place], [place] and [place]. This disclosure is being madepursuant to the Care Everywhere program and may not contain all information available regarding this patient. 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
--- OUTSIDE RECORDS SUMMARY | 2025-04-09 10:21 | XMS_ITS | Encounter Summary ---
Author Organization [facility] Address [address] [place] [address] Care Team Providers Care Customer Retention Representative Name Role Phone Malathi Mackay Primary Care Provider [phone] Encounter Details Date Type Department Care Team (Late st Contact Info) Description 04/26/2020 Zero9 Message Enc [facility] Family & Internal Medicine [facility] [address] [place] [address] [facility], [facility] Provider Pap smear result Social History Tobacco [...] on file Legal Sex Female 12:54 PM PATENT ENGINEER Gender Identity Not on file Sexual Orientation Not on file COVID-19 Exposure Response Date Recorded In the last month, have you been in contact with someone who was confirmed or suspected to have Coronavirus / COVID-19? No / Unsure 04/17/2020 7:34 AM PATENT ENGINEER documented as of this encounter Plan of Treatment Not on file documented as of this encounter Visit Diagnoses Not on filedocumented in this encounter Care Teams Customer Retention Representative Relationship Specialty Start Date End Date Malathi Mack[place] [id number] [place] [id number] PCP - General PHYSICIAN FISH CAKE MAKER 04/08/20 documented as of this encounter
--- OUTSIDE RECORDS SUMMARY | 2025-04-09 10:21 | XMS_ITS | Clinical Summary ---
Author Organization [facility] Address [address] [place] [address] Care Team Providers Care Assistant Farm Operations Manager Name Role Phone Malathi Mackay Primary Care Provider + [phone] Allergies Active Allergy Reactions Criticality Noted Date [...] on file Legal Sex Female 12:54 PM HAZARDOUS WASTE TECHNICIAN Gender Identity Not on file Sexual Orientation Not on file Last Filed Vital Signs Vital Sign Reading Time Taken Comments Blood Pressure 138/80 04/17/2020 7:52 AM HAZARDOUS WASTE TECHNICIAN Pulse 86 04/17/2020 7:52 AM HAZARDOUS WASTE TECHNICIAN Temperature 36.2 C (97.2 F) 04/17/2020 7:52 AM HAZARDOUS WASTE TECHNICIAN Respiratory Rate 18 04/17/2020 7:52 AM HAZARDOUS WASTE TECHNICIAN Oxygen Saturation 98% 04/17/2020 7:52 AM HAZARDOUS WASTE TECHNICIAN Inhaled Oxygen Concentration - - Weight 138.9 kg (306 lb 3.2 oz) 04/17/2020 7:52 AM HAZARDOUS WASTE TECHNICIAN Height 188 cm (6' 2) 04/17/2020 7:52 AM HAZARDOUS WASTE TECHNICIAN Body Mass Index 39.31 04/17/2020 7:52 AM HAZARDOUS WASTE TECHNICIAN Plan of Treatment Health Maintenance Due Date [...] VINNY TROY DIGI Routine 05/08/2020 8:42 AM HAZARDOUS WASTE TECHNICIAN Breast cancer screening by mammogram OUTSIDE CYTOPATH CERV/VAG INTERPRET (PAP) (SCAN ORDER) 04/17/2020 from Last 3 Months or Most Recently Relevant to Health Maintenance Results * MG SCREENING W VINNY TROY DIGI (05/08/2020 8:42 AM HAZARDOUS WASTE TECHNICIAN) Anatomical Region Laterality Modality Breast Bilateral Mammography 05/10/2020 3:26 PM HAZARDOUS WASTE TECHNICIAN Narrative 05/10/2020 3:27 PM HAZARDOUS WASTE TECHNICIAN IMAGING STUDIES: MG SCREENING W VINNY TROY [...] Recently Relevant to Health Maintenance Insurance [facility] Care Teams Assistant Farm Operations Manager Relationship Specialty Start Date End Date Malathi Mackay, [place] [address] [place] [address] PCP - General PHYSICIAN ACCESS DATABASE DEVELOPER 04/08/20
--- OUTSIDE RECORDS SUMMARY | 2025-04-09 10:21 | XMS_ITS | Clinical Summary ---
Author Organization [facility] Address [address] [place] [address] Care Team Providers Care Director Of Slot Operations Name Role Phone Baltazar Hernandez MD Primary Care Provider [phone] Allergies Active Allergy Reactions Criticality Noted Date [...] tabletIndications :hypertension Take 25 mg by mouth silviculture professor before breakfast Active insulin glargine (TOUJEO MAX) [...] (11/03/2021): Added automatically from request for surgery [id number] Right carpal tunnel syndrome 04/23/2021 Overview (04/23/2021): Added automatically from request for surgery [id number] Closed fracture of fourth cervical vertebra 01/10 [...] Sexual Orientation Lesbian 04/21/2021 4: 52 PM 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
== END 2025-04-09 09:56 | disposition home or self-care (01) ==
LOC: ANHLAB 09:56
PROVIDERS: PCP Family Medicine; Visit Provider Nurse Practitioner Family
DX: R79.89 Other specified abnormal findings of blood chemistry (principal)
CPT/HCPCS: 84445